=== PATIENT | female | born 1935 | race Caucasian/White ===

== ENCOUNTER 2019-01-03 14:38 | Observation (INO) | payer MEDICARE, OTHER ==
[2019-01-03] MEDS ORDERED: ASPIRIN 81 MG PO STA (14:47)
[2019-01-03 15:08] LABS: Basophils % (A) 0 %; Eosinophils # (A) 0.1 k/uL (0-0.7); Eosinophils % (A) 5 %; HCT 35.6 % (34.0-46.0); HGB 11.7 gm/dL (11.4-16.0); Lymphocytes # (A) 0.8 k/uL (1.0-4.8); Lymphocytes % (A) 25 %; MCH 29.8 pg (25.0-35.0); MCHC 32.9 g/dL (31.0-37.0); MCV 90.7 fL (80.0-100.0); Mean Platelet Volume 7.8; Monocytes # (A) 0.2 k/uL (0-1.0); Monocytes % (A) 8 %; Neutrophils # (A) 1.7 k/uL (1.3-7.7); Neutrophils % (A) 58 %; Platelet Count 178 k/uL (150-450); RBC 3.92 m/uL (3.80-5.40); RDW 14.8 % (11.5-15.5)
--- NOTE | 2019-01-03 15:19 | ED ---
General Adult HPI - General Chief complaint: Chest Pain Stated complaint: EKG changes Time Seen by Provider: 01/03/19 14:45 Source: patient, EMS, RN notes reviewed Mode of arrival: EMS Limitations: no limitations - History of Present Illness Initial comments: 83-year-old female with complicated past medical history presents to the emergency department for a chief complaint of EKG changes. Patient had a routine EKG done 2 days ago. Apparently it was transmitted to a food and beverage lead who stated that he could not rule out some anterior elevation. Apparently rhythm strip was sent instead of a twelve-lead EKG. She is denying any chest pain or shortness of breath. She is feeling absolutely her normal self. No abdominal pain. No back pain. No diaphoresis.Patient has no other complaints at this time including shortness of breath, chest pain, abdominal pain, nausea or vomiting, headache, or visual changes. - Related Data Home Medications Medication Instructions Recorded Confirmed Acetaminophen [Tylenol] 2 tab PO Q4H PRN 02/06/14 04/14/14 B Infantis/B Ani/B Pratik/B Bifid 1 each PO BID 02/06/14 04/15/14 [Probiotic 4X Caplet] FLUoxetine HCL 1 tab PO DAILY 02/06/14 04/15/14 Ferrous Sulfate [Feosol] 325 mg PO DAILY 02/06/14 04/15/14 Ipratropium/Albuterol Sulfate 3 ml INHALATION TID 02/06/14 04/14/14 [Duoneb 0.5 mg-3 mg/3 ml Soln] Multivitamins, Thera [Multivitamin 1 each PO DAILY 02/06/14 04/14/14 (formulary)] Propafenone HCl 150 mg PO TID 02/06/14 04/15/14 Gabapentin [Neurontin] 100 mg PO BID 02/12/14 04/15/14 Previous Rx's Medication Instructions Recorded ALPRAZolam [Xanax] 0.25 mg PO TID PRN #60 tablet 02/18/14 Bisacodyl [Dulcolax] 5 mg PO DAILY PRN #30 tablet. 02/18/14 Carbidopa-Levodopa 25-100 mg 1 each PO TID #90 tab 04/19/14 [Sinemet 25-100 mg] HYDROcodone/APAP 5-325MG [Richardson 1 each PO Q4HR PRN #60 tab 04/19/14 5-325] Pantoprazole Sodium [Protonix] 40 mg PO DAILY #30 tab 04/19/14 Allergies Allergy/AdvReac Type Severity Reaction Status Date / Time pneumococcal vaccine Allergy Rash/Hives Verified 01/03/19 14:46 Review of Systems ROS Statement: Those systems with pertinent positive or pertinent negative responses have been documented in the HPI. ROS Other: All systems not noted in ROS Statement are negative. Past Medical History Past Medical History: Atrial Fibrillation, Atrial Flutter, COPD, GERD/Reflux, GI Bleed, Hyperlipidemia, Memory Impairment, Osteoarthritis (OA), Rheumatoid Arthritis (RA), Thyroid Disorder Additional Past Medical History / Comment(s): A. fib/A flutter, COPD, hyperlipidemia, vascular dementia, osteoarthritis, RA, overactive bladder, Parkinson disease, depression, chronic kidney disease stage II, left thyroid nodule, meningioma,. chronic low back pain status post recent L5-S1 discectomy with removal of epidural mass. Last Myocardial Infarction Date:: I thyroid left nodule diagnosed October 2012 suspected goiter, meningioma History of Any Multi-Drug Resistant Organisms: MRSA Date of last positivie culture/infection: 2012 MDRO Source:: unknown Past Surgical History: Appendectomy, Back Surgery, Cholecystectomy, Hysterectomy, Orthopedic Surgery Additional Past Surgical History / Comment(s): multiple leg surgeries, bladder prolapse surgery, bilateral total knee arthroplasty, lumbar laminectomy L5-S1 discectomy with epidural mass resection 02/17/[address] Cosby, appendectomy,. cholecystectomy, hysterectomy orthopedic surgery. Past Anesthesia/Blood Transfusion Reactions: No Reported Reaction Past Psychological History: No Psychological Hx Reported, Anxiety, Depression Smoking Status: Never smoker Past Alcohol Use History: None Reported - Past Family History Father Family Medical History: Myocardial Infarction ([place]) (Father at the age of 74 from myocardial infarction.) Mother Family Medical History: Cancer (Mother from breast cancer) Sister(s) Family Medical History: Myocardial Infarction ([place]) (Patient had 2 sisters one of them from myocardial infarction the other one is living and well) Daughter(s) Family Medical History: No Reported History (Patient has 4 children no major medical problem.) General Exam Limitations: no limitations General appearance: alert, in no apparent distress Head exam: Present: atraumatic, normocephalic, normal inspection Eye exam: Present: normal appearance, PERRL, EOMI. Absent: scleral icterus, conjunctival injection, periorbital swelling ENT exam: Present: normal exam, mucous membranes moist Neck exam: Present: normal inspection, full ROM. Absent: tenderness, meningi smus, lymphadenopathy Respiratory exam: Present: normal lung sounds bilaterally. Absent: respiratory distress, wheezes, rales, rhonchi, stridor Cardiovascular Exam: Present: regular rate, normal rhythm, normal heart sounds. Absent: systolic murmur, diastolic murmur, rubs, gallop, clicks GI/Abdominal exam: Present: soft, normal bowel sounds. Absent: distended, tenderness, guarding, rebound, rigid Neurological exam: Present: alert, oriented X3, CN II-XII intact Psychiatric exam: Present: normal affect, normal mood Course Vital Signs 01/03/19 01/03/19 14:40 15:45 Temperature 98.5 F Pulse Rate 78 68 Respiratory 18 18 Rate Blood Pressure 162/108 143/68 O2 Sat by Pulse 94 L 94 L Oximetry EKG Findings - EKG Comments: EKG Findings:: Normal sinus rhythm, ventricular rate 71, NV interval 172, QTC 491 Medical Decision Making - Medical Decision Making 83-year-old female presents to the emergency department for a chief complaint of EKG changes. Apparently patient had an EKG obtained on Friday and was told today by a food and beverage lead in [place] that he could not rule out some anterior ST elevation. Therefore she was sent here from [facility]. Denying any chest pain or shortness of breath at this time. At this time no ST elevation on EKG. CBC CMP unremarkable. However there is a mild elevation of troponin at 0.032. She will be observed with cardiology consult. - Lab Data Result diagrams: 01/03/19 15:00 01/03/19 15:00 Lab Results 01/03/19 01/03/19 01/03/19 Range/Units 15:00 15:00 15:00 WBC 3.0 L (3.8-10.6) k/uL RBC 3.92 (3.80-5.40) m/uL Hgb 11.7 (11.4-16.0) gm/dL Hct 35.6 (34.0-46.0) % MCV 90.7 (80.0-100.0) fL MCH 29.8 (25.0-35.0) pg MCHC 32.9 (31.0-37.0) g/dL RDW 14.8 (11.5-15.5) % Plt Count 178 (150-450) k/uL Neutrophils % 58 % Lymphocytes % 25 % Monocytes % 8 % Eosinophils % 5 % Basophils % 0 % Neutrophils # 1.7 (1.3-7.7) k/uL Lymphocytes # 0.8 L (1.0-4.8) k/uL Monocytes # 0.2 (0-1.0) k/uL Eosinophils # 0.1 (0-0.7) k/uL Basophils # 0.0 (0-0.2) k/uL PT 10.6 (9.0-12.0) sec INR 1.0 (<1.2) APTT 24.1 (22.0-30.0) sec Sodium 140 (137-145) mmol/L Potassium 4.8 (3.5-5.1) mmol/L Chloride 103 (98-107) mmol/L Carbon Dioxide 31 H (22-30) mmol/L Anion Gap 6 mmol/L BUN 29 H (7-17) mg/dL Creatinine 1.00 (0.52-1.04) mg/dL Est GFR (CKD-EPI)AfAm 61 (>60 ml/min/1.73 sqM) Est GFR (CKD-EPI)NonAf 53 (>60 ml/min/1.73 sqM) Glucose 89 (74-99) mg/dL Calcium 9.5 (8.4-10.2) mg/dL Magnesium 1.8 (1.6-2.3) mg/dL Total Bilirubin 0.3 (0.2-1.3) mg/dL AST 19 (14-36) U/L ALT <6 L (9-52) U/L Alkaline Phosphatase 53 (38-126) U/L Troponin I (0.000-0.034) ng/mL Total Protein 6.4 (6.3-8.2) g/dL Albumin 4.0 (3.5-5.0) g/dL 01/03/19 Range/Units 15:00 WBC (3.8-10.6) k/uL RBC (3.80-5.40) m/uL Hgb (11.4-16.0) gm/dL Hct (34.0-46.0) % MCV (80.0-100.0) fL MCH (25.0-35.0) pg MCHC (31.0-37.0) g/dL RDW (11.5-15.5) % Plt Count (150-450) k/uL Neutrophils % % Lymphocytes % % Monocytes % % Eosinophils % % Basophils % % Neutrophils # (1.3-7.7) k/uL Lymphocytes # (1.0-4.8) k/uL Monocytes # (0-1.0) k/uL Eosinophils # (0-0.7) k/uL Basophils # (0-0.2) k/uL PT (9.0-12.0) sec INR (<1.2) APTT (22.0-30.0) sec Sodium (137-145) mmol/L Potassium (3.5-5.1) mmol/L Chloride (98-107) mmol/L Carbon Dioxide (22-30) mmol/L Anion Gap mmol/L BUN (7-17) mg/dL Creatinine (0.52-1.04) mg/dL Est GFR (CKD-EPI)AfAm (>60 ml/min/1.73 sqM) Est GFR (CKD-EPI)NonAf (>60 ml/min/1.73 sqM) Glucose (74-99) mg/dL Calcium (8.4-10.2) mg/dL Magnesium (1.6-2.3) mg/dL Total Bilirubin (0.2-1.3) mg/dL AST (14-36) U/L ALT (9-52) U/L Alkaline Phosphatase (38-126) U/L Troponin I 0.032 (0.000-0.034) ng/mL Total Protein (6.3-8.2) g/dL Albumin (3.5-5.0) g/dL Disposition Clinical Impression: Elevated troponin Disposition: ADMITTED IP TO THIS HOSP Condition: Fair Is patient prescribed a controlled substance at d/c from ED?: No Referrals: Maico Rolle MD [Primary Care Provider] - 1-2 days Time of Disposition: 16:28
[2019-01-03 15:20] LABS: ALT <6 U/L (9-52); AST 19 U/L (14-36); Alkaline Phosphatase 53 U/L (38-126); Anion Gap 6 mmol/L; Blood Urea Nitrogen 29 mg/dL (7-17); Calcium 9.5 mg/dL (8.4-10.2); Carbon Dioxide 31 mmol/L (22-30); Chloride 103 mmol/L (98-107); Glucose 89 mg/dL (74-99); Magnesium 1.8 mg/dL (1.6-2.3); Potassium 4.8 mmol/L (3.5-5.1); Sodium 140 mmol/L (137-145); Total Bilirubin 0.3 mg/dL (0.2-1.3); Total Protein 6.4 g/dL (6.3-8.2)
[2019-01-03] MEDS ORDERED: SODIUM CHLORIDE 0.9% 500 ML 500 ML IV STA (15:20)
--- NOTE | 2019-01-03 15:24 | XR ---
EXAMINATION TYPE: XR chest 2V DATE OF EXAM: 01/03/2019 COMPARISON: NONE HISTORY: Chest pain. History of COPD. TECHNIQUE: Frontal and lateral views of the chest are obtained. FINDINGS: There are low lung volumes creating new platelike bibasilar airspace disease and midlung a irspace disease, likely atelectasis. Calcified granulomas are again seen in the mediastinum. Enlargem ent of the mediastinal contour is likely relative based on hypoventilation. No acute osseous process is seen. No sizable pleural effusion or pneumothorax. Mild pulmonary vascular congestion, also likely exaggerated by low lung volumes. IMPRESSION: Multifocal linear airspace disease is likely atelectasis with hypoventilatory lungs. Mil d pulmonary vascular congestion is also likely exaggerated by lung volumes.
[2019-01-03 15:43] LABS: Partial Thromboplastin Time 24.1 sec (22.0-30.0); Prothrombin Time 10.6 sec (9.0-12.0)
[2019-01-03] MEDS ORDERED: NITROGLYCERIN SL TABS 0.4 MG TAB SUBLINGUAL PRN (16:22)
[2019-01-03] MEDS ORDERED: FLUTICASONE 50MCG/SPRAY NASAL 16GM EA NOSTRIL PRN (18:12)
[2019-01-03] MEDS ORDERED: IPRATROPIUM-ALBUTEROL 3 ML NEB INHALATION PRN (18:12)
[2019-01-03] MEDS ORDERED: MAGNESIUM HYDROXIDE 2,400 MG/10 ML CUP PO PRN (18:12)
[2019-01-03] MEDS ORDERED: NA PHOS,M-B/NA PHOS,DI-BA 133 ML ENEMA RECTAL PRN (18:12)
[2019-01-03] MEDS ORDERED: BISACODYL 10 MG SUPP RECTAL PRN (18:12)
[2019-01-03] MEDS ORDERED: MAG HYDROX/AL HYDROX/SIMETH 30 ML CUP PO PRN (18:12)
[2019-01-03] MEDS ORDERED: ACETAMINOPHEN TAB 325 MG TAB PO PRN (18:12)
[2019-01-03] MEDS ORDERED: HYDROcodone/APAP 5-325MG 1 EACH TAB PO PRN (18:12)
[2019-01-03] MEDS: FLUTICASONE 110 MCG INHALER INHALATION SCH (19:29)
[2019-01-03] MEDS: PROPAFENONE 150 MG TAB PO SCH (20:53)
[2019-01-03] MEDS: CARBIDOPA-LEVODOPA 25-100 MG 1 EACH TAB PO SCH (20:53)
[2019-01-03] MEDS ORDERED: HYDROcodone/APAP 5-325MG 1 EACH TAB PO SCH (21:00)
[2019-01-04 03:47] LABS: Cholesterol 139 mg/dL (<200); HDL Cholesterol 49 mg/dL (40-60); LDL Cholesterol,Calculated 71 mg/dL (0-99); Triglycerides 95 mg/dL (<150)
[2019-01-04 07:25] VITALS: BP 136/76; PULSE 75; RESP 17; TEMP 98.5
[2019-01-04] MEDS ORDERED: GABAPENTIN 100 MG CAP PO SCH (08:00)
--- NOTE | 2019-01-04 08:54 | P.CRDCN ---
History of Present Illness Consult date: 01/04/19 History of present illness: This is a pleasant 83-year-old female patient who is somewhat poor historian. The patient does have a past medical history significant for vascular dementia. Beside that she does have history of paroxysmal atrial fibrillation. The patient does not know exactly why she is here. According to the records as well as the nurse taking care of the patient, for some reason she ended having an EKG at the alf where she resides, and the EKG was submitted to a kettle cleaner who recommended the patient to be admitted to the hospital. I did review the EKG so far and that revealed sinus rhythm without any ischemic ST or T-wave abnormalities. The patient herself denies any symptoms of chest pain, shortness of breath, dizziness, heart racing, or syncope. The patient is overall poor historian. She does have history of chronic obstructive pulmonary disease and she does have chronic shortness of breath which does not seems to be worse. She does not have any active chest pain at this point. The cardiac enzymes were checked and came in to be unremarkable. The rest of the blood work came in to be unremarkable as well. The chest x-ray the show mild vascular congestions only. The patient doesn't seems to be in any overt congestive heart failure. The patient beside that denies any fever, chills, cough. She does have poor functional capacity overall and she cannot walk on her own. She is a permanent resident at one of the [facility]. Past Medical History Past Medical History: Atrial Fibrillation, Atrial Flutter, COPD, GERD/Reflux, GI Bleed, Hyperlipidemia, Memory Impairment, Osteoarthritis (OA), Rheumatoid Arthritis (RA), Thyroid Disorder Additional Past Medical History / Comment(s): A. fib/A flutter, COPD, hyperlipidemia, vascular dementia, osteoarthritis, RA, overactive bladder, Parkinson disease, depression, chronic kidney disease stage II, left thyroid nodule, meningioma,. chronic low back pain status post recent L5-S1 discectomy with removal of epidural mass. Last Myocardial Infarction Date:: I thyroid left nodule diagnosed October 2012 suspected goiter, meningioma History of Any Multi-Drug Resistant Organisms: MRSA Date of last positivie culture/infection: 2012 MDRO Source:: unknown Past Surgical History: Appendectomy, Back Surgery, Cholecystectomy, Hysterectomy, Orthopedic Surgery Additional Past Surgical History / Comment(s): multiple leg surgeries, bladder prolapse surgery, bilateral total knee arthroplasty, lumbar laminectomy L5-S1 discectomy with epidural mass resection 02/17/[address] Cosby, appendectomy,. cholecystectomy, hysterectomy orthopedic surgery. Past Anesthesia/Blood Transfusion Reactions: No Reported Reaction Past Psychological History: No Psychological Hx Reported, Anxiety, Depression Smoking Status: Never smoker Past Alcohol Use History: None Reported Past Drug Use History: None Reported - Past Family History Father Family Medical History: Myocardial Infarction ([place]) Mother Family Medical History: Cancer Sister(s) Family Medical History: Myocardial Infarction ([place]) Daughter(s) Family Medical History: No Reported History Medications and Allergies Home Medications Medication Instructions Recorded Confirmed Type Acetaminophen [Tylenol] 650 mg PO Q4H PRN 02/06/14 01/03/19 History FLUoxetine HCL 40 mg PO DAILY 02/06/14 01/03/19 History Ferrous Sulfate [Feosol] 325 mg PO DAILY@1700 02/06/14 01/03/19 History Ipratropium/Albuterol Sulfate 3 ml INHALATION RT-QID PRN 02/06/14 01/03/19 History [Duoneb 0.5 mg-3 mg/3 ml Soln] Multivitamins, Thera [Multivitamin 1 tab PO DAILY@1700 02/06/14 01/03/19 History (formulary)] Propafenone HCl 150 mg PO TID@0800,1400,2100 02/06/14 01/03/19 History Gabapentin [Neurontin] 100 mg PO BID@0800,1700 02/12/14 01/03/19 History Pantoprazole Sodium [Protonix] 40 mg PO DAILY #30 tab 04/19/14 01/03/19 Rx Bisacodyl [Dulcolax] 10 mg RECTAL DAILY PRN 01/03/19 01/03/19 History Carbidopa-Levodopa 25-100 mg 1 tab PO TID@0800,1400,209901/03/19 01/03/19 History [Sinemet 25-100 mg] Cholecalciferol [Vitamin D3 (25 1,000 unit PO DAILY@0 01/03/19 01/03/19 History Mcg = 1000 Iu)] Fluticasone Nasal [place] [Flonase 1 spray EA NOSTRIL DAILY PRN 01/03/19 01/03/19 History Nasal [place]] Fluticasone Propionate [Flovent 1 puff INHALATION RT-BID@0800,1700 01/03/19 01/03/19 History Hfa 110 mcg] Furosemide [Lasix] 40 mg PO DAILY 01/03/19 01/03/19 History HYDROcodone/APAP 5-325MG [Maidens 1 tab PO HS 01/03/19 01/03/19 History 5-325] HYDROcodone/APAP 5-325MG [[place] 1 tab PO Q4HR PRN 01/03/19 01/03/19 History 5-325] L.acidoph,Paracasei, B.lactis 1 cap PO DAILY@1700 01/03/19 01/03/19 History [Probiotic] Loratadine [Claritin] 10 mg PO DAILY 01/03/19 01/03/19 History Losartan [Cozaar] 25 mg PO DAILY 01/03/19 01/03/19 History Mag Hydrox/Al Hydrox/Simeth 15 ml PO QID PRN 01/03/19 01/03/19 History [Maalox] Magnesium Hydroxide [Milk of 7,200 mg PO DAILY PRN 01/03/19 01/03/19 History Magnesia Concentrate] Magnesium Oxide [Magox 400] 400 mg PO DAILY@1700 01/03/19 01/03/19 History Na Phos,M-B/Na Phos,Di-Ba [Fleet 133 ml RECTAL ONCE PRN 01/03/19 01/03/19 History Adult] Potassium Chloride ER [K-Dur 20] 20 meq PO DAILY 01/03/19 01/03/19 History Allergies Allergy/AdvReac Type Severity Reaction Status Date / Time pneumococcal vaccine Allergy Rash/Hives Verified 01/03/19 16:38 Physical Exam Vitals: Vital Signs Temp Pulse Pulse Resp BP BP Pulse Ox 01/04/19 07:25 98.5 F 75 17 136/76 91 L 01/04/19 04:10 74 16 01/04/19 04:00 98.0 F 67 16 138/76 97 01/03/19 23:28 98.4 F 87 14 117/57 97 01/03/19 18:08 97.9 F 67 18 138/65 93 L 01/03/19 17:57 99.1 F 69 18 156/99 94 L 01/03/19 17:39 67 18 152/75 94 L 01/03/19 15:45 68 18 143/68 94 L 01/03/19 14:40 98.5 F 78 18 162/108 94 L Intake and Output 01/03/19 01/04/19 01/04/19 22:59 06:59 14:59 Intake Total 0 Balance 0 Intake: Oral 0 Other: Voiding Method Diaper Diaper Incontinent Incontinent # Voids 1 - Constitutional General appearance: no acute distress - Respiratory Respiratory: bilateral: CTA - Cardiovascular Rhythm: regular Heart sounds: normal: S1, S2 Results 01/03/19 15:00 01/03/19 15:00 Cardiac Enzymes 01/03/19 01/03/19 01/03/19 Range/Units 15:00 15:00 21:12 AST 19 (14-36) U/L Troponin I 0.032 0.032 (0.000-0.034) ng/mL 01/04/19 Range/Units 02:48 AST (14-36) U/L Troponin I 0.033 (0.000-0.034) ng/mL Coagulation 01/03/19 Range/Units 15:00 PT 10.6 (9.0-12.0) sec APTT 24.1 (22.0-30.0) sec Lipids 01/04/19 Range/Units 02:48 Triglycerides 95 (<150) mg/dL Cholesterol 139 (<200) mg/dL HDL Cholesterol 49 (40-60) mg/dL CBC 01/03/19 Range/Units 15:00 WBC 3.0 L (3.8-10.6) k/uL RBC 3.92 (3.80-5.40) m/uL Hgb 11.7 (11.4-16.0) gm/dL Hct 35.6 (34.0-46.0) % Plt Count 178 (150-450) k/uL Comprehensive Metabolic Panel 01/03/19 Range/Units 15:00 Sodium 140 (137-145) mmol/L Potassium 4.8 (3.5-5.1) mmol/L Chloride 103 (98-107) mmol/L Carbon Dioxide 31 H (22-30) mmol/L BUN 29 H (7-17) mg/dL Creatinine 1.00 (0.52-1.04) mg/dL Glucose 89 (74-99) mg/dL Calcium 9.5 (8.4-10.2) mg/dL AST 19 (14-36) U/L ALT <6 L (9-52) U/L Alkaline Phosphatase 53 (38-126) U/L Total Protein 6.4 (6.3-8.2) g/dL Albumin 4.0 (3.5-5.0) g/dL Current Medications Generic Name Dose Route Start Last Admin Trade Name Freq PRN Reason Stop Dose Admin Acetaminophen 650 mg 01/03/19 18:12 Tylenol Tab PO Q4H PRN Fever and/ or Pain Hydrocodone Bitart/Acetaminophen 1 each 01/03/19 21:00 01/03/19 20:53 Maidens 5-325 PO 1 each HS STEPHON Administration Hydrocodone Bitart/Acetaminophen 1 each 01/03/19 18:12 [place]ens 5-325 PO Q4HR PRN Moderate Pain Al Hydroxide/Mg Hydroxide 15 ml 01/03/19 18:12 Maalox PO QID PRN GI Upset Albuterol/Ipratropium 3 ml 01/03/19 18:12 Duoneb 0.5 Mg-3 Mg/3 Ml Soln INHALATION RT-QID PRN Shortness Of Breath Aspirin 325 mg 01/04/19 09:[address] [facility] Bisacodyl 10 mg 01/03/19 18:12 Dulcolax RECTAL DAILY PRN Constipation Carbidopa/Levodopa 1 each 01/03/19 21:00 01/03/19 20:53 Sinemet 25-100 PO 1 each TID@0800,1400,2100 [facility] Administration Cholecalciferol 1,000 unit 01/04/19 17:00 Vitamin D3 (25 Mcg = 1000 Iu) PO DAILY@1700 [facility] Ferrous Sulfate 325 mg 01/04/19 17:00 Feosol PO DAILY@1700 [facility] Fluticasone Propionate 1 spray 01/03/19 18:12 Flonase Nasal [place] EA NOSTRIL DAILY PRN Allergy Symptoms Fluticasone Propionate 1 puff 01/03/19 19:00 01/03/19 19:29 Flovent 110 Mcg Inhaler INHALATION 1 puff RT-BID@0800,1700 [facility] Administration Furosemide 40 mg 01/04/19 09:[address] [facility] Gabapentin 100 mg 01/04/19 08:00 Neurontin PO BID@0800,1700 [facility] Loratadine 10 mg 01/04/19 09:00 Claritin PO DAILY [facility] Losartan Potassium 25 mg 01/04/19 09:00 Cozaar PO DAILY [facility] Magnesium Hydroxide 2,400 mg 01/03/19 18:12 Milk Of Magnesia PO DAILY PRN Constipation Magnesium Oxide 400 mg 01/04/19 17:00 Mag-Ox PO DAILY@1700 [facility] Multivitamins 1 each 01/04/19 17:00 Theragran PO DAILY@1700 [facility] Nitroglycerin 0.4 mg 01/03/19 16:22 Nitrostat SUBLINGUAL Q5M PRN Chest Pain Non-Formulary Medication 40 mg 01/04/19 09:00 Fluoxetine Hcl [Fluoxetine Hcl] PO DAILY [facility] Non-Formulary Medication 1 cap 01/04/19 17:00 L.Acidoph,Paracasei, B.Lactis [Probiotic] PO DAILY@1700 [facility] Pantoprazole Sodium 40 mg 01/04/19 09:[address] [facility] Potassium Chloride 20 meq 01/04/19 09:00 K-Dur [address] [facility] Propafenone HCl 150 mg 01/03/19 21:00 01/03/19 20:53 Rythmol PO 150 mg TID@0800,1400,2100 [facility] Administration Sodium Biphosphate/Sodium Phosphate 133 ml 01/03/19 18:12 Fleet Adult RECTAL ONCE PRN Constipation Intake and Output 01/03/19 01/04/19 01/04/19 22:59 06:59 14:59 Intake Total 0 Balance 0 Intake: Oral 0 Other: Voiding Method Diaper Diaper Incontinent Incontinent # Voids 1 01/03/19 15:00 01/03/19 15:00 Assessment and Plan Assessment: Assessment #1 underlying dementia #2 COPD #3 paroxysmal atrial fibrillation #4 multiple comorbid conditions Plan #1 the patient does not have any active chest pain at this point #2 she does not seems to be in any overt congestive heart failure #3 acute coronary event was ruled out #4 the patient can be discharged to extended care facility Thank you for allowing us participate in the care of the patient.
[2019-01-04] MEDS: FLUTICASONE 110 MCG INHALER INHALATION SCH (08:58)
[2019-01-04] MEDS ORDERED: ASPIRIN 325 MG TAB PO SCH (09:00)
[2019-01-04] MEDS ORDERED: LORATADINE 10 MG TAB PO SCH (09:00)
[2019-01-04] MEDS ORDERED: FUROSEMIDE 40 MG TAB PO SCH (09:00)
[2019-01-04] MEDS ORDERED: PANTOPRAZOLE 40 MG TABLET PO SCH (09:00)
[2019-01-04] MEDS ORDERED: POTASSIUM CHLORIDE ER 20 MEQ TAB.ER PO SCH (09:00)
[2019-01-04] MEDS ORDERED: LOSARTAN 25 MG TAB PO SCH (09:00)
[2019-01-04] MEDS ORDERED: FLUOXETINE HCL 40 MG PO SCH (09:00)
[2019-01-04] MEDS: CARBIDOPA-LEVODOPA 25-100 MG 1 EACH TAB PO SCH ×2 (09:35→13:43)
[2019-01-04] MEDS: PROPAFENONE 150 MG TAB PO SCH ×2 (09:35→13:43)
--- NOTE | 2019-01-04 10:26 | P.HPIM ---
History of Present Illness H&P Date: 01/04/19 Chief Complaint: Abnormal EKG HISTORY AND PHYSICAL AND DISCHARGE SUMMARY: This is an 83-year-old female patient of Dr. Rolle, long-term resident at [facility] with past medical history of vascular dementia, paroxysmal atrial fibrillation, hyperlipidemia, chronic obstructive pulmonary disease, osteoarthritis, rheumatoid arthritis, thyroid disorder, peptic ulcer disease, Parkinson disease, meningioma, DDD status post lumbar discectomy. Patient had EKG done at [facility] that revealed ST elevation and patient was sent to [facility] for evaluation. Repeat EKG was done that revealed sinus rhythm without any ischemic ST or T-wave abnormalities. The patient herself denies any symptoms of chest pain, shortness of breath, dizziness, heart racing, or syncope. The patient is overall poor historian and does not know why she is here. Patient was placed on the Observation Unit and has been seen in consultation by Dr. Butts and he has cleared the patient for discharge back to [facility]. Review of Systems All systems: negative Constitutional: Denies anorexia, Denies chills, Denies fatigue, Denies fever, Denies lethargy, Denies malaise, Denies poor appetite, Denies weakness, Denies weight loss Eyes: denies blurred vision, denies pain Ears, nose, mouth and throat: Denies dysphagia, Denies headache, Denies nasal congestion, Denies nasal discharge, Denies sore throat, Denies vertigo Cardiovascular: Denies chest pain, Denies leg edema, Denies palpitations, Denies shortness of breath, Denies syncope Respiratory: Denies as per HPI, Denies cough, Denies cough with sputum, Denies dyspnea, Denies excessive sputum, Denies hemoptysis, Denies home oxygen, Denies wheezing Gastrointestinal: Denies abdominal pain, Denies diarrhea, Denies loss of appetite, Denies melena, Denies nausea, Denies vomiting Genitourinary: Denies dysuria, Denies hematuria Musculoskeletal: Reports gait dysfunction, Denies myalgias Integumentary: Denies pruritus, Denies rash, Denies wounds Neurological: Denies change in mentation, Denies change in speech, Denies numbness, Denies weakness Psychiatric: Denies anxiety, Denies depression Endocrine: Denies fatigue, Denies weight change Past Medical History Past Medical History: Atrial Fibrillation, Atrial Flutter, COPD, GERD/Reflux, GI Bleed, Hyperlipidemia, Memory Impairment, Osteoarthritis (OA), Rheumatoid Ar thritis (RA), Thyroid Disorder Additional Past Medical History / Comment(s): A. fib/A flutter, COPD, hyperlipidemia, vascular dementia, osteoarthritis, RA, overactive bladder, Parkinson disease, depression, chronic kidney disease stage II, left thyroid nodule, meningioma,. chronic low back pain status post recent L5-S1 discectomy with removal of epidural mass. Last Myocardial Infarction Date:: I thyroid left nodule diagnosed October 2012 suspected goiter, meningioma History of Any Multi-Drug Resistant Organisms: MRSA Date of last positivie culture/infection: 2012 MDRO Source:: unknown Past Surgical History: Appendectomy, Back Surgery, Cholecystectomy, Hysterectomy, Orthopedic Surgery Additional Past Surgical History / Comment(s): multiple leg surgeries, bladder prolapse surgery, bilateral total knee arthroplasty, lumbar laminectomy L5-S1 discectomy with epidural mass resection 02/17/[address] Cosby, appendectomy,. cholecystectomy, hysterectomy orthopedic surgery. Past Anesthesia/Blood Transfusion Reactions: No Reported Reaction Past Psychological History: No Psychological Hx Reported, Anxiety, Depression Smoking Status: Never smoker Past Alcohol Use History: None Reported Additional Past Alcohol Use History / Comment(s): Patient currently resides at [facility]. She is wheelchair bound. Past Drug Use History: None Reported - Past Family History Father Family Medical History: Myocardial Infarction ([place]) Mother Family Medical History: Cancer Sister(s) Family Medical History: Myocardial Infarction ([place]) Daughter(s) Family Medical History: No Reported History Medications and Allergies Home Medications Medication Instructions Recorded Confirmed Type Acetaminophen [Tylenol] 650 mg PO Q4H PRN 02/06/14 01/03/19 History FLUoxetine HCL 40 mg PO DAILY 02/06/14 01/03/19 History Ferrous Sulfate [Feosol] 325 mg PO DAILY@169902/06/14 01/03/19 History Ipratropium/Albuterol Sulfate 3 ml INHALATION RT-QID PRN 02/06/14 01/03/19 History [Duoneb 0.5 mg-3 mg/3 ml Soln] Multivitamins, Thera [Multivitamin 1 tab PO DAILY@169902/06/14 01/03/19 History (formulary)] Propafenone HCl 150 mg PO TID@0800,1400,2100 02/06/14 01/03/19 History Gabapentin [Neurontin] 100 mg PO BID@0800,1700 02/12/14 01/03/19 History Pantoprazole Sodium [Protonix] 40 mg PO DAILY #30 tab 04/19/14 01/03/19 Rx Bisacodyl [Dulcolax] 10 mg RECTAL DAILY PRN 01/03/19 01/03/19 History Carbidopa-Levodopa 25-100 mg 1 tab PO TID@0800,1400,209901/03/19 01/03/19 History [Sinemet 25-100 mg] Cholecalciferol [Vitamin D3 (25 1,000 unit PO DAILY@169901/03/19 01/03/19 History Mcg = 1000 Iu)] Fluticasone Nasal [place] [Flonase 1 spray EA NOSTRIL DAILY PRN 01/03/19 01/03/19 History Nasal [place]] Fluticasone Propionate [Flovent 1 puff INHALATION RT-BID@0800,169901/03/19 01/03/19 History Hfa 110 mcg] Furosemide [Lasix] 40 mg PO DAILY 01/03/19 01/03/19 History HYDROcodone/APAP 5-325MG [[place] 1 tab PO HS 01/03/19 01/03/19 History 5-325] HYDROcodone/APAP 5-325MG [[place] 1 tab PO Q4HR PRN 01/03/19 01/03/19 History 5-325] L.acidoph,Paracasei, B.lactis 1 cap PO DAILY@169901/03/19 01/03/19 History [Probiotic] Loratadine [Claritin] 10 mg PO DAILY 01/03/19 01/03/19 History Losartan [Cozaar] 25 mg PO DAILY 01/03/19 01/03/19 History Mag Hydrox/Al Hydrox/Simeth 15 ml PO QID PRN 01/03/19 01/03/19 History [Maalox] Magnesium Hydroxide [Milk of 7,200 mg PO DAILY PRN 01/03/19 01/03/19 History Magnesia Concentrate] Magnesium Oxide [Magox 400] 400 mg PO DAILY@169901/03/19 01/03/19 History Na Phos,M-B/Na Phos,Di-Ba [Fleet 133 ml RECTAL ONCE PRN 01/03/19 01/03/19 History Adult] Potassium Chloride ER [K-Dur 20] 20 meq PO DAILY 01/03/19 01/03/19 History Allergies Allergy/AdvReac Type Severity Reaction Status Date / Time pneumococcal vaccine Allergy Rash/Hives Verified 01/03/19 16:38 Physical Exam Vitals: Vital Signs Temp Pulse Pulse Resp BP BP Pulse Ox 01/04/19 07:25 98.5 F 75 17 136/76 91 L 01/04/19 04:10 74 16 01/04/19 04:00 98.0 F 67 16 138/76 97 01/03/19 23:28 98.4 F 87 14 117/57 97 01/03/19 18:08 97.9 F 67 18 138/65 93 L 01/03/19 17:57 99.1 F 69 18 156/99 94 L 01/03/19 17:39 67 18 152/75 94 L 01/03/19 15:45 68 18 143/68 94 L 01/03/19 14:40 98.5 F 78 18 162/108 94 L Intake and Output 01/03/19 01/04/19 01/04/19 22:59 06:59 14:59 Intake Total 0 Balance 0 Intake: Oral 0 Other: Voiding Method Diaper Diaper Incontinent Incontinent # Voids 1 General appearance: Obese, no distress - EENT Eyes: Reports EOMI, Reports PERRLA, Denies photophobia ENT: Reports hard of hearing, Reports NA/AT, Reports normal oropharynx, Denies thrush Ears: bilateral: normal - Neck Neck: Reports normal ROM, Denies lymphadenopathy, Denies stridor, Denies thyromegaly Carotids: bilateral: upstroke delayed Thyroid: bilateral: enlarged - Respiratory Respiratory: bilateral: diminished, negative: dullness, rales, rhonchi, wheezing, prolonged expiration, prolonged inspiration - Cardiovascular Rhythm: regular Heart sounds: normal: S1, S2 Abnormal Heart Sounds: Reports systolic murmur (Systolic ejection murmur 2/6 located in the left sternal border), Reports S3 Gallop, Denies rub, Denies S4 Gallop, Denies click - Gastrointestinal General gastrointestinal: Reports normal bowel sounds, nondistended, Reports soft, no tenderness, Denies hepatomegaly, Denies organomegaly, Denies rigid, Denies scaphoid, Denies splenomegaly, Denies umbilical hernia, Denies ventral hernia - Integumentary Integumentary: Normal - Neurologic Neurologic: CNII-XII intact - Musculoskeletal Musculoskeletal: Reports generalized weakness, Reports left sided weakness, deformity of the left foot - Psychiatric Psychiatric: Reports A&O x's 3, noted short-term memory deficits, Reports appropriate affect, Reports intact judgment & insight Results CBC & Chem 7: 01/03/19 15:00 01/03/19 15:00 Labs: Abnormal Lab Results - Last 24 Hours (Table) 01/03/19 01/03/19 Range/Units 15:00 15:00 WBC 3.0 L (3.8-10.6) k/uL Lymphocytes # 0.8 L (1.0-4.8) k/uL Carbon Dioxide 31 H (22-30) mmol/L BUN 29 H (7-17) mg/dL ALT <6 L (9-52) U/L Thrombosis Risk Factor Assmnt - Choose All That Apply Any of the Below Risk Factors Present?: Yes Each Factor Represents 1 point: Abnormal pulmonary function (COPD) Each Risk Factor Represents 3 Points: Age 75 years or older Thrombosis Risk Factor Assessment Total Risk Factor Score: 4 Thrombosis Risk Factor Assessment Level: Moderate Risk Assessment and Plan Plan: 1. [facility] Repeat EKG is no acute ST changes. Patient has been cleared by Dr. Butts return to [facility]. Patient denies having any chest pain, shortness of breath, palpitations, lightheadedness. 2. Vascular dementia, stable. 3. Paroxysmal atrial fibrillation. 4. COPD without exacerbation. 5. Hyperlipidemia. 6. Generalized osteoarthritis. 7. History of rheumatoid arthritis. 8. Hypothyroidism. 9. Peptic ulcer disease. 10. Parkinson's disease. 11. Meningioma. No medication changes have been made. Patient placed on the observation unit. Discharge plan: Return to [facility] Discharge Medication List Acetaminophen [Tylenol] 650 mg PO Q4H PRN 02/06/14 [History] FLUoxetine HCL 40 mg PO DAILY 02/06/14 [History] Ferrous Sulfate [Feosol] 325 mg PO DAILY@1700 02/06/14 [History] Ipratropium/Albuterol Sulfate [Duoneb 0.5 mg-3 mg/3 ml Soln] 3 ml INHALATION RT- QID PRN 02/06/14 [History] Multivitamins, Thera [Multivitamin (formulary)] 1 tab PO DAILY@169902/06/14 [History] Propafenone HCl 150 mg PO TID@0800,1400,209902/06/14 [History] Gabapentin [Neurontin] 100 mg PO BID@0800,169902/12/14 [History] Pantoprazole Sodium [Protonix] 40 mg PO DAILY #30 tab 04/19/14 [Rx] Bisacodyl [Dulcolax] 10 mg RECTAL DAILY PRN 01/03/19 [History] Carbidopa-Levodopa 25-100 mg [Sinemet 25-100 mg] 1 tab PO TID@0800,1400,209901/03/19 [History] Cholecalciferol [Vitamin D3 (25 Mcg = 1000 Iu)] 1,000 unit PO DAILY@169901/03/19 [History] Fluticasone Nasal [place] [Flonase Nasal [place]] 1 spray EA NOSTRIL DAILY PRN 01/03/19 [History] Fluticasone Propionate [Flovent Hfa 110 mcg] 1 puff INHALATION RT-BID@0800,169901/03/19 [History] Furosemide [Lasix] 40 mg PO DAILY 01/03/19 [History] HYDROcodone/APAP 5-325MG [[place] 5-325] 1 tab PO HS 01/03/19 [History] HYDROcodone/APAP 5-325MG [[place] 5-325] 1 tab PO Q4HR PRN 01/03/19 [History] L.acidoph,Paracasei, B.lactis [Probiotic] 1 cap PO DAILY@169901/03/19 [History] Loratadine [Claritin] 10 mg PO DAILY 01/03/19 [History] Losartan [Cozaar] 25 mg PO DAILY 01/03/19 [History] Mag Hydrox/Al Hydrox/Simeth [Maalox] 15 ml PO QID PRN 01/03/19 [History] Magnesium Hydroxide [Milk of Magnesia Concentrate] 7,200 mg PO DAILY PRN 01/03/19 [History] Magnesium Oxide [Magox 400] 400 mg PO DAILY@169901/03/19 [History] Na Phos,M-B/Na Phos,Di-Ba [Fleet Adult] 133 ml RECTAL ONCE PRN 01/03/19 [History] Potassium Chloride ER [K-Dur 20] 20 meq PO DAILY 01/03/19 [History] Impression and plan of care have been directed as dictated by the signing physician. Brenda Lopez nurse practitioner acting as scribe for signing physician.
[2019-01-04] MEDS ORDERED: CHOLECALCIFEROL 1,000 UNIT TAB PO SCH (17:00)
[2019-01-04] MEDS ORDERED: NON-FORMULARY DRUG (L.Acidoph,Paracasei, B.Lactis [Probiotic] 1 CAP) PO SCH (17:00)
[2019-01-04] MEDS ORDERED: MULTIVITAMINS, THERA 1 EACH TAB PO SCH (17:00)
[2019-01-04] MEDS ORDERED: MAGNESIUM OXIDE 400 MG TAB PO SCH (17:00)
[2019-01-04] MEDS ORDERED: FERROUS SULFATE 325 MG TAB PO SCH (17:00)
== END 2019-01-04 14:17 ==
LOC: EC 14:38 → 1SOBS 16:06
PROVIDERS: ADMIT Internal Medicine; ATTEND Internal Medicine
DX: R94.31 Abnormal electrocardiogram [ECG] [EKG] (principal); R77.8 Other specified abnormalities of plasma proteins; F01.50 Vascular dementia, unspecified severity, without behavioral disturbance, psychotic disturbance, mood disturbance, and anxiety; I48.0 Paroxysmal atrial fibrillation; J44.9 Chronic obstructive pulmonary disease, unspecified; E78.5 Hyperlipidemia, unspecified; M06.9 Rheumatoid arthritis, unspecified; M15.9 Polyosteoarthritis, unspecified; E03.9 Hypothyroidism, unspecified; E04.1 Nontoxic single thyroid nodule; G20 Parkinson's disease; K27.9 Peptic ulcer, site unspecified, unspecified as acute or chronic, without hemorrhage or perforation; D32.9 Benign neoplasm of meninges, unspecified; I48.92 Unspecified atrial flutter; M51.36 Other intervertebral disc degeneration, lumbar region; N32.81 Overactive bladder; F32.9 Major depressive disorder, single episode, unspecified; G89.29 Other chronic pain; M54.5 Low back pain; N18.2 Chronic kidney disease, stage 2 (mild); K21.9 Gastro-esophageal reflux disease without esophagitis; R32 Unspecified urinary incontinence; Z87.19 Personal history of other diseases of the digestive system; Z86.14 Personal history of Methicillin resistant Staphylococcus aureus infection; Z90.49 Acquired absence of other specified parts of digestive tract; Z99.3 Dependence on wheelchair; Z79.899 Other long term (current) drug therapy; Z79.51 Long term (current) use of inhaled steroids; Z79.891 Long term (current) use of opiate analgesic; Z88.7 Allergy status to serum and vaccine; Z82.49 Family history of ischemic heart disease and other diseases of the circulatory system; Z80.9 Family history of malignant neoplasm, unspecified
CPT/HCPCS: 96360; 96361; 99285; 36415; 94640 ×2; 93005; 80061; 80053; 83735; 84484 ×2; 85025; 85610; 85730; 71046; G0378 ×2

== ENCOUNTER 2019-05-19 18:51 | Inpatient (IN) | payer MEDICARE, OTHER ==
[2019-05-19 19:56] LABS: Basophils # (A) 0.1 k/uL (0-0.2); Basophils % (A) 2 %; Eosinophils % (A) 1 %; HCT 34.3 % (34.0-46.0); Lymphocytes # (A) 0.3 k/uL (1.0-4.8); Lymphocytes % (A) 4 %; MCH 30.4 pg (25.0-35.0); MCV 94.7 fL (80.0-100.0); Monocytes # (A) 0.4 k/uL (0-1.0); Monocytes % (A) 5 %; Neutrophils # (A) 6.1 k/uL (1.3-7.7); Neutrophils % (A) 88 %; Platelet Count 193 k/uL (150-450); RBC 3.62 m/uL (3.80-5.40); RDW 14.4 % (11.5-15.5); WBC 6.9 k/uL (3.8-10.6)
[2019-05-19 19:57] LABS: Albumin 3.8 g/dL (3.5-5.0); Calcium 9.7 mg/dL (8.4-10.2); Total Bilirubin 0.7 mg/dL (0.2-1.3); Total Protein 6.7 g/dL (6.3-8.2)
[2019-05-19 20:00] LABS: Potassium 5.4 mmol/L (3.5-5.1)
[2019-05-19 20:07] LABS: INR 0.9 (<1.2); Prothrombin Time 9.8 sec (9.0-12.0)
[2019-05-19] MEDS ORDERED: SODIUM CHLORIDE 0.9% 1,000 ML IV STA (20:18)
--- NOTE | 2019-05-19 20:23 | XR ---
EXAMINATION TYPE: XR pelvis AP view DATE OF EXAM: 05/19/2019 COMPARISON: None HISTORY: Pain TECHNIQUE: AP pelvis FINDINGS: Femoral heads articulate with the acetabulum. No acute fractures are evident. Normal bowel gas is present. IMPRESSION: 1. Unremarkable AP pelvis
[2019-05-19 20:28] LABS: Partial Thromboplastin Time 19.3 sec (22.0-30.0)
--- NOTE | 2019-05-19 20:32 | ED ---
General Adult HPI - General Chief complaint: Recheck/Abnormal Lab/Rx Stated complaint: Chest Pain Time Seen by Provider: 05/19/19 19:00 Source: EMS, Caregiver Mode of arrival: EMS Limitations: no limitations - History of Present Illness Initial comments: Patient was sent to the [facility] department because she had an elevated troponin, and was hypoxic and tachycardic at her halfway. Patient doesn't answer questions appropriate. She provides no further information. According to EMS, there was a concern for pulmonary embolism. - Related Data Home Medications Medication Instructions Recorded Confirmed Acetaminophen [Tylenol] 650 mg PO Q4H PRN 02/06/14 05/19/19 FLUoxetine HCL 40 mg PO DAILY 02/06/14 05/19/19 Ferrous Sulfate [Feosol] 325 mg PO DAILY@169902/06/14 05/19/19 Ipratropium/Albuterol Sulfate 3 ml INHALATION RT-QID 02/06/14 05/19/19 [Duoneb 0.5 mg-3 mg/3 ml Soln] Multivitamins, Thera [Multivitamin 1 tab PO DAILY@169902/06/14 05/19/19 (formulary)] Propafenone HCl 150 mg PO TID@0800,1400,209902/06/14 05/19/19 Gabapentin [Neurontin] 100 mg PO BID@0800,169902/12/14 05/19/19 Bisacodyl [Dulcolax] 10 mg RECTAL DAILY PRN 01/03/19 05/19/19 Carbidopa-Levodopa 25-100 mg 1 tab PO TID@0800,1400,209901/03/19 05/19/19 [Sinemet 25-100 mg] Cholecalciferol [Vitamin D3 (25 1,000 unit PO DAILY@169901/03/19 05/19/19 Mcg = 1000 Iu)] Fluticasone Nasal [place] [Flonase 1 spray EA NOSTRIL DAILY PRN 01/03/19 05/19/19 Nasal [place]] Fluticasone Propionate [Flovent 1 puff INHALATION RT-BID@0800,1700 01/03/19 05/19/19 Hfa 110 mcg] Furosemide [Lasix] 40 mg PO DAILY 01/03/19 05/19/19 HYDROcodone/APAP 5-325MG [[place] 1 tab PO HS@2100 01/03/19 05/19/19 5-325] HYDROcodone/APAP 5-325MG [[place] 1 tab PO Q4HR PRN 01/03/19 05/19/19 5-325] L.acidoph,Paracasei, B.lactis 1 cap PO DAILY@1700 01/03/19 05/19/19 [Probiotic] Loratadine [Claritin] 10 mg PO DAILY 01/03/19 05/19/19 Losartan [Cozaar] 25 mg PO DAILY 01/03/19 05/19/19 Mag Hydrox/Al Hydrox/Simeth 15 ml PO QID PRN 01/03/19 05/19/19 [Maalox] Magnesium Hydroxide [Milk of 7,200 mg PO DAILY PRN 01/03/19 05/19/19 Magnesia Concentrate] Magnesium Oxide [Magox 400] 400 mg PO DAILY@1700 01/03/19 05/19/19 Na Phos,M-B/Na Phos,Di-Ba [Fleet 133 ml RECTAL DAILY PRN 01/03/19 05/19/19 Adult] Potassium Chloride ER [K-Dur 20] 20 meq PO DAILY 01/03/19 05/19/19 Albuterol Nebulized [Ventolin 2.5 mg INHALATION RT-Q4H PRN 05/19/19 05/19/19 Nebulized] Budesonide [Pulmicort] 0.5 mg INHALATION RT-BID 05/19/19 05/19/19 Ipratropium-Albuterol Nebulize 3 ml INHALATION RT-Q6H PRN 05/19/19 05/19/19 [Duoneb 0.5 mg-3 mg/3 ml Soln] Levofloxacin [Levaquin] 250 mg PO DAILY@1900 05/19/19 05/19/19 Olopatadine HCl [[place]] 1 drop BOTH EYES DAILY 05/19/19 05/19/19 guaiFENesin [Mucinex] 600 mg PO Q12H 05/19/19 05/19/19 Previous Rx's Medication Instructions Recorded Pantoprazole Sodium [Protonix] 40 mg PO DAILY #30 tab 04/19/14 Allergies Allergy/AdvReac Type Severity Reaction Status Date / Time pneumococcal vaccine Allergy Rash/Hives Verified 05/19/19 19:50 Review of Systems ROS Statement: Those systems with pertinent positive or pertinent negative responses have been documented in the HPI. ROS Other: All systems not noted in ROS Statement are negative. Past Medical History Past Medical History: Atrial Fibrillation, Atrial Flutter, COPD, Dementia, GERD/Reflux, GI Bleed, Hyperlipidemia, Memory Impairment, Osteoarthritis (OA), Rheumatoid Arthritis (RA), Thyroid Disorder Additional Past Medical History / Comment(s): A. fib/A flutter, COPD, hyperlipidemia, vascular dementia, osteoarthritis, RA, overactive bladder, Parkinson disease, depression, chronic kidney disease stage II, left thyroid nodule, meningioma,. chronic low back pain status post recent L5-S1 discectomy with removal of epidural mass. Last Myocardial Infarction Date:: I thyroid left nodule diagnosed October 2012 suspected goiter, meningioma History of Any Multi-Drug Resistant Organisms: MRSA Date of last positivie culture/infection: 2012 MDRO Source:: unknown Past Surgical History: Appendectomy, Back Surgery, Cholecystectomy, Hysterectomy, Orthopedic Surgery Additional Past Surgical History / Comment(s): multiple leg surgeries, bladder prolapse surgery, bilateral total knee arthroplasty, lumbar laminectomy L5-S1 discectomy with epidural mass resection 02/17/[address] Cosby, appendectomy,. cholecystectomy, hysterectomy orthopedic surgery. Past Anesthesia/Blood Transfusion Reactions: No Reported Reaction Past Psychological History: No Psychological Hx Reported, Anxiety, Depression Smoking Status: Never smoker Past Alcohol Use History: None Reported Past Drug Use History: None Reported - Past Family History Father Family Medical History: Myocardial Infarction ([place]) Mother Family Medical History: Cancer Sister(s) Family Medical History: Myocardial Infarction ([place]) Daughter(s) Family Medical History: No Reported History General Exam Limitations: altered mental status General appearance: obtunded Head exam: Present: atraumatic Eye exam: Present: normal appearance Pupils: Present: normal accommodation ENT exam: Present: normal exam Neck exam: Present: normal inspection Respiratory exam: Present: normal lung sounds bilaterally Cardiovascular Exam: Present: regular rate, tachycardia GI/Abdominal exam: Present: soft. Absent: tenderness Extremities exam: Present: normal inspection. Absent: tenderness Neurological exam: Present: altered Psychiatric exam: Present: normal affect Skin exam: Present: warm, dry Course Vital Signs 05/19/19 19:19 Pulse Rate 101 H Respiratory 20 Rate Blood Pressure 127/86 O2 Sat by Pulse 96 Oximetry EKG Findings - EKG Comments: EKG Findings:: Twelve-lead EKG shows ventricular 103 bpm, normal AR interval and QRS complex is, no ST elevation or depression, interpreted by me as sinus tachycardia. Medical Decision Making - Medical Decision Making Workup reveals a multifocal pneumonia. I ordered antibiotics for healthcare associated pneumonia. I ordered an echocardiogram. I will consult cardiology and pulmonology. Patient will be admitted to the hospital. - Lab Data Result diagrams: 05/19/19 19:25 05/19/19 19:25 Lab Results 05/19/19 05/19/19 05/19/19 Range/Units 19:25 19:25 19:25 WBC 6.9 (3.8-10.6) k/uL RBC 3.62 L (3.80-5.40) m/uL Hgb 11.0 L (11.4-16.0) gm/dL Hct 34.3 (34.0-46.0) % MCV 94.7 (80.0-100.0) fL MCH 30.4 (25.0-35.0) pg MCHC 32.0 (31.0-37.0) g/dL RDW 14.4 (11.5-15.5) % Plt Count 193 (150-450) k/uL Neutrophils % 88 % Lymphocytes % 4 % Monocytes % 5 % Eosinophils % 1 % Basophils % 2 % Neutrophils # 6.1 (1.3-7.7) k/uL Lymphocytes # 0.3 L (1.0-4.8) k/uL Monocytes # 0.4 (0-1.0) k/uL Eosinophils # 0.0 (0-0.7) k/uL Basophils # 0.1 (0-0.2) k/uL PT (9.0-12.0) sec INR (<1.2) APTT (22.0-30.0) sec Sodium 137 (137-145) mmol/L Potassium 5.4 H (3.5-5.1) mmol/L Chloride 100 (98-107) mmol/L Carbon Dioxide 29 (22-30) mmol/L Anion Gap 8 mmol/L BUN 48 H (7-17) mg/dL Creatinine 1.35 H (0.52-1.04) mg/dL Est GFR (CKD-EPI)AfAm 42 (>60 ml/min/1.73 sqM) Est GFR (CKD-EPI)NonAf 37 (>60 ml/min/1.73 sqM) Glucose 119 H (74-99) mg/dL Calcium 9.7 (8.4-10.2) mg/dL Magnesium 2.0 (1.6-2.3) mg/dL Total Bilirubin 0.7 (0.2-1.3) mg/dL AST 33 (14-36) U/L ALT 16 (9-52) U/L Alkaline Phosphatase 60 (38-126) U/L Troponin I (0.000-0.034) ng/mL NT-Pro-B Natriuret Pep 63050 pg/mL Total Protein 6.7 (6.3-8.2) g/dL Albumin 3.8 (3.5-5.0) g/dL 05/19/19 05/19/19 Range/Units 19:25 19:25 WBC (3.8-10.6) k/uL RBC (3.80-5.40) m/uL Hgb (11.4-16.0) gm/dL Hct (34.0-46.0) % MCV (80.0-100.0) fL MCH (25.0-35.0) pg MCHC (31.0-37.0) g/dL RDW (11.5-15.5) % Plt Count (150-450) k/uL Neutrophils % % Lymphocytes % % Monocytes % % Eosinophils % % Basophils % % Neutrophils # (1.3-7.7) k/uL Lymphocytes # (1.0-4.8) k/uL Monocytes # (0-1.0) k/uL Eosinophils # (0-0.7) k/uL Basophils # (0-0.2) k/uL PT 9.8 (9.0-12.0) sec INR 0.9 (<1.2) APTT 19.3 L (22.0-30.0) sec Sodium (137-145) mmol/L Potassium (3.5-5.1) mmol/L Chloride (98-107) mmol/L Carbon Dioxide (22-30) mmol/L Anion Gap mmol/L BUN (7-17) mg/dL Creatinine (0.52-1.04) mg/dL Est GFR (CKD-EPI)AfAm (>60 ml/min/1.73 sqM) Est GFR (CKD-EPI)NonAf (>60 ml/min/1.73 sqM) Glucose (74-99) mg/dL Calcium (8.4-10.2) mg/dL Magnesium (1.6-2.3) mg/dL Total Bilirubin (0.2-1.3) mg/dL AST (14-36) U/L ALT (9-52) U/L Alkaline Phosphatase (38-126) U/L Troponin I 0.091 H* (0.000-0.034) ng/mL NT-Pro-B Natriuret Pep pg/mL Total Protein (6.3-8.2) g/dL Albumin (3.5-5.0) g/dL Disposition Clinical Impression: Pneumonia Disposition: ADMITTED IP TO THIS [facility] Condition: Serious Referrals: Maico Rolle MD [Primary Care Provider] - 1-2 days
--- NOTE | 2019-05-19 21:08 | CT ---
EXAMINATION TYPE: CT angio chest DATE OF EXAM: 05/19/2019 8:53 PM COMPARISON: 10/29/2012 HISTORY: Dyspnea. CT DLP: 507.3 mGycm Automated exposure control for dose reduction was used. CONTRAST: CTA scan of the thorax is performed with IV Contrast, patient injected with 79ml mL of Isovue 370, pu lmonary embolism protocol. . There are 3-D post processed images. FINDINGS: There is some patchy infiltrate and atelectasis in the upper and lower lobes bilaterally. There is so me right lower lobe bronchiectasis. Heart is enlarged. There is no pericardial effusion. There are sm all bilateral pleural effusions. There are large pulmonary arteries consistent with pulmonary hypertension. I see no filling defects. Thoracic aorta is atheromatous. There is no evidence of aneurysm or dissection. Ascending aorta measu res 3.6 cm. There is hypertrophic spurring in the thoracic spine. I see no bony destructive process. There is significant asymmetric enlargement of the left thyroid lobe that measures 7 x 4.5 cm. IMPRESSION: THERE IS NO EVIDENCE OF PULMONARY EMBOLISM. PATCHY INFILTRATE AND ATELECTASIS IN THE UPPER AND LOWER LOBES BILATERALLY THAT IS INCREASED COMPARED TO OLD EXAM. THERE IS SOME DEGREE OF PULMONARY INTERSTITIAL FIBROSIS. SMALL PLEURAL EFFUSIONS UNCHAN GED. BRONCHIECTASIS RIGHT LOWER LOBE. 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 THIS APPEARS INCREASED ZARI RED TO OLD CT SCAN.
[2019-05-19] MEDS ORDERED: LEVOFLOXACIN 750MG-D5W PMX 750 MG in DEXTROSE/WATER 1 150ML.BAG IVPB STA (21:09)
[2019-05-19] MEDS ORDERED: TEMAZEPAM 15 MG CAP PO PRN (21:11)
[2019-05-19] MEDS ORDERED: ONDANSETRON 4 MG/2 ML VIAL IVP PRN (21:11)
[2019-05-19] MEDS ORDERED: NALOXONE 0.4 MG/ML 1 ML VIAL IV PRN (21:11)
[2019-05-19] MEDS ORDERED: IPRATROPIUM-ALBUTEROL 3 ML NEB INHALATION PRN (21:13)
[2019-05-19] MEDS ORDERED: BISACODYL 10 MG SUPP RECTAL PRN (21:13)
[2019-05-19] MEDS ORDERED: ALBUTEROL NEBULIZED 2.5 MG/3 ML INHALATION PRN (21:13)
[2019-05-20 00:03] VITALS: BMI 32.2
[2019-05-20] MEDS: PIPERACILLIN-TAZOBACTAM 3.375 GM in SODIUM CHLORIDE 0.9% 100 ML IVPB SCH ×4 (01:50→16:22)
[2019-05-20 04:54] LABS: Appearance,Urine Clear (Clear); Bilirubin,Urine Negative (Negative); Blood,Urine Negative (Negative); Color,Urine Yellow; Glucose,Urine (UA) Negative (Negative); Ketones,Urine Negative (Negative); Leukocyte Esterase,Urine Negative (Negative); Nitrite,Urine Negative (Negative); Protein,Urine Negative (Negative); Specific Gravity,Urine 1.038 (1.001-1.035); Urobilinogen,Urine <2.0 mg/dL (<2.0)
[2019-05-20] MEDS: PANTOPRAZOLE 40 MG TABLET PO SCH (07:03)
[2019-05-20] MEDS: MORPHINE SULFATE 4 MG/ML SYRINGE IV PRN (07:06)
[2019-05-20] MEDS: IPRATROPIUM-ALBUTEROL 3 ML NEB INHALATION SCH ×4 (07:53→19:54)
[2019-05-20] MEDS: BUDESONIDE 0.5 MG/2 ML NEBU INHALATION SCH ×2 (07:53→19:54)
[2019-05-20] MEDS ORDERED: FLUTICASONE 110 MCG INHALER INHALATION SCH (08:00)
[2019-05-20] MEDS ORDERED: PROPAFENONE 150 MG TAB PO SCH (08:00)
[2019-05-20] MEDS ORDERED: FUROSEMIDE 40 MG TAB PO SCH (09:00)
[2019-05-20] MEDS ORDERED: HEPARIN SODIUM,PORCINE 5,000 UNIT/ML 1 ML VIAL SQ SCH (09:00)
[2019-05-20] MEDS: FLUoxetine HCL 20 MG CAP PO SCH (10:03)
[2019-05-20] MEDS: POTASSIUM CHLORIDE ER 20 MEQ TAB.ER PO SCH (10:03)
[2019-05-20] MEDS: GABAPENTIN 100 MG CAP PO SCH ×2 (10:03→16:23)
[2019-05-20] MEDS: LOSARTAN 25 MG TAB PO SCH (10:03)
[2019-05-20] MEDS: KETOTIFEN 0.025% OPHTH DROPS 5 ML BTL BOTH EYES SCH ×2 (10:03→20:40)
[2019-05-20] MEDS: CARBIDOPA-LEVODOPA 25-100 MG 1 EACH TAB PO SCH ×3 (10:03→20:35)
--- NOTE | 2019-05-20 15:06 | P.HPIM ---
History of Present Illness H&P Date: 05/20/19 This is an 83-year-old female patient of Dr. Rolle, long-term resident at [facility] with past medical history of vascular dementia, paroxysmal atrial fibrillation, hyperlipidemia, chronic obstructive pulmonary disease, osteoarthritis, rheumatoid arthritis, thyroid disorder, peptic ulcer disease, Parkinson disease, meningioma, DDD status post lumbar discectomy. Patient had elevated troponin, hypoxic and tachycardia and concern for pulmonary embolism at [facility] and patient was sent to [facility] for evaluation. Heart rate was 101, pulse ox 96% on room air, WBC 6.9, hemoglobin 11, BUN 48 creatinine 1.35 potassium 5.4, blood sugar 119. ProBNP 19,000. Troponin 0.091. Pelvic x-ray showed no acute abdomen illness. CAT scan angiogram of the chest showed no evidence of pulmonary embolism. Patchy infiltrate and atelectasis in the upper and lower lobes bilaterally that are increased. Interstitial fibrosis. Small pleural effusions unchanged. Bronchiectasis right lower lobe. Markedly enlarged left thyroid lobe consistent with multinodular goiter appears increased CAT SCAN. Patient is denying any chest pain or abdominal pain. She is a poor historian. She is pleasantly confused. Consult with Dr. Lewis and also consult with cardiology regarding elevated troponins. Echocardiogram has been ordered and barium swallow. Patient has been residing at [facility] for the past 4 years. She is wheelchair bound. She has a chronic cough and history of frequent urinary tract infections. Review of Systems Constitutional: Denies chills, Denies fatigue, Denies fever, Denies poor appetite, Denies weight loss Eyes: denies blurred vision, denies pain Ears, nose, mouth and throat: Denies dental pain, Denies headache, Denies nasal congestion, Denies nasal discharge, Denies sore throat, Denies vertigo Cardiovascular: Denies chest pain, Denies dyspnea on exertion, Denies edema, Denies leg edema, Denies shortness of breath, Denies syncope Respiratory: Denies congestion, Denies cough, Denies cough with sputum, Denies dyspnea, Denies excessive sputum, Denies hemoptysis, Denies wheezing Gastrointestinal: Denies abdominal pain, Denies diarrhea, Denies loss of appetite, Denies nausea, Denies vomiting Genitourinary: Denies dysuria, Denies hematuria Musculoskeletal: Reports gait dysfunction, Reports muscle weakness, Denies myalgias Integumentary: Denies pruritus, Denies rash, Denies wounds Neurological: Denies change in mentation, Denies change in speech, Denies numbness, Denies seizures, Denies weakness Psychiatric: Denies anxiety, Denies depression Endocrine: Denies fatigue, Denies weight change Past Medical History Past Medical History: Atrial Fibrillation, Atrial Flutter, COPD, Dementia, GERD/ Reflux, GI Bleed, Hyperlipidemia, Memory Impairment, Osteoarthritis (OA), Rheumatoid Arthritis (RA), Thyroid Disorder Additional Past Medical History / Comment(s): A. fib/A flutter, COPD, hyperlipidemia, vascular dementia, osteoarthritis, RA, overactive bladder, Parkinson disease, depression, chronic kidney disease stage II, left thyroid nodule, meningioma,. chronic low back pain status post recent L5-S1 discectomy with removal of epidural mass. Last Myocardial Infarction Date:: I thyroid left nodule diagnosed October 2012 suspected goiter, meningioma History of Any Multi-Drug Resistant Organisms: MRSA Date of last positivie culture/infection: 2012 MDRO Source:: unknown Past Surgical History: Appendectomy, Back Surgery, Cholecystectomy, Hys terectomy, Orthopedic Surgery Additional Past Surgical History / Comment(s): multiple leg surgeries, bladder prolapse surgery, bilateral total knee arthroplasty, lumbar laminectomy L5-S1 discectomy with epidural mass resection 02/17/[address] Cosby, appendectomy,. cholecystectomy, hysterectomy orthopedic surgery. Past Anesthesia/Blood Transfusion Reactions: No Reported Reaction Past Psychological History: No Psychological Hx Reported, Anxiety, Depression Smoking Status: Never smoker Past Alcohol Use History: None Reported Additional Past Alcohol Use History / Comment(s): Patient currently resides at [facility] for 4 years. She is wheelchair bound. Past Drug Use History: None Reported - Past Family History Father Family Medical History: Myocardial Infarction (SD) Mother Family Medical History: Cancer Sister(s) Family Medical History: Myocardial Infarction (SD) Daughter(s) Family Medical History: No Reported History Medications and Allergies Home Medications Medication Instructions Recorded Confirmed Type Acetaminophen [Tylenol] 650 mg PO Q4H PRN 02/06/14 05/19/19 History FLUoxetine HCL 40 mg PO DAILY 02/06/14 05/19/19 History Ferrous Sulfate [Feosol] 325 mg PO DAILY@1700 02/06/14 05/19/19 History Ipratropium/Albuterol Sulfate 3 ml INHALATION RT-QID 02/06/14 05/19/19 History [Duoneb 0.5 mg-3 mg/3 ml Soln] Multivitamins, Thera [Multivitamin 1 tab PO DAILY@169902/06/14 05/19/19 History (formulary)] Propafenone HCl 150 mg PO TID@0800,1400,209902/06/14 05/19/19 History Gabapentin [Neurontin] 100 mg PO BID@0800,169902/12/14 05/19/19 History Pantoprazole Sodium [Protonix] 40 mg PO DAILY #30 tab 04/19/14 05/19/19 Rx Bisacodyl [Dulcolax] 10 mg RECTAL DAILY PRN 01/03/19 05/19/19 History Carbidopa-Levodopa 25-100 mg 1 tab PO TID@0800,1400,209901/03/19 05/19/19 History [Sinemet 25-100 mg] Cholecalciferol [Vitamin D3 (25 1,000 unit PO DAILY@169901/03/19 05/19/19 History Mcg = 1000 Iu)] Fluticasone Nasal [place] [Flonase 1 spray EA NOSTRIL DAILY PRN 01/03/19 05/19/19 History Nasal [place]] Fluticasone Propionate [Flovent 1 puff INHALATION RT-BID@0800,169901/03/19 05/19/19 History Hfa 110 mcg] Furosemide [Lasix] 40 mg PO DAILY 01/03/19 05/19/19 History HYDROcodone/APAP 5-325MG [[place] 1 tab PO HS@209901/03/19 05/19/19 History 5-325] HYDROcodone/APAP 5-325MG [[place] 1 tab PO Q4HR PRN 01/03/19 05/19/19 History 5-325] L.acidoph,Paracasei, B.lactis 1 cap PO DAILY@169901/03/19 05/19/19 History [Probiotic] Loratadine [Claritin] 10 mg PO DAILY 01/03/19 05/19/19 History Losartan [Cozaar] 25 mg PO DAILY 01/03/19 05/19/19 History Mag Hydrox/Al Hydrox/Simeth 15 ml PO QID PRN 01/03/19 05/19/19 History [Maalox] Magnesium Hydroxide [Milk of 7,200 mg PO DAILY PRN 01/03/19 05/19/19 History Magnesia Concentrate] Magnesium Oxide [Magox 400] 400 mg PO DAILY@1700 01/03/19 05/19/19 History Na Phos,M-B/Na Phos,Di-Ba [Fleet 133 ml RECTAL DAILY PRN 01/03/19 05/19/19 History Adult] Potassium Chloride ER [K-Dur 20] 20 meq PO DAILY 01/03/19 05/19/19 History Albuterol Nebulized [Ventolin 2.5 mg INHALATION RT-Q4H PRN 05/19/19 05/19/19 History Nebulized] Budesonide [Pulmicort] 0.5 mg INHALATION RT-BID 05/19/19 05/19/19 History Ipratropium-Albuterol Nebulize 3 ml INHALATION RT-Q6H PRN 05/19/19 05/19/19 History [Duoneb 0.5 mg-3 mg/3 ml Soln] Levofloxacin [Levaquin] 250 mg PO DAILY@1900 05/19/19 05/19/19 History Olopatadine HCl [Pataday] 1 drop BOTH EYES DAILY 05/19/19 05/19/19 History guaiFENesin [Mucinex] 600 mg PO Q12H 05/19/19 05/19/19 History Allergies Allergy/AdvReac Type Severity Reaction Status Date / Time pneumococcal vaccine Allergy Rash/Hives Verified 05/19/19 19:50 Physical Exam Vitals: Vital Signs Temp Pulse Pulse Resp BP BP Pulse Ox 05/20/19 12:02 86 05/20/19 11:55 84 05/20/19 10:49 97 05/20/19 09:17 80 05/20/19 08:50 97.4 F L 26 H 136/71 100 05/20/19 08:06 82 05/20/19 07:52 76 05/20/19 03:49 97.4 F L 80 18 142/67 98 05/20/19 01:30 97.8 F 96 17 144/74 99 05/19/19 23:54 98.1 F 78 18 163/97 93 L 05/19/19 21:12 98.1 F 105 H 18 133/89 99 05/19/19 19:19 101 H 20 127/86 96 Intake and Output 05/19/19 05/20/19 05/20/19 22:59 06:59 14:59 Intake Total 20 Output Total 500 Balance -500 20 Intake: Oral 20 Output: Urine 500 Straight 500 Other: Voiding Method Bedpan Bedpan Diaper Diaper Incontinent Weight 90.628 kg 88 kg General appearance: Obese, no distress - EENT Eyes: Reports EOMI, Reports PERRLA, Denies photophobia ENT: Reports hard of hearing, Reports NA/AT, Reports normal oropharynx, Denies thrush Ears: bilateral: normal - Neck Neck: Reports normal ROM, Denies lymphadenopathy, Denies stridor, Denies thyromegaly Carotids: bilateral: upstroke delayed Thyroid: bilateral: enlarged - Respiratory Respiratory: bilateral: diminished, negative: dullness, rales, rhonchi, wheezing, prolonged expiration, prolonged inspiration - Cardiovascular Rhythm: regular Heart sounds: normal: S1, S2 Abnormal Heart Sounds: Reports systolic murmur (Systolic ejection murmur 2/6 located in the left sternal border), Reports S3 Gallop, Denies rub, Denies S4 Gallop, 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 - Gastrointestinal General gastrointestinal: Reports normal bowel sounds, nondistended, Reports soft, no tenderness, Denies hepatomegaly, Denies organomegaly, Denies rigid, Denies scaphoid, Denies splenomegaly, Denies umbilical hernia, Denies ventral hernia - Integumentary Integumentary: Normal - Neurologic Neurologic: CNII-XII intact - Musculoskeletal Musculoskeletal: Reports generalized weakness, Reports left sided weakness, deformity of the left foot - Psychiatric Psychiatric: Reports A&O x's 2, noted short-term memory deficits, Reports appropriate affect, Reports intact judgment & insight Results CBC & Chem 7: 05/19/19 19:25 05/19/19 19:25 Labs: Abnormal Lab Results - Last 24 Hours (Table) 05/19/19 05/19/19 05/19/19 Range/Units 19:25 19:25 19:25 RBC 3.62 L (3.80-5.40) m/uL Hgb 11.0 L (11.4-16.0) gm/dL Lymphocytes # 0.3 L (1.0-4.8) k/uL APTT 19.3 L (22.0-30.0) sec Potassium 5.4 H (3.5-5.1) mmol/L BUN 48 H (7-17) mg/dL Creatinine 1.35 H (0.52-1.04) mg/dL Glucose 119 H (74-99) mg/dL Troponin I (0.000-0.034) ng/mL Ur Specific [place] (1.001-1.035) 05/19/19 05/20/19 05/20/19 Range/Units 19:25 01:56 04:30 RBC (3.80-5.40) m/uL Hgb (11.4-16.0) gm/dL Lymphocytes # (1.0-4.8) k/uL APTT (22.0-30.0) sec Potassium (3.5-5.1) mmol/L BUN (7-17) mg/dL Creatinine (0.52-1.04) mg/dL Glucose (74-99) mg/dL Troponin I 0.091 H* 0.077 H* (0.000-0.034) ng/mL Ur Specific [place] 1.038 H (1.001-1.035) 05/20/19 Range/Units 07:15 RBC (3.80-5.40) m/uL Hgb (11.4-16.0) gm/dL Lymphocytes # (1.0-4.8) k/uL APTT (22.0-30.0) sec Potassium (3.5-5.1) mmol/L BUN (7-17) mg/dL Creatinine (0.52-1.04) mg/dL Glucose (74-99) mg/dL Troponin I 0.071 H* (0.000-0.034) ng/mL Ur Specific [place] (1.001-1.035) Thrombosis Risk Factor Assmnt - DVT/VTE Prophylaxis DVT/VTE Prophylaxis: Pharmacologic Prophylaxis ordered - Choose All That Apply Any of the Below Risk Factors Present?: Yes Each Factor Represents 1 point: Medical pt on bed rest, Obesity (BMI >25) Other Risk Factors: Yes Each Risk Factor Represents 3 Points: Age 75 years or older Thrombosis Risk Factor Assessment Total Risk Factor Score: 5 Thrombosis Risk Factor Assessment Level: High Risk Assessment and Plan Plan: 1. Abnormal troponins, hypoxia and tachycardia at the care home. Patient denies having any chest pain. Cardiology consult appreciated. Troponins are elevated and appear to be flat. Echocardiogram has been ordered. TSH normal. No clear signs of infection. Pro-calcitonin has been added by Dr. Lewis. If this is negative, Zosyn will be discontinued. 2. Acute kidney injury with elevated creatinine. Avoid nephrotoxic agents. 3. Vascular dementia, stable. 4. Paroxysmal atrial fibrillation. Propafenone 150 mg 3 times daily. 5. COPD without exacerbation. Continue DuoNeb treatments, Pulmicort 0.5 mg twice daily. Pulmonary consult appreciated. 6. Hypertension. Continue losartan 25 mg daily, Lasix 40 mg daily. 7. Hyperlipidemia. 8. Generalized osteoarthritis. 9. History of rheumatoid arthritis. 10. Hypothyroidism with large goiter, stable. 11. Peptic ulcer disease. 12. Parkinson's disease. Continue Sinemet 3 times daily, gabapentin 100 mg twice daily. 13. Meningioma. Discharge plan: Return to [facility] Patient will be admitted to the hospital for a minimum of 2 nights day. Impression and plan of care have been directed as dictated by the signing physician. Brenda Lopez nurse practitioner acting as scribe for signing physician.
--- NOTE | 2019-05-20 15:13 | P.CRDCN ---
History of Present Illness Consult date: 05/20/19 Reason for Consult (text): abnormal troponin Chief complaint: productive cough History of present illness: this is an 83-year-old female who is a long-term resident at [facility], past medical history significant for vascular dementia, paroxysmal atrial fibrillation, hyperlipidemia, COPD, osteoarthritis, rheumatoid arthritis, thyroid disorder, peptic ulcer disease, Parkinson's, degenerative joint disease, was recently treated as an outpatient for pneumonia and presented to the hospital with symptoms of shortness of breath with associated fever and productive cough. She again demonstrates and pneumonia onthis admission. The CT of the chest did not reveal evidence for pulmonary embolism, it did show pat denny infiltrate and atelectasis in the upper and lower lobes bilaterally which has increased as compared with prior exam. Patient denies any point in time having any discomfort in her chest.blood pressure this morning 136/70 with a heart rate in the 80s.White blood cell count 6.9, hemoglobin 11, platelet count 193, sodium 137, potassium 5.4, BUN 48 and creatinine 1.3.troponins 0.09, 0.07, 0.07. TSH 2.4, BNP level 19,000. Cardiology consultation was requested because of abnormality in troponin.the patient's troponin does not demonstrate any significant rise or fall pattern to suggest acute coronary syndrome. Could be secondary to infection from pneumonia.We will request an echocardiogram with Doppler study be performed. We will also discontinue the by mouth Lasix and give the patient a dose of IV Lasix.on review of the rhythm strips, it appears that the patient does have an atrial tachycardia and possible intermittent atrial fibrillation. We will start the patient on a beta ayo at 25 mg one tablet by mouth twice a day, we also recommend anticoagulation and will initiate the patient on Eliquis 2-1/2 mg one tablet by mouth twice a day. Past Medical History Past Medical History: Atrial Fibrillation, Atrial Flutter, COPD, Dementia, GERD/Reflux, GI Bleed, Hyperlipidemia, Memory Impairment, Osteoarthritis (OA), Rheumatoid Arthritis (RA), Thyroid Disorder Additional Past Medical History / Comment(s): A. fib/A flutter, COPD, hyperlipidemia, vascular dementia, osteoarthritis, RA, overactive bladder, Parkinson disease, depression, chronic kidney disease stage II, left thyroid nodule, meningioma,. chronic low back pain status post recent L5-S1 discectomy with removal of epidural mass. Last Myocardial Infarction Date:: I thyroid left nodule diagnosed October 2012 suspected goiter, meningioma History of Any Multi-Drug Resistant Organisms: MRSA Date of last positivie culture/infection: 2012 MDRO Source:: unknown Past Surgical History: Appendectomy, Back Surgery, Cholecystectomy, Hyst erectomy, Orthopedic Surgery Additional Past Surgical History / Comment(s): multiple leg surgeries, bladder prolapse surgery, bilateral total knee arthroplasty, lumbar laminectomy L5-S1 discectomy with epidural mass resection 02/17/[address] Cosby, appendectomy,. cholecystectomy, hysterectomy orthopedic surgery. Past Anesthesia/Blood Transfusion Reactions: No Reported Reaction Past Psychological History: No Psychological Hx Reported, Anxiety, Depression Smoking Status: Never smoker Past Alcohol Use History: None Reported Additional Past Alcohol Use History / Comment(s): Patient currently resides at [facility] for 4 years. She is wheelchair bound. Past Drug Use History: None Reported - Past Family History Father Family Medical History: Myocardial Infarction ([place]) Mother Family Medical History: Cancer Sister(s) Family Medical History: Myocardial Infarction ([place]) Daughter(s) Family Medical History: No Reported History Medications and Allergies Home Medications Medication Instructions Recorded Confirmed Type Acetaminophen [Tylenol] 650 mg PO Q4H PRN 02/06/14 05/19/19 History FLUoxetine HCL 40 mg PO DAILY 02/06/14 05/19/19 History Ferrous Sulfate [Feosol] 325 mg PO DAILY@1700 02/06/14 05/19/19 History Ipratropium/Albuterol Sulfate 3 ml INHALATION RT-QID 02/06/14 05/19/19 History [Duoneb 0.5 mg-3 mg/3 ml Soln] Multivitamins, Thera [Multivitamin 1 tab PO DAILY@1700 02/06/14 05/19/19 History (formulary)] Propafenone HCl 150 mg PO TID@0800,1400,2100 02/06/14 05/19/19 History Gabapentin [Neurontin] 100 mg PO BID@0800,1700 02/12/14 05/19/19 History Pantoprazole Sodium [Protonix] 40 mg PO DAILY #30 tab 04/19/14 05/19/19 Rx Bisacodyl [Dulcolax] 10 mg RECTAL DAILY PRN 01/03/19 05/19/19 History Carbidopa-Levodopa 25-100 mg 1 tab PO TID@0800,1400,2100 01/03/19 05/19/19 History [Sinemet 25-100 mg] Cholecalciferol [Vitamin D3 (25 1,000 unit PO DAILY@169901/03/19 05/19/19 History Mcg = 1000 Iu)] Fluticasone Nasal [place] [Flonase 1 spray EA NOSTRIL DAILY PRN 01/03/19 05/19/19 History Nasal [place]] Fluticasone Propionate [Flovent 1 puff INHALATION RT-BID@0800,0 01/03/19 05/19/19 History Hfa 110 mcg] Furosemide [Lasix] 40 mg PO DAILY 01/03/19 05/19/19 History HYDROcodone/APAP 5-325MG [[place] 1 tab PO HS@209901/03/19 05/19/19 History 5-325] HYDROcodone/APAP 5-325MG [[place] 1 tab PO Q4HR PRN 01/03/19 05/19/19 History 5-325] L.acidoph,Paracasei, B.lactis 1 cap PO DAILY@169901/03/19 05/19/19 History [Probiotic] Loratadine [Claritin] 10 mg PO DAILY 01/03/19 05/19/19 History Losartan [Cozaar] 25 mg PO DAILY 01/03/19 05/19/19 History Mag Hydrox/Al Hydrox/Simeth 15 ml PO QID PRN 01/03/19 05/19/19 History [Maalox] Magnesium Hydroxide [Milk of 7,200 mg PO DAILY PRN 01/03/19 05/19/19 History Magnesia Concentrate] Magnesium Oxide [Magox 400] 400 mg PO DAILY@169901/03/19 05/19/19 History Na Phos,M-B/Na Phos,Di-Ba [Fleet 133 ml RECTAL DAILY PRN 01/03/19 05/19/19 History Adult] Potassium Chloride ER [K-Dur 20] 20 meq PO DAILY 01/03/19 05/19/19 History Albuterol Nebulized [Ventolin 2.5 mg INHALATION RT-Q4H PRN 05/19/19 05/19/19 History Nebulized] Budesonide [Pulmicort] 0.5 mg INHALATION RT-BID 05/19/19 05/19/19 History Ipratropium-Albuterol Nebulize 3 ml INHALATION RT-Q6H PRN 05/19/19 05/19/19 History [Duoneb 0.5 mg-3 mg/3 ml Soln] Levofloxacin [Levaquin] 250 mg PO DAILY@1900 05/19/19 05/19/19 History Olopatadine HCl [Pataday] 1 drop BOTH EYES DAILY 05/19/19 05/19/19 History guaiFENesin [Mucinex] 600 mg PO Q12H 05/19/19 05/19/19 History Allergies Allergy/AdvReac Type Severity Reaction Status Date / Time pneumococcal vaccine Allergy Rash/Hives Verified 05/19/19 19:50 Physical Exam Vitals: Vital Signs Temp Pulse Pulse Resp BP BP Pulse Ox 05/20/19 12:55 97 F L 96 24 209/99 95 05/20/19 12:40 97 05/20/19 12:02 86 05/20/19 11:55 84 05/20/19 10:49 97 05/20/19 09:17 80 05/20/19 08:50 97.4 F L 26 H 136/71 100 05/20/19 08:06 82 05/20/19 07:52 76 05/20/19 03:49 97.4 F L 80 18 142/67 98 05/20/19 01:30 97.8 F 96 17 144/74 99 05/19/19 23:54 98.1 F 78 18 163/97 93 L 05/19/19 21:12 98.1 F 105 H 18 133/89 99 05/19/19 19:19 101 H 20 127/86 96 Intake and Output 05/20/19 05/20/19 05/20/19 06:59 14:59 22:59 Intake Total 20 Output Total 500 Balance -500 20 Intake: Oral 20 Output: Urine 500 Straight 500 Other: Voiding Method Bedpan Bedpan Diaper Diaper Incontinent # Voids 0 Weight 88 kg PHYSICAL EXAMINATION: GENERAL:83-year-old female in no acute distress at the time of my examination HEENT: Head is atraumatic, normocephalic. Pupils equal, round. Sclera anicteric. Conjunctiva are clear. Mucous membranes of the mouth are moist. Neck is supple. There is no elevated jugular venous pressure. no carotid bruit is heard. HEART EXAMINATION: heart S1 S2 1 systolic ejection murmur is heard CHEST EXAMINATION:[ Lungs are clear With diminished air entry bilaterally to the bases, crackles heard bilaterally..] ABDOMEN: [ Soft, nontender. Bowel sounds are heard. No organomegaly noted]. EXTREMITIES:[ 2+ peripheral pulses with no evidence of peripheral edema and no calf tenderness noted]. NEUROLOGIC [patient is awake, alert and oriented X2.] . Results 05/19/19 19:25 05/19/19 19:25 Cardiac Enzymes 05/19/19 05/19/19 05/20/19 Range/Units 19:25 19:25 01:56 AST 33 (14-36) U/L Troponin I 0.091 H* 0.077 H* (0.000-0.034) ng/mL 05/20/19 Range/Units 07:15 AST (14-36) U/L Troponin I 0.071 H* (0.000-0.034) ng/mL Coagulation 05/19/19 Range/Units 19:25 PT 9.8 (9.0-12.0) sec APTT 19.3 L (22.0-30.0) sec CBC 05/19/19 Range/Units 19:25 WBC 6.9 (3.8-10.6) k/uL RBC 3.62 L (3.80-5.40) m/uL Hgb 11.0 L (11.4-16.0) gm/dL Hct 34.3 (34.0-46.0) % Plt Count 193 (150-450) k/uL Comprehensive Metabolic Panel 05/19/19 Range/Units 19:25 Sodium 137 (137-145) mmol/L Potassium 5.4 H (3.5-5.1) mmol/L Chloride 100 (98-107) mmol/L Carbon Dioxide 29 (22-30) mmol/L BUN 48 H (7-17) mg/dL Creatinine 1.35 H (0.52-1.04) mg/dL Glucose 119 H (74-99) mg/dL Calcium 9.7 (8.4-10.2) mg/dL AST 33 (14-36) U/L ALT 16 (9-52) U/L Alkaline Phosphatase 60 (38-126) U/L Total Protein 6.7 (6.3-8.2) g/dL Albumin 3.8 (3.5-5.0) g/dL Current Medications Generic Name Dose Route Start Last Admin Trade Name Freq PRN Reason Stop Dose Admin Albuterol Sulfate 2.5 mg 05/19/19 21:13 Ventolin Nebulized INHALATION RT-Q4H PRN Shortness Of Breath Albuterol/Ipratropium 3 ml 05/20/19 08:00 05/20/19 11:55 Duoneb 0.5 Mg-3 Mg/3 Ml Soln INHALATION 3 ml RT-QID STEPHON Administration Albuterol/Ipratropium 3 ml 05/19/19 21:13 Duoneb 0.5 Mg-3 Mg/3 Ml Soln INHALATION RT-Q6H PRN Shortness Of Breath Bisacodyl 10 mg 05/19/19 21:13 Dulcolax RECTAL DAILY PRN Constipation Budesonide 0.5 mg 05/20/19 08:00 05/20/19 07:53 Pulmicort INHALATION 0.5 mg RT-BID STEPHON Administration Carbidopa/Levodopa 1 each 05/20/19 08:00 05/20/19 10:03 Sinemet 25-100 PO 1 each TID@0800,1400,2100 [facility] Administration Ferrous Sulfate 325 mg 05/20/19 17:00 Feosol PO DAILY@1700 [facility] Fluoxetine HCl 40 mg 05/20/19 09:00 05/20/19 10:03 Prozac PO 40 mg DAILY [facility] Administration Furosemide 40 mg 05/20/19 09:00 05/20/19 10:03 Lasix PO 40 mg DAILY [facility] Administration Gabapentin 100 mg 05/20/19 08:00 05/20/19 10:03 Neurontin PO 100 mg BID@0800,1700 [facility] Administration Heparin Sodium (Porcine) 5,000 unit 05/20/19 09:00 05/20/19 10:03 Heparin SQ 5,000 unit Q12HR [facility] Administration Piperacillin Sod/Tazobactam 100 mls @ 25 mls/hr 05/20/19 00:00 05/20/19 10:03 Sod 3.375 gm/ Sodium Chloride IVPB 25 mls/hr Q8HR [facility] Administration Ketotifen Fumarate 1 drops 05/20/19 09:00 05/20/19 10:03 Zaditor BOTH EYES 1 drops BID [facility] Administration Losartan Potassium 25 mg 05/20/19 09:00 05/20/19 10:03 Cozaar PO 25 mg DAILY [facility] Administration Magnesium Oxide 400 mg 05/20/19 17:00 Mag-Ox PO DAILY@1700 [facility] Morphine Sulfate 4 mg 05/19/19 21:11 05/20/19 07:06 Morphine Sulfate (Inj) IV 4 mg Q4HR PRN Administration Severe Pain Naloxone HCl 0.2 mg 05/19/19 21:11 Narcan IV Q2M PRN Opioid Reversal Ondansetron HCl 4 mg 05/19/19 21:11 Zofran IVP Q8HR PRN Nausea And Vomiting Pantoprazole Sodium 40 mg 05/20/19 07:30 05/20/19 07:03 Protonix PO 40 mg [id number] STEPH[facility] Administration Potassium Chloride 20 meq 05/20/19 09:00 05/20/19 10:03 K-Dur 20 PO 20 meq DAILY [facility] Administration Propafenone HCl 150 mg 05/20/19 16:00 Rythmol PO TID [facility] Temazepam 15 mg 05/19/19 21:11 Restoril PO HS PRN Insomnia Intake and Output 05/20/19 05/20/19 05/20/19 06:59 14:59 22:59 Intake Total 20 Output Total 500 Balance -500 20 Intake: Oral 20 Output: Urine 500 Straight 500 Other: Voiding Method Bedpan Bedpan Diaper Diaper Incontinent # Voids 0 Weight 88 kg 05/19/19 19:25 05/19/19 19:25 EKG Interpretations (text) EKG shows atrial tachycardia Assessment and Plan Plan: assessment and plan 1. Abnormal troponins, likely secondary to hypoxia or pneumonia. No significant rise and fall pattern. 2. Acute kidney injury with elevated creatinine. 3. Vascular dementia, stable. 4. Paroxysmal atrial fibrillation. 5. COPD without exacerbation. 6. Hypertension. 7. Hyperlipidemia. 8. Generalized osteoarthritis. 9. History of rheumatoid arthritis. 10. Hypothyroidism with large goiter, stable. 11. Peptic ulcer disease. 12. Parkinson's disease. 13. Congestive heart failure, LV function unknown. Plan From cardiology's perspective, we'll discontinue the Rythmol, start the patient on 25 mg twice a day of beta ayo as well as anticoagulation in the form of Eliquis. Obtain an echocardiogram with Doppler study. We will also discontinue the by mouth Lasix and start IV diuretics. DNP note has been reviewed, I agree with a documented findings and plan of care. Patient was seen and examined.
--- NOTE | 2019-05-20 15:40 | FL ---
EXAMINATION TYPE: FL barium swallow w video DATE OF EXAM: 05/20/2019 MODIFIED SWALLOW / DEGLUTITION STUDY CLINICAL HISTORY: Dysphagia. TECHNIQUE: Deglutition study is performed utilizing thin liquid barium, honey and nectar thick liqui d barium, barium thick applesauce, and barium coated cracker. 2.05 minutes of fluoroscopy time was ut ilized with 0 images saved as the examination was video recorded. COMPARISON: None. FINDINGS: The oral and pharyngeal phases show satisfactory initiation and propagation with all modali ties tested. Normal mastication is seen with solid modalities tested. Repeated laryngeal penetratio n is seen with the thin barium consistency resolved with the chin tuck maneuver. Vallecular residual was noted with the pudding and barium coated cracker consistencies. There is no evidence of penetrati on with any modality tested. IMPRESSION: Laryngeal penetration with the thin barium consistency resolved with chin tuck maneuver. Vallecular residuals with thick consistencies. Please refer to speech therapist notes for further det ails if necessary.
--- NOTE | 2019-05-20 15:58 | P.CNPUL ---
History of Present Illness Consult date: 05/20/19 Requesting physician: Kimi Young Reason for consult: dyspnea Chief complaint: Hypoxemia, tachycardia, dyspnea History of present illness: This 83-year-old white female patient of Dr. Rolle, resident of [facility] rehab, has a past medical history of vascular dementia, paroxysmal atrial fibrillation, not on any chronic anticoagulation, hypothyroidism, hyperlipidemia, COPD, rheumatoid arthritis, peptic ulcer disease, Parkinson's disease, degenerative disc disease, who was brought in to the hospital from [facility] re[facility] per EMS for evaluation of hypoxemia, and tachycardia, and concern for pulmonary embolism. CT angios chest was completed showing no evidence of pulmonary embolism, it did show patchy infiltration and atelectatic changes in the upper and lower lobes bilaterally, pulmonary interstitial prominence, small pleural effusions, and markedly enlarged left thyroid lobe consistent with multinodular goiter. Lab work reviewed showing no leukocytosis, with a white blood cell count of 6.9, hemoglobin of 11.0, sodium of 137, potassium of 5.4, chloride is 100, CO2 is 29, BUN is 48, creatinine is 1.35 plasma lactic acid is 1.0, troponins were 0.091, 0.077, and 0.071, BNP was significantly elevated at 19,000, urinalysis was without any evidence of infection, TSH was within normal limits at 2.44. Doubt underlying pneumonia, nevertheless patient was started on empiric antibiotics, cardiology has also evaluated the patient, echocardiogram with Doppler study is pending, she has been started on IV diuretics, and oral anticoagulation in the form of Eliquis f or paroxysmal atrial fibrillation Review of Systems All systems: negative Constitutional: Denies chills, Denies fever Eyes: denies blurred vision, denies pain Ears, nose, mouth and throat: Denies headache, Denies sore throat Cardiovascular: Denies chest pain, Denies shortness of breath Respiratory: Reports dyspnea, Denies cough Gastrointestinal: Denies abdominal pain, Denies diarrhea, Denies nausea, Denies vomiting Genitourinary: Denies dysuria, Denies hematuria Musculoskeletal: Denies myalgias Integumentary: Denies pruritus, Denies rash Neurological: Denies numbness, Denies weakness Psychiatric: Denies anxiety, Denies depression Endocrine: Denies fatigue, Denies weight change Past Medical History Past Medical History: Atrial Fibrillation, Atrial Flutter, COPD, Dementia, GERD/Reflux, GI Bleed, Hyperlipidemia, Memory Impairment, Osteoarthritis (OA), Rheumatoid Arthritis (RA), Thyroid Disorder Additional Past Medical History / Comment(s): A. fib/A flutter, COPD, hyperlipidemia, vascular dementia, osteoarthritis, RA, overactive bladder, Parkinson disease, depression, chronic kidney disease stage II, left thyroid nodule, meningioma,. chronic low back pain status post recent L5-S1 discectomy with removal of epidural mass. Last Myocardial Infarction Date:: I thyroid left nodule diagnosed October 2012 suspected goiter, meningioma History of Any Multi-Drug Resistant Organisms: MRSA Date of last positivie culture/infection: 2012 MDRO Source:: unknown Past Surgical History: Appendectomy, Back Surgery, Cholecystectomy, Hysterectomy, Orthopedic Surgery Additional Past Surgical History / Comment(s): multiple leg surgeries, bladder prolapse surgery, bilateral total knee arthroplasty, lumbar laminectomy L5-S1 discectomy with epidural mass resection 02/17/[address] Cosby, appendectomy,. cholecystectomy, hysterectomy orthopedic surgery. Past Anesthesia/Blood Transfusion Reactions: No Reported Reaction Past Psychological History: No Psychological Hx Reported, Anxiety, Depression Smoking Status: Never smoker Past Alcohol Use History: None Reported Additional Past Alcohol Use History / Comment(s): Patient currently resides at [facility] for 4 years. She is wheelchair bound. Past Drug Use History: None Reported - Past Family History Father Family Medical History: Myocardial Infarction (ME) Mother Family Medical History: Cancer Sister(s) Family Medical History: Myocardial Infarction (ME) Daughter(s) Family Medical History: No Reported History Medications and Allergies Home Medications Medication Instructions Recorded Confirmed Type Acetaminophen [Tylenol] 650 mg PO Q4H PRN 02/06/14 05/19/19 History FLUoxetine HCL 40 mg PO DAILY 02/06/14 05/19/19 History Ferrous Sulfate [Feosol] 325 mg PO DAILY@1700 02/06/14 05/19/19 History Ipratropium/Albuterol Sulfate 3 ml INHALATION RT-QID 02/06/14 05/19/19 History [Duoneb 0.5 mg-3 mg/3 ml Soln] Multivitamins, Thera [Multivitamin 1 tab PO DAILY@1700 02/06/14 05/19/19 History (formulary)] Propafenone HCl 150 mg PO TID@0800,1400,209902/06/14 05/19/19 History Gabapentin [Neurontin] 100 mg PO BID@0800,17002/12/14 05/19/19 History Pantoprazole Sodium [Protonix] 40 mg PO DAILY #30 tab 04/19/14 05/19/19 Rx Bisacodyl [Dulcolax] 10 mg RECTAL DAILY PRN 01/03/19 05/19/19 History Carbidopa-Levodopa 25-100 mg 1 tab PO TID@0800,1400,209901/03/19 05/19/19 History [Sinemet 25-100 mg] Cholecalciferol [Vitamin D3 (25 1,000 unit PO DAILY@169901/03/19 05/19/19 History Mcg = 1000 Iu)] Fluticasone Nasal [place] [Flonase 1 spray EA NOSTRIL DAILY PRN 01/03/19 05/19/19 History Nasal [place]] Fluticasone Propionate [Flovent 1 puff INHALATION RT-BID@0800,169901/03/19 05/19/19 History Hfa 110 mcg] Furosemide [Lasix] 40 mg PO DAILY 01/03/19 05/19/19 History HYDROcodone/APAP 5-325MG [[place] 1 tab PO HS@209901/03/19 05/19/19 History 5-325] HYDROcodone/APAP 5-325MG [[place] 1 tab PO Q4HR PRN 01/03/19 05/19/19 History 5-325] L.acidoph,Paracasei, B.lactis 1 cap PO DAILY@169901/03/19 05/19/19 History [Probiotic] Loratadine [Claritin] 10 mg PO DAILY 01/03/19 05/19/19 History Losartan [Cozaar] 25 mg PO DAILY 01/03/19 05/19/19 History Mag Hydrox/Al Hydrox/Simeth 15 ml PO QID PRN 01/03/19 05/19/19 History [Maalox] Magnesium Hydroxide [Milk of 7,200 mg PO DAILY PRN 01/03/19 05/19/19 History Magnesia Concentrate] Magnesium Oxide [Magox 400] 400 mg PO DAILY@169901/03/19 05/19/19 History Na Phos,M-B/Na Phos,Di-Ba [Fleet 133 ml RECTAL DAILY PRN 01/03/19 05/19/19 History Adult] Potassium Chloride ER [K-Dur 20] 20 meq PO DAILY 01/03/19 05/19/19 History Albuterol Nebulized [Ventolin 2.5 mg INHALATION RT-Q4H PRN 05/19/19 05/19/19 His tory Nebulized] Budesonide [Pulmicort] 0.5 mg INHALATION RT-BID 05/19/19 05/19/19 History Ipratropium-Albuterol Nebulize 3 ml INHALATION RT-Q6H PRN 05/19/19 05/19/19 History [Duoneb 0.5 mg-3 mg/3 ml Soln] Levofloxacin [Levaquin] 250 mg PO DAILY@1900 05/19/19 05/19/19 History Olopatadine HCl [Pataday] 1 drop BOTH EYES DAILY 05/19/19 05/19/19 History guaiFENesin [Mucinex] 600 mg PO Q12H 05/19/19 05/19/19 History Allergies Allergy/AdvReac Type Severity Reaction Status Date / Time pneumococcal vaccine Allergy Rash/Hives Verified 05/19/19 19:50 Physical Exam Vitals: Vital Signs Temp Pulse Pulse Resp BP BP Pulse Ox 05/20/19 12:55 97 F L 96 24 209/99 95 05/20/19 12:40 97 05/20/19 12:02 86 05/20/19 11:55 84 05/20/19 10:49 97 05/20/19 09:17 80 05/20/19 08:50 97.4 F L 26 H 136/71 100 05/20/19 08:06 82 05/20/19 07:52 76 05/20/19 03:49 97.4 F L 80 18 142/67 98 05/20/19 01:30 97.8 F 96 17 144/74 99 05/19/19 23:54 98.1 F 78 18 163/97 93 L 05/19/19 21:12 98.1 F 105 H 18 133/89 99 05/19/19 19:19 101 H 20 127/86 96 Intake and Output 05/20/19 05/20/19 05/20/19 06:59 14:59 22:59 Intake Total 20 Output Total 500 700 Balance -500 20 -700 Intake: Oral 20 Output: Urine 500 700 Straight 500 350 Other: Voiding Method Bedpan Bedpan Bedpan Diaper Diaper Diaper Incontinent Incontinent # Voids 0 1 Weight 88 kg GENERAL EXAM: Alert, very pleasant, 83-year-old white female, on 4 L of oxygen with a pulse of 700% comfortable in no apparent distress. HEAD: Normocephalic/atraumatic. EYES: Normal reaction of pupils, equal size. Conjunctiva pink, sclera white. NOSE: Clear with pink turbinates. THROAT: No erythema or exudates. NECK: No masses, no JVD, no thyroid enlargement, no adenopathy. CHEST: No chest wall deformity. Symmetrical expansion. LUNGS: Equal air entry with minimal crackles at bilateral bases CVS: Regular rate and rhythm, normal S1 and S2, no gallops, no murmurs, no rubs ABDOMEN: Soft, nontender. No hepatosplenomegaly, normal bowel sounds, no guarding or rigidity. EXTREMITIES: No clubbing, no edema, no cyanosis, 2+ pulses and upper and lower extremities. MUSCULOSKELETAL: Muscle strength and tone normal. SPINE: No scoliosis or deformity SKIN: No rashes CENTRAL NERVOUS SYSTEM: Alert and oriented -3. No focal deficits, tone is normal in all 4 extremities. PSYCHIATRIC: Alert and oriented -3. Appropriate affect. Intact judgment and insight. Results - Laboratory Findings CBC and BMP: 05/19/19 19:25 05/19/19 19:25 PT/INR, D-dimer PT 9.8 sec (9.0-12.0) 05/19/19 19:25 INR 0.9 (<1.2) 05/19/19 19:25 Abnormal lab findings: Abnormal Labs 05/19/19 05/19/19 05/19/19 19:25 19:25 19:25 RBC 3.62 L Hgb 11.0 L Lymphocytes # 0.3 L APTT 19.3 L Potassium 5.4 H BUN 48 H Creatinine 1.35 H Glucose 119 H Troponin I Ur Specific [place] 05/19/19 05/20/19 05/20/19 19:25 01:56 04:30 RBC Hgb Lymphocytes # APTT Potassium BUN Creatinine Glucose Troponin I 0.091 H* 0.077 H* Ur Specific [place] 1.038 H 05/20/19 07:15 RBC Hgb Lymphocytes # APTT Potassium BUN Creatinine Glucose Troponin I 0.071 H* Ur Specific [place] - Diagnostic Findings Chest x-ray: report reviewed, image reviewed CT scan - chest: report reviewed, image reviewed Additional studies: EKG reviewed Assessment and Plan Plan: Assessment: #1. Acute hypoxemic respiratory failure related to acute exacerbation of congestive heart failure with an unknown EF #2. Elevated troponins, without significant rise and fall, and without acute ischemic changes on the EKG #3. Paroxysmal atrial fibrillation, currently in sinus rhythm #4. Hypertension #5. Hyperlipidemia #6. COPD, early stable #7. Vascular dementia #8. Osteoarthritis #9. Rheumatoid arthritis #10. Thyroid disorder, and CTA chest showed markedly enlarged left thyroid lobe consistent with multinodular goiter #11. DJD #12. Patient is a resident of long-term care facility #13. Chronic kidney disease stage II #14. Parkinson's disease Plan: Continue the diuretics, continue the Zosyn for now, we'll send a pro-calcitonin level, continue with nebulized bronchodilators, patient is afebrile, no fever or chills, no cough or congestion, continue monitoring daily labs, electrolytes and renal profile, echocardiogram is pending, swallow evaluation has been ordered. Doubt possibility of pneumonia, COPD is stable. We'll continue to follow I performed a history & physical examination of the patient and discussed their management with my nurse practitioner, Meli Washington. I reviewed the nurse practitioner's note and agree with the documented findings and plan of care. Lung sounds are positive for diminished breath sounds with basilar rales. The findings and the impression was discussed with the patient. I attest to the documentation by the nurse practitioner. Time with Patient: Greater than 30
[2019-05-20] MEDS: MAGNESIUM OXIDE 400 MG TAB PO SCH (16:23)
[2019-05-20] MEDS: FERROUS SULFATE 325 MG TAB PO SCH (16:23)
[2019-05-20] MEDS: PROPAFENONE 150 MG TAB PO SCH ×2 (16:23→20:40)
--- NOTE | 2019-05-20 18:39 | ECHOF ---
Referral Reason:chest pain MEASUREMENTS -------- HEIGHT: 167.6 cm WEIGHT: 88.0 kg BP: 142/67 IVSd: 1.1 cm (0.6 - 1.1) LVIDd: 3.8 cm (3.9 - 5.3) LVPWd: 1.2 cm (0.6 - 1.1) IVSs: 1.5 cm LVIDs: 2.1 cm LVPWs: 1.6 cm LAESV Index (A-L): 48.64 ml/m Ao Diam: 3.2 cm (2.0 - 3.7) AV Cusp: 1.0 cm (1.5 - 2.6) LA Diam: 4.5 cm (2.7 - 3.8) MV E Piero: 1.08 m/s MV DecT: 214 ms MV A Piero: 1.58 m/s MV E/A Ratio: 0.68 AV maxP.96 mmHg AV meanP.41 mmHg RAP: 5.00 mmHg RVSP: 58.60 mmHg TAPSE: 11.45 mm FINDINGS -------- Sinus rhythm. This was a technically adequate study. The left ventricular size is normal. There is mild concentric left ventricular hypertrophy. Overa ll left ventricular systolic function is normal with, an EF between 55 - 60 %. Increased LAP Grade 2 Diastolic Dysfunction. The right ventricle is normal in size. The right ventricular systolic function is severely impaired . LA is severely dilated >40 ml/m2 The right atrial size is normal. Aortic valve is trileaflet and is mildly thickened. There is mild aortic stenosis present. Peak/m mason gradient across the Aortic Valve is 17.96mmHg / 11.41mmHg. The mitral valve is normal. The mitral valve leaflets are moderately thickened. Moderate mitral a nnular calcification present. Shns-sz-[id number] mitral regurgitation is present. The peak and minnie n MV gradients are 12.97mmHg 4.78mmHg as measured by doppler. Mild mitral stenosis. Moderate tricuspid regurgitation present. There is severe pulmonary hypertension. The right ventr icular systolic pressure, as measured by Doppler, is 58.60mmHg. There is no pulmonic regurgitation present. The aortic root size is normal. IVC Not well visulized. There is no pericardial effusion. CONCLUSIONS -------- 1. Sinus rhythm. 2. This was a technically adequate study. 3. The left ventricular size is normal. 4. There is mild concentric left ventricular hypertrophy. 5. Overall left ventricular systolic function is normal with, an EF between 55 - 60 %. 6. Increased LAP Grade 2 Diastolic Dysfunction. 7. The right ventricle is normal in size. 8. The right ventricular systolic function is severely impaired. 9. LA is severely dilated >40 ml/m2 10. The right atrial size is normal. 11. Aortic valve is trileaflet and is mildly thickened. 12. There is mild aortic stenosis present. 13. Peak/mean gradient across the Aortic Valve is 17.96mmHg / 11.41mmHg. 14. The mitral valve is normal. 15. The mitral valve leaflets are moderately thickened. 16. Moderate mitral annular calcification present. 17. Eaip-zn-cvvupcxn mitral regurgitation is present. 18. The peak and mean MV gradients are 12.97mmHg 4.78mmHg as measured by doppler. 19. Mild mitral stenosis. 20. Moderate tricuspid regurgitation present. 21. There is severe pulmonary hypertension. 22. The right ventricular systolic pressure, as measured by Doppler, is 58.60mmHg. 23. There is no pulmonic regurgitation present. 24. The aortic root size is normal. 25. IVC Not well visulized. 26. There is no pericardial effusion. REGISTERED NURSE TEACHER: Miguelina Lee RDCS
[2019-05-20] MEDS: METOPROLOL TARTRATE 25 MG TAB PO SCH (20:35)
[2019-05-20] MEDS: FUROSEMIDE 10 MG/ML 4 ML VIAL IV SCH (20:35)
[2019-05-20] MEDS: APIXABAN 2.5 MG TABLET PO SCH (20:35)
[2019-05-21] MEDS: PIPERACILLIN-TAZOBACTAM 3.375 GM in SODIUM CHLORIDE 0.9% 100 ML IVPB SCH ×3 (01:27→15:31)
[2019-05-21] MEDS: PANTOPRAZOLE 40 MG TABLET PO SCH (06:33)
[2019-05-21 06:57] LABS: Basophils # (A) 0.1 k/uL (0-0.2); Basophils % (A) 2 %; Eosinophils # (A) 0.3 k/uL (0-0.7); Eosinophils % (A) 6 %; HCT 32.3 % (34.0-46.0); HGB 9.9 gm/dL (11.4-16.0); Hypochromasia Slight; Lymphocytes # (A) 0.6 k/uL (1.0-4.8); Lymphocytes % (A) 13 %; MCH 29.6 pg (25.0-35.0); MCHC 30.5 g/dL (31.0-37.0); MCV 96.9 fL (80.0-100.0); Mean Platelet Volume 7.4; Monocytes # (A) 0.5 k/uL (0-1.0); Monocytes % (A) 10 %; Neutrophils # (A) 3.1 k/uL (1.3-7.7); Neutrophils % (A) 66 %; Platelet Count 176 k/uL (150-450); RBC 3.33 m/uL (3.80-5.40); RDW 14.5 % (11.5-15.5); WBC 4.7 k/uL (3.8-10.6)
[2019-05-21 07:13] LABS: Albumin 3.4 g/dL (3.5-5.0); Calcium 9.5 mg/dL (8.4-10.2); Potassium 4.2 mmol/L (3.5-5.1); Total Bilirubin 0.6 mg/dL (0.2-1.3)
[2019-05-21] MEDS: GABAPENTIN 100 MG CAP PO SCH ×2 (08:15→15:31)
[2019-05-21] MEDS: FLUoxetine HCL 20 MG CAP PO SCH (08:16)
[2019-05-21] MEDS: APIXABAN 2.5 MG TABLET PO SCH ×2 (08:17→21:17)
[2019-05-21] MEDS: LOSARTAN 25 MG TAB PO SCH (08:18)
[2019-05-21] MEDS: CARBIDOPA-LEVODOPA 25-100 MG 1 EACH TAB PO SCH ×3 (08:19→21:17)
[2019-05-21] MEDS: KETOTIFEN 0.025% OPHTH DROPS 5 ML BTL BOTH EYES SCH ×2 (08:32→21:43)
[2019-05-21] MEDS: PROPAFENONE 150 MG TAB PO SCH ×3 (08:35→21:47)
[2019-05-21] MEDS: BUDESONIDE 0.5 MG/2 ML NEBU INHALATION SCH ×2 (08:39→19:17)
[2019-05-21] MEDS: IPRATROPIUM-ALBUTEROL 3 ML NEB INHALATION SCH ×4 (08:39→19:17)
[2019-05-21] MEDS: FUROSEMIDE 10 MG/ML 4 ML VIAL IV SCH (08:47)
[2019-05-21] MEDS: POTASSIUM CHLORIDE ER 20 MEQ TAB.ER PO SCH (10:19)
[2019-05-21] MEDS: METOPROLOL TARTRATE 25 MG TAB PO SCH ×2 (10:19→21:48)
[2019-05-21] MEDS: MORPHINE SULFATE 4 MG/ML SYRINGE IV PRN (12:17)
--- NOTE | 2019-05-21 13:55 | P.PN ---
Subjective Progress Note Date: 05/21/19 This is an 83-year-old female who is a long-term resident at [facility], past medical history significant for vascular dementia, paroxysmal atrial fibrillation, hyperlipidemia, COPD, osteoarthritis, rheumatoid arthritis, thyroid disorder, peptic ulcer disease, Parkinson's, degenerative joint disease, was recently treated as an outpatient for pneumonia and presented to the hospital with symptoms of shortness of breath with associated fever and productive cough. She again demonstrates and pneumonia onthis admission. The CT of the chest did not reveal evidence for pulmonary embolism, it did show patchy infiltrate and atelectasis in the upper and lower lobes bilaterally which has increased as compared with prior exam. Patient denies any point in time having any discomfort in her chest.blood pressure this morning 136/70 with a heart rate in the 80s.White blood cell count 6.9, hemoglobin 11, platelet count 193, sodium 137, potassium 5.4, BUN 48 and creatinine 1.3.troponins 0.09, 0.07, 0.07. TSH 2.4, BNP level 19,000. Cardiology consultation was requested because of abnormality in troponin.the patient's troponin does not demonstrate any significant rise or fall pattern to suggest acute coronary syndrome. Could be secondary to infection from pneumonia.We will request an echocardiogram with Doppler study be performed. We will also discontinue the by mouth Lasix and give the patient a dose of IV Lasix.on review of the rhythm strips, it appears that the patient does have an atrial tachycardia and possible intermittent atrial fibrillation. We will start the patient on a beta ayo at 25 mg one tablet by mouth twice a day, we also recommend anticoagulation and will initiate the patient on Eliquis 2-1/2 mg one tablet by mouth twice a day. 05/21/2019 Patient was seen and examined this morning, hemodynamically stable.blood pressure 104/60 with a heart rate in the 60s, 98% on 2 L of oxygen.echocardiogram with Doppler study revealed a normal left ventricular systolic function with moderate mitral regurgitation. Objective - Vital Signs Vital signs: Vital Signs Temp 98.1 F 05/21/19 10:35 Pulse 88 05/21/19 11:54 Resp 16 05/21/19 11:35 BP 104/67 05/21/19 11:35 Pulse Ox 98 05/21/19 11:35 Intake & Output 05/20/19 05/21/19 05/21/19 18:59 06:59 18:59 Intake Total 20 100 Output Total 700 3700 Balance -680 -3600 Weight 90 kg Intake: Intake, IV Titration 100 Amount Piperacillin-Tazobactam 3 100 .375 gm In Sodium Chloride 0.9% 100 ml @ 25 mls/hr IVPB Q8HR [facility] Rx# :[id number] Oral 20 Output: Urine 700 3700 Straight 350 900 Other: Voiding Method Bedpan Indwelling Catheter Indwelling Catheter Diaper Incontinent # Voids 1 - Exam PHYSICAL EXAMINATION: GENERAL:83-year-old female in no acute distress at the time of my examination HEENT: Head is atraumatic, normocephalic. Pupils equal, round. Sclera anicteric. Conjunctiva are clear. Mucous membranes of the mouth are moist. Neck is supple. There is no elevated jugular venous pressure. no carotid bruit is heard. HEART EXAMINATION: heart S1 S2 1 systolic ejection murmur is heard CHEST EXAMINATION:[ Lungs are clear With diminished air entry bilaterally to the bases, crackles heard bilaterally..] ABDOMEN: [ Soft, nontender. Bowel sounds are heard. No organomegaly noted]. EXTREMITIES:[ 2+ peripheral pulses with no evidence of peripheral edema and no calf tenderness noted]. NEUROLOGIC [patient is awake, alert and oriented X2.] - Labs CBC & Chem 7: 05/21/19 06:24 05/21/19 06:24 Labs: Abnormal Lab Results - Last 24 Hours (Table) 05/20/19 05/21/19 05/21/19 Range/Units 07:15 06:24 06:24 RBC 3.33 L (3.80-5.40) m/uL Hgb 9.9 L (11.4-16.0) gm/dL Hct 32.3 L (34.0-46.0) % MCHC 30.5 L (31.0-37.0) g/dL Lymphocytes # 0.6 L (1.0-4.8) k/uL BUN 37 H (7-17) mg/dL Creatinine 1.23 H (0.52-1.04) mg/dL Total Protein 6.0 L (6.3-8.2) g/dL Albumin 3.4 L (3.5-5.0) g/dL Procalcitonin 0.15 H (0.02-0.09) ng/mL Microbiology - Last 24 Hours (Table) 05/20/19 07:15 Blood Culture - Preliminary Blood No Growth after 24 hours Assessment and Plan Plan: assessment and plan 1. Abnormal troponins, likely secondary to hypoxia or pneumonia. No significant rise and fall pattern. 2. Acute kidney injury with elevated creatinine. 3. Vascular dementia, stable. 4. Paroxysmal atrial fibrillation. 5. COPD without exacerbation. 6. Hypertension. 7. Hyperlipidemia. 8. Generalized osteoarthritis. 9. History of rheumatoid arthritis. 10. Hypothyroidism with large goiter, stable. 11. Peptic ulcer disease. 12. Parkinson's disease. 13. Congestive heart failure, diastolic acute on chronic Plan cardiology's perspective, we'll recommend to continue this patient on her current medications. We will follow her along now on an as-needed basis only, please don't hesitate to call with any questions. DNP note has been reviewed, I agree with a documented findings and plan of care. Patient was seen and examined.
[2019-05-21] MEDS: FUROSEMIDE 40 MG TAB PO SCH (15:31)
[2019-05-21] MEDS: FERROUS SULFATE 325 MG TAB PO SCH (15:31)
[2019-05-21] MEDS: MAGNESIUM OXIDE 400 MG TAB PO SCH (15:31)
--- NOTE | 2019-05-21 15:35 | P.PN ---
Subjective Progress Note Date: 05/21/19 Principal diagnosis: Acute hypoxic respiratory failure secondary to an acute exacerbation of congestive heart failure. This 83-year-old white female patient of Dr. Rolle, resident of [facility] rehab, has a past medical history of vascular dementia, paroxysmal atrial fi brillation, not on any chronic anticoagulation, hypothyroidism, hyperlipidemia, COPD, rheumatoid arthritis, peptic ulcer disease, Parkinson's disease, degenerative disc disease, who was brought in to the hospital from [facility] per EMS for evaluation of hypoxemia, and tachycardia, and concern for pulmonary embolism. CT angios chest was completed showing no evidence of pulmonary embolism, it did show patchy infiltration and atelectatic changes in the upper and lower lobes bilaterally, pulmonary interstitial prominence, small pleural effusions, and markedly enlarged left thyroid lobe consistent with multinodular goiter. Lab work reviewed showing no leukocytosis, with a white blood cell count of 6.9, hemoglobin of 11.0, sodium of 137, potassium of 5.4, chloride is 100, CO2 is 29, BUN is 48, creatinine is 1.35 plasma lactic acid is 1.0, troponins were 0.091, 0.077, and 0.071, BNP was significantly elevated at 19,000, urinalysis was without any evidence of infection, TSH was within normal limits at 2.44. Doubt underlying pneumonia, nevertheless patient was started on empiric antibiotics, cardiology has also evaluated the patient, echocardiogram with Doppler study is pending, she has been started on IV diuretics, and oral anticoagulation in the form of Eliquis for paroxysmal atrial fibrillation. The patient was seen today 05/21/2019 in follow-up on the regular medical floor. She is awake and alert in no acute distress. She is maintaining good O2 saturations in the mid 90s on 2 L/m per nasal cannula. She's been afebrile. White count 4.7. Hemoglobin 9.9. Creatinine 1.23. She remains on DuoNeb inhalations, Pulmicort and Perforomist inhalations, Zosyn. Anticoagulated with Eliquis. Objective - Vital Signs Vital signs: Vital Signs Temp 98.1 F 05/21/19 10:35 Pulse 88 05/21/19 11:54 Resp 16 05/21/19 11:35 BP 104/67 05/21/19 11:35 Pulse Ox 98 05/21/19 11:35 Intake & Output 05/20/19 05/21/19 05/21/19 18:59 06:59 18:59 Intake Total 20 100 100 Output Total 700 3700 Balance -680 -3600 100 Weight 90 kg Intake: Intake, IV Titration 100 100 Amount Piperacillin-Tazobactam 3 100 100 .375 gm In Sodium Chloride 0.9% 100 ml @ 25 mls/hr IVPB Q8HR [facility] Rx# :[id number] Oral 20 Output: Urine 700 3700 Straight 350 900 Other: Voiding Method Bedpan Indwelling Catheter Indwelling Catheter Diaper Incontinent # Voids 1 - Constitutional Constitutional Comment(s): GENERAL EXAM: Alert, pleasant, 83-year-old female patient, on 2 L of oxygen with a pulse of 95% comfortable in no apparent distress. HEAD: Normocephalic/atraumatic. EYES: Normal reaction of pupils, equal size. Conjunctiva pink, sclera white. NOSE: Clear with pink turbinates. THROAT: No erythema or exudates. NECK: No masses, no JVD, no thyroid enlargement, no adenopathy. CHEST: No chest wall deformity. Symmetrical expansion. LUNGS: Equal air entry with minimal crackles at bilateral bases CVS: Regular rate and rhythm, normal S1 and S2, no gallops, no murmurs, no rubs ABDOMEN: Soft, nontender. No hepatosplenomegaly, normal bowel sounds, no guarding or rigidity. EXTREMITIES: No clubbing, no edema, no cyanosis, 2+ pulses and upper and lower extremities. MUSCULOSKELETAL: Muscle strength and tone normal. SPINE: No scoliosis or deformity SKIN: No rashes CENTRAL NERVOUS SYSTEM: No focal deficits, tone is normal in all 4 extremities. PSYCHIATRIC: Alert and oriented -3. Appropriate affect. Intact judgment and insight. - Labs CBC & Chem 7: 05/21/19 06:24 05/21/19 06:24 Labs: Abnormal Lab Results - Last 24 Hours (Table) 05/20/19 05/21/19 05/21/19 Range/Units 07:15 06:24 06:24 RBC 3.33 L (3.80-5.40) m/uL Hgb 9.9 L (11.4-16.0) gm/dL Hct 32.3 L (34.0-46.0) % MCHC 30.5 L (31.0-37.0) g/dL Lymphocytes # 0.6 L (1.0-4.8) k/uL BUN 37 H (7-17) mg/dL Creatinine 1.23 H (0.52-1.04) mg/dL Total Protein 6.0 L (6.3-8.2) g/dL Albumin 3.4 L (3.5-5.0) g/dL Procalcitonin 0.15 H (0.02-0.09) ng/mL Microbiology - Last 24 Hours (Table) 05/20/19 07:15 Blood Culture - Preliminary Blood No Growth after 24 hours Assessment and Plan Assessment: Assessment: #1. Acute hypoxemic respiratory failure related to acute exacerbation of congestive heart failure with an unknown EF #2. Elevated troponins, without significant rise and fall, and without acute ischemic changes on the EKG #3. Paroxysmal atrial fibrillation, currently in sinus rhythm #4. Hypertension #5. Hyperlipidemia #6. COPD, early stable #7. Vascular dementia #8. Osteoarthritis #9. Rheumatoid arthritis #10. Thyroid disorder, and CTA chest showed markedly enlarged left thyroid lobe consistent with multinodular goiter #11. DJD #12. Patient is a resident of long-term care facility #13. Chronic kidney disease stage II #14. Parkinson's disease Plan: The patient was seen and evaluated by Dr. Lewis. She is currently stable from the pulmonary standpoint. We'll continue with her current medications. Swallow evaluation pending. Increase her activity as tolerated. We'll continue to follow. I, the cosigning physician, performed a history & physical examination of the patient. Lungs sounds with crackles in the bilateral posterior bases Maintaining good O2 saturations in the 90s on 2 L/m per nasal. I discussed the assessment and plan of care with my nurse practitioner, Ada Kohli. I attest to the above note as dictated by her.
--- NOTE | 2019-05-21 16:17 | P.PN ---
Subjective Progress Note Date: 05/21/19 This is an 83-year-old female patient of Dr. Rolle, long-term resident at [facility] with past medical history of vascular dementia, paroxysmal atrial fibrillation, hyperlipidemia, chronic obstructive pulmonary disease, osteoarthritis, rheumatoid arthritis, thyroid disorder, peptic ulcer disease, P arkinson disease, meningioma, DDD status post lumbar discectomy. Patient had elevated troponin, hypoxic and tachycardia and concern for pulmonary embolism at [facility] and patient was sent to [facility] for evaluation. Heart rate was 101, pulse ox 96% on room air, WBC 6.9, hemoglobin 11, BUN 48 creatinine 1.35 potassium 5.4, blood sugar 119. ProBNP 19,000. Troponin 0.091. Pelvic x-ray showed no acute abdomen illness. CAT scan angiogram of the chest showed no evidence of pulmonary embolism. Patchy infiltrate and atelectasis in the upper and lower lobes bilaterally that are increased. Interstitial fibrosis. Small pleural effusions unchanged. Bronchiectasis right lower lobe. Markedly enlarged left thyroid lobe consistent with multinodular goiter appears increased CAT SCAN. Patient is denying any chest pain or abdominal pain. She is a poor historian. She is pleasantly confused. Consult with Dr. Lewis and also consult with cardiology regarding elevated troponins. Echocardiogram has been ordered and barium swallow. Patient has been residing at [facility] for the past 4 years. She is wheelchair bound. She has a chronic cough and history of frequent urinary tract infections. 05/21: Pro calcitonin 0.15, TSH 2.44. Repeat BUN 37 creatinine 1.23. WBC 4.7, hemoglobin 9.9, platelet count 176. Patient remains afebrile, blood pressure 124/86, heart rate 60, pulse ox 100% on 2 L nasal cannula. Echocardiogram reveals normal left ventricular systolic function and moderate mitral regurgitation. Cardiology has signed off her case. Pulmonary medicine is recommended continuing her same medications. Modified barium swallow was completed with recommendations for checkup diet and aspiration precautions, no straws. Patient will be transferred to [facility] floor today. Anticipate discharge back to [facility] on Friday. Objective - Vital Signs Vital signs: Vital Signs Temp 98.1 F 05/21/19 10:35 Pulse 88 05/21/19 11:54 Resp 16 05/21/19 11:35 BP 104/67 05/21/19 11:35 Pulse Ox 98 05/21/19 11:35 Intake & Output 05/20/19 05/21/19 05/21/19 18:59 06:59 18:59 Intake Total 20 100 Output Total 700 3700 Balance -680 -3600 Weight 90 kg Intake: Intake, IV Titration 100 Amount Piperacillin-Tazobactam 3 100 .375 gm In Sodium Chloride 0.9% 100 ml @ 25 mls/hr IVPB Q8HR [facility] Rx# :[id number] Oral 20 Output: Urine 700 3700 Straight 350 900 Other: Voiding Method Bedpan Indwelling Catheter Indwelling Catheter Diaper Incontinent # Voids 1 - Exam Review of Systems Constitutional: Denies chills, Denies fatigue, Denies fever, Denies poor appetite, Denies weight loss Eyes: denies blurred vision, denies pain Ears, nose, mouth and throat: Denies dental pain, Denies headache, Denies nasal congestion, denies difficulty swallowing, Denies sore throat, Denies vertigo Cardiovascular: Denies chest pain, Denies dyspnea on exertion, Denies edema, Denies leg edema, Denies shortness of breath, Denies syncope Respiratory: Denies congestion, Denies cough, Denies cough with sputum, Denies dyspnea, Denies excessive sputum, Denies hemoptysis, Denies wheezing Gastrointestinal: Denies abdominal pain, Denies diarrhea, Denies loss of appetite, Denies nausea, Denies vomiting Genitourinary: Denies dysuria, Denies hematuria Musculoskeletal: Reports gait dysfunction, Reports muscle weakness, Denies myalgias Integumentary: Denies pruritus, Denies rash, Denies wounds Neurological: Denies change in mentation, Denies change in speech, Denies numbness, Denies seizures, Denies weakness Psychiatric: Denies anxiety, Denies depression Endocrine: Denies fatigue, Denies weight change Physical exam: General appearance: Obese, no distress - EENT Eyes: Reports EOMI, Reports PERRLA, Denies photophobia ENT: Reports hard of hearing, Reports NA/AT, Reports normal oropharynx, Denies thrush Ears: bilateral: normal - Neck Neck: Reports normal ROM, Denies lymphadenopathy, Denies stridor, Denies thyromegaly Carotids: bilateral: upstroke delayed Thyroid: bilateral: enlarged - Respiratory Respiratory: bilateral: diminished, negative: dullness, rales, rhonchi, wheezing, prolonged expiration, prolonged inspiration - Cardiovascular Rhythm: regular Heart sounds: normal: S1, S2 Abnormal Heart Sounds: Reports systolic murmur (Systolic ejection murmur 2/6 located in the left sternal border), Reports S3 Gallop, Denies rub, Denies S4 Gallop, Denies click 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 rhythm - Gastrointestinal General gastrointestinal: Reports normal bowel sounds, nondistended, Reports soft, no tenderness, Denies hepatomegaly, Denies organomegaly, Denies rigid, Denies scaphoid, Denies splenomegaly, Denies umbilical hernia, - Integumentary Integumentary: Normal - Neurologic Neurologic: CNII-XII intact - Musculoskeletal Musculoskeletal: Reports generalized weakness, Reports left sided weakness, deformity of the left foot - Psychiatric Psychiatric: Reports A&O x's 2, noted short-term memory deficits, Reports appropriate affect, Reports intact judgment & insight - Labs CBC & Chem 7: 05/21/19 06:24 05/21/19 06:24 Labs: Abnormal Lab Results - Last 24 Hours (Table) 05/20/19 05/21/19 05/21/19 Range/Units 07:15 06:24 06:24 RBC 3.33 L (3.80-5.40) m/uL Hgb 9.9 L (11.4-16.0) gm/dL Hct 32.3 L (34.0-46.0) % MCHC 30.5 L (31.0-37.0) g/dL Lymphocytes # 0.6 L (1.0-4.8) k/uL BUN 37 H (7-17) mg/dL Creatinine 1.23 H (0.52-1.04) mg/dL Total Protein 6.0 L (6.3-8.2) g/dL Albumin 3.4 L (3.5-5.0) g/dL Procalcitonin 0.15 H (0.02-0.09) ng/mL Microbiology - Last 24 Hours (Table) 05/20/19 07:15 Blood Culture - Preliminary Blood No Growth after 24 hours Assessment and Plan Plan: 1. Abnormal troponins, hypoxia and tachycardia at the custodial. Patient denies having any chest pain. Cardiology consult appreciated. Cardiology has signed off her case. Transferred to [facility] floor. 2. Acute kidney injury with elevated creatinine. Avoid nephrotoxic agents. 3. Vascular dementia, stable. 4. Paroxysmal atrial fibrillation. Propafenone 150 mg 3 times daily. 5. COPD without exacerbation. Continue DuoNeb treatments, Pulmicort 0.5 mg twice daily, Zosyn. Pulmonary consult appreciated. 6. Hypertension. Continue losartan 25 mg daily, Lasix 40 mg daily. 7. Hyperlipidemia. 8. Generalized osteoarthritis. 9. History of rheumatoid arthritis. 10. Hypothyroidism with large goiter, stable. 11. Peptic ulcer disease. 12. Parkinson's disease. Continue Sinemet 3 times daily, gabapentin 100 mg twice daily. 13. Meningioma. Discharge plan: Return to [facility] on Friday Impression and plan of care have been directed as dictated by the signing physician. Brenda Lopez nurse practitioner acting as scribe for signing physician.
[2019-05-22] MEDS: PIPERACILLIN-TAZOBACTAM 3.375 GM in SODIUM CHLORIDE 0.9% 100 ML IVPB SCH ×3 (00:01→16:27)
[2019-05-22 08:29] LABS: Albumin 3.2 g/dL (3.5-5.0); Total Bilirubin 0.8 mg/dL (0.2-1.3); Total Protein 5.7 g/dL (6.3-8.2)
[2019-05-22] MEDS: IPRATROPIUM-ALBUTEROL 3 ML NEB INHALATION SCH ×4 (08:29→18:57)
[2019-05-22] MEDS: BUDESONIDE 0.5 MG/2 ML NEBU INHALATION SCH ×2 (08:29→18:57)
[2019-05-22 08:31] LABS: Potassium 5.1 mmol/L (3.5-5.1)
[2019-05-22] MEDS: POTASSIUM CHLORIDE ER 20 MEQ TAB.ER PO SCH (10:00)
[2019-05-22] MEDS: FUROSEMIDE 40 MG TAB PO SCH (10:01)
[2019-05-22] MEDS: FLUoxetine HCL 20 MG CAP PO SCH (10:13)
[2019-05-22] MEDS: METOPROLOL TARTRATE 25 MG TAB PO SCH ×2 (10:14→22:07)
[2019-05-22] MEDS: CARBIDOPA-LEVODOPA 25-100 MG 1 EACH TAB PO SCH ×3 (10:14→22:06)
[2019-05-22] MEDS: LOSARTAN 25 MG TAB PO SCH (10:14)
[2019-05-22] MEDS: APIXABAN 2.5 MG TABLET PO SCH ×2 (10:14→22:06)
[2019-05-22] MEDS: PANTOPRAZOLE 40 MG TABLET PO SCH (10:14)
[2019-05-22] MEDS: GABAPENTIN 100 MG CAP PO SCH ×2 (10:15→16:26)
[2019-05-22] MEDS: KETOTIFEN 0.025% OPHTH DROPS 5 ML BTL BOTH EYES SCH ×2 (10:16→22:07)
[2019-05-22] MEDS: PROPAFENONE 150 MG TAB PO SCH ×3 (10:17→22:07)
[2019-05-22 10:28] LABS: Basophils # (A) 0.2 k/uL (0-0.2); Basophils % (A) 3 %; Eosinophils # (A) 0.4 k/uL (0-0.7); Eosinophils % (A) 6 %; HCT 34.1 % (34.0-46.0); HGB 10.7 gm/dL (11.4-16.0); Hypochromasia Moderate; Lymphocytes # (A) 0.6 k/uL (1.0-4.8); Lymphocytes % (A) 10 %; MCH 30.4 pg (25.0-35.0); MCHC 31.4 g/dL (31.0-37.0); MCV 96.9 fL (80.0-100.0); Mean Platelet Volume 6.4; Monocytes # (A) 0.5 k/uL (0-1.0); Monocytes % (A) 8 %; Neutrophils # (A) 4.2 k/uL (1.3-7.7); Neutrophils % (A) 71 %; Platelet Count 206 k/uL (150-450); RBC 3.52 m/uL (3.80-5.40)
[2019-05-22] MEDS ORDERED: SODIUM CHLORIDE 0.9% 500 ML 500 ML IV ONE (10:46)
--- NOTE | 2019-05-22 10:48 | P.PN ---
Subjective Progress Note Date: 05/22/19 This 83-year-old white female patient of Dr. Rolle, resident of [facility] rehab, has a past medical history of vascular dementia, paroxysmal atrial fibrillation, not on any chronic anticoagulation, hypothyroidism, hyperlipidemia, COPD, rheumatoid arthritis, peptic ulcer disease, Parkinson's disease, degenerative disc disease, who was brought in to the hospital from [facility] per EMS for evaluation of hypoxemia, and tachycardia, and concern for pulmonary embolism. CT angios chest was completed showing no evidence of pulmonary embolism, it did show patchy infiltration and atelectatic changes in the upper and lower lobes bilaterally, pulmonary interstitial prominence, small pleural effusions, and markedly enlarged left thyroid lobe consistent with multinodular goiter. Lab work reviewed showing no leukocytosis, with a white blood cell count of 6.9, hemoglobin of 11.0, sodium of 137, potassium of 5.4, chloride is 100, CO2 is 29, BUN is 48, creatinine is 1.35 plasma lactic acid is 1.0, troponins were 0.091, 0.077, and 0.071, BNP was significantly elevated at 19,000, urinalysis was without any evidence of infection, TSH was within normal limits at 2.44. Doubt underlying pneumonia, nevertheless patient was started on empiric antibiotics, cardiology has also evaluated the patient, echocardiogram with Doppler study is pending, she has been started on IV diuretics, and oral anticoagulation in the form of Eliquis for paroxysmal atrial fibrillation. The patient was seen today 05/21/2019 in follow-up on the regular medical floor. She is awake and alert in no acute distress. She is maintaining good O2 saturations in the mid 90s on 2 L/m per nasal cannula. She's been afebrile. White count 4.7. Hemoglobin 9.9. Creatinine 1.23. She remains on DuoNeb inhalations, Pulmicort and Perforomist inhalations, Zosyn. Anticoagulated with Eliquis. On today's evaluation of 05/22/2019 the patient is on a medical floor. She is on oxygen at 2 L per minute. She did have some lower blood pressure earlier this morning and based on that the diuretics. And the patient is receiving a bolus of 500 mL of fluid. She is on IV Zosyn. She is aspiration precaution. Swallow evaluation was done. Echo showed a preserved LV function without any significant valvular heart disease or LV dysfunction. She remains on IV Zosyn. The white count is not elevated at 6.0. Creatinine stable at 1.3. The pro- calcitonin level was moderately elevated at 0.15. She did not having fever at time of admission. Objective - Vital Signs Vital signs: Vital Signs Temp 98.3 F 05/22/19 05:00 Pulse 80 05/22/19 08:46 Resp 20 05/22/19 05:00 BP 89/54 05/22/19 05:00 Pulse Ox 90 L 05/22/19 05:00 Intake & Output 05/21/19 05/22/19 05/22/19 18:59 06:59 18:59 Intake Total 320 100 300 Output Total 650 300 Balance -330 -200 300 Intake: Intake, IV Titration 100 Amount Piperacillin-Tazobactam 3 100 .375 gm In Sodium Chloride 0.9% 100 ml @ 25 mls/hr IVPB Q8HR [facility] Rx# :[id number] Oral 220 100 300 Output: Urine 650 300 Other: Voiding Method Indwelling Catheter Indwelling Catheter Indwelling Catheter - Exam GENERAL EXAM: Alert, pleasant, 83-year-old female patient, on 2 L of oxygen with a pulse of 95% comfortable in no apparent distress. HEAD: Normocephalic/atraumatic. EYES: Normal reaction of pupils, equal size. Conjunctiva pink, sclera white. NOSE: Clear with pink turbinates. THROAT: No erythema or exudates. NECK: No masses, no JVD, no thyroid enlargement, no adenopathy. CHEST: No chest wall deformity. Symmetrical expansion. LUNGS: Equal air entry with minimal crackles at bilateral bases CVS: Regular rate and rhythm, normal S1 and S2, no gallops, no murmurs, no rubs ABDOMEN: Soft, nontender. No hepatosplenomegaly, normal bowel sounds, no guarding or rigidity. EXTREMITIES: No clubbing, no edema, no cyanosis, 2+ pulses and upper and lower extremities. MUSCULOSKELETAL: Muscle strength and tone normal. SPINE: No scoliosis or deformity SKIN: No rashes CENTRAL NERVOUS SYSTEM: No focal deficits, tone is normal in all 4 extremities. PSYCHIATRIC: Alert and oriented -3. Appropriate affect. Intact judgment and insight. - Labs CBC & Chem 7: 05/22/19 10:12 05/22/19 07:39 Labs: Abnormal Lab Results - Last 24 Hours (Table) 05/22/19 05/22/19 Range/Units 07:39 10:12 RBC 3.52 L (3.80-5.40) m/uL Hgb 10.7 L (11.4-16.0) gm/dL Lymphocytes # 0.6 L (1.0-4.8) k/uL BUN 41 H (7-17) mg/dL Creatinine 1.32 H (0.52-1.04) mg/dL Alkaline Phosphatase 31 L (38-126) U/L Total Protein 5.7 L (6.3-8.2) g/dL Albumin 3.2 L (3.5-5.0) g/dL Microbiology - Last 24 Hours (Table) 05/20/19 07:15 Blood Culture - Preliminary Blood No Growth after 48 hours Assessment and Plan Plan: #1. Acute hypoxemic respiratory failure related to acute exacerbation of congestive heart failure him a probably a component of diastolic dysfunction. There is also a vague infiltration of the right lung along with some mild elevation of the pro-calcitonin and for that reason the patient is on IV Zosyn. She is also on aspiration precaution risks and swallow evaluation was noted. Echocardiogram was also noted. She does have some dysphagia. #2. Elevated troponins, without significant rise and fall, and without acute ischemic changes on the EKG #3. Paroxysmal atrial fibrillation, currently in sinus rhythm #4. Hypertension #5. Hyperlipidemia #6. COPD, early stable #7. Vascular dementia #8. Osteoarthritis #9. Rheumatoid arthritis #10. Thyroid disorder, and CTA chest showed markedly enlarged left thyroid lobe consistent with multinodular goiter #11. DJD #12. Patient is a resident of long-term care facility #13. Chronic kidney disease stage II #14. Parkinson's disease plan Hold Lasix. Give the bolus. Continue IV Zosyn. Aspiration precautions. She will be ultimately return tomorrow with once her condition is more stable.
--- NOTE | 2019-05-22 14:33 | P.PN ---
Subjective Progress Note Date: 05/22/19 This is an 83-year-old female patient of Dr. Rolle, long-term resident at [facility] with past medical history of vascular dementia, paroxysmal atrial fibrillation, hyperlipidemia, chronic obstructive pulmonary disease, osteoarthritis, rheumatoid arthritis, thyroid disorder, peptic ulcer disease, P arkinson disease, meningioma, DDD status post lumbar discectomy. Patient had elevated troponin, hypoxic and tachycardia and concern for pulmonary embolism at [facility] and patient was sent to [facility] for evaluation. Heart rate was 101, pulse ox 96% on room air, WBC 6.9, hemoglobin 11, BUN 48 creatinine 1.35 potassium 5.4, blood sugar 119. ProBNP 19,000. Troponin 0.091. Pelvic x-ray showed no acute abdomen illness. CAT scan angiogram of the chest showed no evidence of pulmonary embolism. Patchy infiltrate and atelectasis in the upper and lower lobes bilaterally that are increased. Interstitial fibrosis. Small pleural effusions unchanged. Bronchiectasis right lower lobe. Markedly enlarged left thyroid lobe consistent with multinodular goiter appears increased CAT SCAN. Patient is denying any chest pain or abdominal pain. She is a poor historian. She is pleasantly confused. Consult with Dr. Lewis and also consult with cardiology regarding elevated troponins. Echocardiogram has been ordered and barium swallow. Patient has been residing at [facility] for the past 4 years. She is wheelchair bound. She has a chronic cough and history of frequent urinary tract infections. 05/21: Pro calcitonin 0.15, TSH 2.44. Repeat BUN 37 creatinine 1.23. WBC 4.7, hemoglobin 9.9, platelet count 176. Patient remains afebrile, blood pressure 124/86, heart rate 60, pulse ox 100% on 2 L nasal cannula. Echocardiogram reveals normal left ventricular systolic function and moderate mitral regurgitation. Cardiology has signed off her case. Pulmonary medicine is recommended continuing her same medications. Modified barium swallow was completed with recommendations for checkup diet and aspiration precautions, no straws. Patient will be transferred to [facility] floor today. Anticipate discharge back to [facility] on Friday. 05/22: Patient is laying down in bed she appears to be weaker today with some hypotensive episodes over the last few hours, she was given wound bolus of normal saline 500 mL over 1 hour hold diuretics for today, hold antihypertensive medication for systolic blood pressure less than or equal to 110. Review of Systems Constitutional: Denies chills, Denies fatigue, Denies fever, Denies poor appetite, Denies weight loss Eyes: denies blurred vision, denies pain Ears, nose, mouth and throat: Denies dental pain, Denies headache, Denies nasal congestion, denies difficulty swallowing, Denies sore throat, Denies vertigo Cardiovascular: Denies chest pain, Denies dyspnea on exertion, Denies edema, Denies leg edema, Denies shortness of breath, Denies syncope Respiratory: Denies congestion, Denies cough, Denies cough with sputum, Denies dyspnea, Denies excessive sputum, Denies hemoptysis, Denies wheezing Gastrointestinal: Denies abdominal pain, Denies diarrhea, Denies loss of appetite, Denies nausea, Denies vomiting Genitourinary: Denies dysuria, Denies hematuria Musculoskeletal: Reports gait dysfunction, Reports muscle weakness, Denies myalgias Integumentary: Denies pruritus, Denies rash, Denies wounds Neurological: Denies change in mentation, Denies change in speech, Denies numbness, Denies seizures, Denies weakness Psychiatric: Denies anxiety, Denies depression Endocrine: Denies fatigue, Denies weight change Objective - Vital Signs Vital signs: Vital Signs Temp 98.3 F 05/22/19 05:00 Pulse 74 05/22/19 05:00 Resp 20 05/22/19 05:00 BP 89/54 05/22/19 05:00 Pulse Ox 90 L 05/22/19 05:00 Intake & Output 05/21/19 05/22/19 05/22/19 18:59 06:59 18:59 Intake Total 320 100 Output Total 650 300 Balance -330 -200 Intake: Intake, IV Titration 100 Amount Piperacillin-Tazobactam 3 100 .375 gm In Sodium Chloride 0.9% 100 ml @ 25 mls/hr IVPB Q8HR [facility] Rx# :[id number] Oral 220 100 Output: Urine 650 300 Other: Voiding Method Indwelling Catheter Indwelling Catheter - Exam Physical exam: General appearance: Obese, no distress - EENT Eyes: Reports EOMI, Reports PERRLA, Denies photophobia ENT: Reports hard of hearing, Reports NA/AT, Reports normal oropharynx, Denies thrush Ears: bilateral: normal - Neck Neck: Reports normal ROM, Denies lymphadenopathy, Denies stridor, Denies thyromegaly Carotids: bilateral: upstroke delayed Thyroid: bilateral: enlarged - Respiratory Respiratory: bilateral: diminished, negative: dullness, rales, rhonchi, wheezin g, prolonged expiration, prolonged inspiration - Cardiovascular Rhythm: regular Heart sounds: normal: S1, S2 Abnormal Heart Sounds: Reports systolic murmur (Systolic ejection murmur 2/6 located in the left sternal border), Reports S3 Gallop, Denies rub, Denies S4 Gallop, Denies click case monitor sinus rhythm - Gastrointestinal General gastrointestinal: Reports normal bowel sounds, nondistended, Reports soft, no tenderness, Denies hepatomegaly, Denies organomegaly, Denies rigid, Denies scaphoid, Denies splenomegaly, Denies umbilical hernia, - Integumentary Integumentary: Normal - Neurologic Neurologic: CNII-XII intact - Musculoskeletal Musculoskeletal: Reports generalized weakness, Reports left sided weakness, deformity of the left foot - Psychiatric Psychiatric: Reports A&O x's 2, noted short-term memory deficits, Reports appropriate affect, Reports intact judgment & insight - Labs CBC & Chem 7: 05/22/19 10:12 05/22/19 07:39 Labs: Microbiology - Last 24 Hours (Table) 05/20/19 07:15 Blood Culture - Preliminary Blood No Growth after 24 hours Assessment and Plan Assessment: Assessment and Plan Plan: 1. Atrial flutter with troponin leak without evidence of acute coronary syndrome. Continue patient on Lopressor 25 mg orally twice every day, propafenone 150 mg orally 2 times every day and Eliquis 2.5 mg orally twice every day. 2. Acute kidney injury with elevated creatinine. Avoid nephrotoxic agents. 3. Vascular dementia, stable. 4. Paroxysmal atrial fibrillation. Propafenone 150 mg 3 times daily and Eliquis 2.5 mg orally twice every day. 5. COPD without exacerbation. Continue DuoNeb treatments, Pulmicort 0.5 mg twice daily, Zosyn. Pulmonary consult appreciated. 6. Hypertension. Continue losartan 25 mg daily, Lasix 40 mg daily. 7. Hyperlipidemia. 8. Generalized osteoarthritis. 9. History of rheumatoid arthritis. 10. Hypothyroidism with large goiter, stable. 11. Peptic ulcer disease. 12. Parkinson's disease. Continue Sinemet 3 times daily, gabapentin 100 mg twice daily. 13. Meningioma. 14. Likely going back to on Friday
[2019-05-22] MEDS: FERROUS SULFATE 325 MG TAB PO SCH (16:26)
[2019-05-22] MEDS: MAGNESIUM OXIDE 400 MG TAB PO SCH (16:27)
[2019-05-23] MEDS: PIPERACILLIN-TAZOBACTAM 3.375 GM in SODIUM CHLORIDE 0.9% 100 ML IVPB SCH ×3 (00:11→15:58)
[2019-05-23] MEDS: BUDESONIDE 0.5 MG/2 ML NEBU INHALATION SCH ×2 (07:12→20:57)
[2019-05-23] MEDS: IPRATROPIUM-ALBUTEROL 3 ML NEB INHALATION SCH ×4 (07:12→20:57)
[2019-05-23] MEDS: HYDROcodone/APAP 5-325MG 1 EACH TAB PO PRN ×2 (09:15→14:15)
[2019-05-23] MEDS: GABAPENTIN 100 MG CAP PO SCH ×2 (09:16→15:59)
[2019-05-23] MEDS: PANTOPRAZOLE 40 MG TABLET PO SCH (09:17)
[2019-05-23] MEDS: APIXABAN 2.5 MG TABLET PO SCH ×2 (09:18→22:06)
[2019-05-23] MEDS: FUROSEMIDE 40 MG TAB PO SCH ×2 (09:18→15:55)
[2019-05-23] MEDS: KETOTIFEN 0.025% OPHTH DROPS 5 ML BTL BOTH EYES SCH ×2 (09:18→22:06)
[2019-05-23] MEDS: CARBIDOPA-LEVODOPA 25-100 MG 1 EACH TAB PO SCH ×3 (09:18→22:06)
[2019-05-23] MEDS: FLUoxetine HCL 20 MG CAP PO SCH (09:18)
[2019-05-23] MEDS: METOPROLOL TARTRATE 25 MG TAB PO SCH ×3 (09:19→22:10)
[2019-05-23] MEDS: POTASSIUM CHLORIDE ER 20 MEQ TAB.ER PO SCH (09:19)
[2019-05-23] MEDS: LOSARTAN 25 MG TAB PO SCH (09:19)
[2019-05-23] MEDS: PROPAFENONE 150 MG TAB PO SCH ×3 (09:20→22:06)
[2019-05-23 09:32] LABS: Basophils # (A) 0.1 k/uL (0-0.2); Basophils % (A) 2 %; Eosinophils # (A) 0.2 k/uL (0-0.7); Eosinophils % (A) 3 %; HCT 32.1 % (34.0-46.0); HGB 10.2 gm/dL (11.4-16.0); Hypochromasia Slight; Lymphocytes # (A) 0.5 k/uL (1.0-4.8); Lymphocytes % (A) 9 %; MCH 30.3 pg (25.0-35.0); MCHC 31.7 g/dL (31.0-37.0); MCV 95.7 fL (80.0-100.0); Mean Platelet Volume 6.8; Monocytes # (A) 0.5 k/uL (0-1.0); Monocytes % (A) 9 %; Neutrophils # (A) 4.6 k/uL (1.3-7.7); Neutrophils % (A) 76 %; Platelet Count 207 k/uL (150-450); RBC 3.35 m/uL (3.80-5.40); WBC 6.1 k/uL (3.8-10.6)
[2019-05-23 09:43] LABS: Albumin 3.3 g/dL (3.5-5.0); Total Bilirubin 0.7 mg/dL (0.2-1.3); Total Protein 5.9 g/dL (6.3-8.2)
--- NOTE | 2019-05-23 10:51 | P.PN ---
Subjective Progress Note Date: 05/23/19 This is an 83-year-old female patient of Dr. Rolle, long-term resident at [facility] with past medical history of vascular dementia, paroxysmal atrial fibrillation, hyperlipidemia, chronic obstructive pulmonary disease, osteoarthritis, rheumatoid arthritis, thyroid disorder, peptic ulcer disease, P arkinson disease, meningioma, DDD status post lumbar discectomy. Patient had elevated troponin, hypoxic and tachycardia and concern for pulmonary embolism at [facility] and patient was sent to [facility] for evaluation. Heart rate was 101, pulse ox 96% on room air, WBC 6.9, hemoglobin 11, BUN 48 creatinine 1.35 potassium 5.4, blood sugar 119. ProBNP 19,000. Troponin 0.091. Pelvic x-ray showed no acute abdomen illness. CAT scan angiogram of the chest showed no evidence of pulmonary embolism. Patchy infiltrate and atelectasis in the upper and lower lobes bilaterally that are increased. Interstitial fibrosis. Small pleural effusions unchanged. Bronchiectasis right lower lobe. Markedly enlarged left thyroid lobe consistent with multinodular goiter appears increased CAT SCAN. Patient is denying any chest pain or abdominal pain. She is a poor historian. She is pleasantly confused. Consult with Dr. Lewis and also consult with cardiology regarding elevated troponins. Echocardiogram has been ordered and barium swallow. Patient has been residing at [facility] for the past 4 years. She is wheelchair bound. She has a chronic cough and history of frequent urinary tract infections. 05/21: Pro calcitonin 0.15, TSH 2.44. Repeat BUN 37 creatinine 1.23. WBC 4.7, hemoglobin 9.9, platelet count 176. Patient remains afebrile, blood pressure 124/86, heart rate 60, pulse ox 100% on 2 L nasal cannula. Echocardiogram reveals normal left ventricular systolic function and moderate mitral regurgitation. Cardiology has signed off her case. Pulmonary medicine is recommended continuing her same medications. Modified barium swallow was completed with recommendations for checkup diet and aspiration precautions, no straws. Patient will be transferred to [facility] floor today. Anticipate discharge back to [facility] on Friday. 05/22: Patient is laying down in bed she appears to be weaker today with some hypotensive episodes over the last few hours, she was given wound bolus of normal saline 500 mL over 1 hour hold diuretics for today, hold antihypertensive medication for systolic blood pressure less than or equal to 110. 05/23: Patient is feeling better today she denies any chest pain less short of breath, continues to have minimal cough minimal from production, she will be likely discharged back to [facility] tomorrow morning. Review of Systems Constitutional: Denies chills, Denies fatigue, Denies fever, Denies poor appetite, Denies weight loss Eyes: denies blurred vision, denies pain Ears, nose, mouth and throat: Denies dental pain, Denies headache, Denies nasal congestion, denies difficulty swallowing, Denies sore throat, Denies vertigo Cardiovascular: Denies chest pain, Denies dyspnea on exertion, Denies edema, Denies leg edema, Denies shortness of breath, Denies syncope Respiratory: Denies congestion, Denies cough, Denies cough with sputum, Denies dyspnea, Denies excessive sputum, Denies hemoptysis, Denies wheezing Gastrointestinal: Denies abdominal pain, Denies diarrhea, Denies loss of appetite, Denies nausea, Denies vomiting Genitourinary: Denies dysuria, Denies hematuria Musculoskeletal: Reports gait dysfunction, Reports muscle weakness, Denies myalgias Integumentary: Denies pruritus, Denies rash, Denies wounds Neurological: Denies change in mentation, Denies change in speech, Denies numbness, Denies seizures, Denies weakness Psychiatric: Denies anxiety, Denies depression Endocrine: Denies fatigue, Denies weight change Objective - Vital Signs Vital signs: Vital Signs Temp 97.8 F 05/23/19 05:00 Pulse 88 05/23/19 07:12 Resp 18 05/23/19 05:00 BP 117/66 05/23/19 05:00 Pulse Ox 93 L 05/23/19 05:00 Intake & Output 05/22/19 05/23/19 05/23/19 18:59 06:59 18:59 Intake Total 900 350 Output Total 400 400 Balance 500 -50 Intake: Oral 900 350 Output: Urine 400 400 Other: Voiding Method Indwelling Catheter Indwelling Catheter - Exam Physical exam: General appearance: Obese, no distress - EENT Eyes: Reports EOMI, Reports PERRLA, Denies photophobia ENT: Reports hard of hearing, Reports NA/AT, Reports normal oropharynx, Denies thrush Ears: bilateral: normal - Neck Neck: Reports normal ROM, Denies lymphadenopathy, Denies stridor, Denies thyromegaly Carotids: bilateral: upstroke delayed Thyroid: bilateral: enlarged - Respiratory Respiratory: bilateral: diminished, negative: dullness, rales, rhonchi, wheezing, prolonged expiration, prolonged inspiration - Cardiovascular Rhythm: regular Heart sounds: normal: S1, S2 Abnormal Heart Sounds: Reports systolic murmur (Systolic ejection murmur 2/6 located in the left sternal border), Reports S3 Gallop, Denies rub, Denies S4 Gallop, Denies click monitoring tech sinus rhythm - Gastrointestinal General gastrointestinal: Reports normal bowel sounds, nondistended, Reports soft, no tenderness, Denies hepatomegaly, Denies organomegaly, Denies rigid, Denies scaphoid, Denies splenomegaly, Denies umbilical hernia, - Integumentary Integumentary: Normal - Neurologic Neurologic: CNII-XII intact - Musculoskeletal Musculoskeletal: Reports generalized weakness, Reports left sided weakness, deformity of the left foot - Psychiatric Psychiatric: Reports A&O x's 2, noted short-term memory deficits, Reports appropriate affect, Reports intact judgment & insight - Labs CBC & Chem 7: 05/23/19 08:32 05/23/19 08:32 Labs: Abnormal Lab Results - Last 24 Hours (Table) 05/22/19 05/22/19 Range/Units 07:39 10:12 RBC 3.52 L (3.80-5.40) m/uL Hgb 10.7 L (11.4-16.0) gm/dL Lymphocytes # 0.6 L (1.0-4.8) k/uL BUN 41 H (7-17) mg/dL Creatinine 1.32 H (0.52-1.04) mg/dL Alkaline Phosphatase 31 L (38-126) U/L Total Protein 5.7 L (6.3-8.2) g/dL Albumin 3.2 L (3.5-5.0) g/dL Microbiology - Last 24 Hours (Table) 05/20/19 07:15 Blood Culture - Preliminary Blood No Growth after 48 hours Assessment and Plan Assessment: Assessment and Plan Plan: 1. Atrial flutter with troponin leak without evidence of acute coronary syndrome. Continue patient on Lopressor 25 mg orally twice every day, propafenone 150 mg orally 2 times every day and Eliquis 2.5 mg orally twice every day. 2. Acute kidney injury with elevated creatinine. Avoid nephrotoxic agents. 3. Vascular dementia, stable. 4. Paroxysmal atrial fibrillation. Propafenone 150 mg 3 times daily and Eliquis 2.5 mg orally twice every day. 5. COPD without exacerbation. Continue DuoNeb treatments, Pulmicort 0.5 mg twice daily, Zosyn. Pulmonary consult appreciated. 6. Hypertension. Continue losartan 25 mg daily, Lasix 40 mg daily. 7. Hyperlipidemia. 8. Generalized osteoarthritis. 9. History of rheumatoid arthritis. 10. Hypothyroidism with large goiter, stable. 11. Peptic ulcer disease. 12. Parkinson's disease. Continue Sinemet 3 times daily, gabapentin 100 mg twice daily. 13. Meningioma. 14. Likely going back to [facility] on Friday
--- NOTE | 2019-05-23 13:52 | P.PN ---
Subjective Progress Note Date: 05/23/19 This 83-year-old white female patient of Dr. Rolle, resident of [facility], has a past medical history of vascular dementia, paroxysmal atrial fibrillation, not on any chronic anticoagulation, hypothyroidism, hyperlipidemia, COPD, rheumatoid arthritis, peptic ulcer disease, Parkinson's disease, degenerative disc disease, who was brought in to the hospital from [facility] per EMS for evaluation of hypoxemia, and tachycardia, and concern for pulmonary embolism. CT angios chest was completed showing no evidence of pulmonary embolism, it did show patchy infiltration and atelectatic changes in the upper and lower lobes bilaterally, pulmonary interstitial prominence, small pleural effusions, and markedly enlarged left thyroid lobe consistent with multinodular goiter. Lab work reviewed showing no leukocytosis, with a white blood cell count of 6.9, hemoglobin of 11.0, sodium of 137, potassium of 5.4, chloride is 100, CO2 is 29, BUN is 48, creatinine is 1.35 plasma lactic acid is 1.0, troponins were 0.091, 0.077, and 0.071, BNP was significantly elevated at 19,000, urinalysis was without any evidence of infection, TSH was within normal limits at 2.44. Doubt underlying pneumonia, nevertheless patient was started on empiric antibiotics, cardiology has also evaluated the patient, echocardiogram with Doppler study is pending, she has been started on IV diuretics, and oral anticoagulation in the form of Eliquis for paroxysmal atrial fibrillation. The patient was seen today 05/21/2019 in follow-up on the regular medical floor. She is awake and alert in no acute distress. She is maintaining good O2 saturations in the mid 90s on 2 L/m per nasal cannula. She's been afebrile. White count 4.7. Hemoglobin 9.9. Creatinine 1.23. She remains on DuoNeb inhalations, Pulmicort and Perforomist inhalations, Zosyn. Anticoagulated with Eliquis. On today's evaluation of 05/22/2019 the patient is on a medical floor. She is on oxygen at 2 L per minute. She did have some lower blood pressure earlier this morning and based on that the diuretics. And the patient is receiving a bolus of 500 mL of fluid. She is on IV Zosyn. She is aspiration precaution. Swallow evaluation was done. Echo showed a preserved LV function without any significant valvular heart disease or LV dysfunction. She remains on IV Zosyn. The white count is not elevated at 6.0. Creatinine stable at 1.3. The pro- calcitonin level was moderately elevated at 0.15. She did not having fever at time of admission. Today's evaluation of 05/23/2019 the patient is looking well. No specific complaints. Insulin dosing CVP is under good control. Swallowing food okay. Renal function is normalized. No other complaints otherwise for now. Oxygenation is also improved. Other significant events overnight. Objective - Vital Signs Vital signs: Vital Signs Temp 97.8 F 05/23/19 05:00 Pulse 76 05/23/19 11:31 Resp 18 05/23/19 05:00 BP 117/66 05/23/19 05:00 Pulse Ox 93 L 05/23/19 05:00 Intake & Output 05/22/19 05/23/19 05/23/19 18:59 06:59 18:59 Intake Total 900 350 120 Output Total 400 400 Balance 500 -50 120 Intake: Oral 900 350 120 Output: Urine 400 400 Other: Voiding Method Indwelling Catheter Indwelling Catheter - Exam GENERAL EXAM: Alert, pleasant, 83-year-old female patient, on 2 L of oxygen with a pulse of 95% comfortable in no apparent distress. HEAD: Normocephalic/atraumatic. EYES: Normal reaction of pupils, equal size. Conjunctiva pink, sclera white. NOSE: Clear with pink turbinates. THROAT: No erythema or exudates. NECK: No masses, no JVD, no thyroid enlargement, no adenopathy. CHEST: No chest wall deformity. Symmetrical expansion. LUNGS: Equal air entry with minimal crackles at bilateral bases CVS: Regular rate and rhythm, normal S1 and S2, no gallops, no murmurs, no rubs ABDOMEN: Soft, nontender. No hepatosplenomegaly, normal bowel sounds, no guarding or rigidity. EXTREMITIES: No clubbing, no edema, no cyanosis, 2+ pulses and upper and lower extremities. MUSCULOSKELETAL: Muscle strength and tone normal. SPINE: No scoliosis or deformity SKIN: No rashes CENTRAL NERVOUS SYSTEM: No focal deficits, tone is normal in all 4 extremities. PSYCHIATRIC: Alert and oriented -3. Appropriate affect. Intact judgment and insight. - Labs CBC & Chem 7: 05/23/19 08:32 05/23/19 08:32 Labs: Abnormal Lab Results - Last 24 Hours (Table) 05/23/19 05/23/19 Range/Units 08:32 08:32 RBC 3.35 L (3.80-5.40) m/uL Hgb 10.2 L (11.4-16.0) gm/dL Hct 32.1 L (34.0-46.0) % Lymphocytes # 0.5 L (1.0-4.8) k/uL BUN 36 H (7-17) mg/dL Creatinine 1.24 H (0.52-1.04) mg/dL Glucose 110 H (74-99) mg/dL Total Protein 5.9 L (6.3-8.2) g/dL Albumin 3.3 L (3.5-5.0) g/dL Microbiology - Last 24 Hours (Table) 05/20/19 07:15 Blood Culture - Preliminary Blood No Growth after 72 hours Assessment and Plan Plan: #1. Acute hypoxemic respiratory failure related to acute exacerbation of congestive heart failure him a probably a component of diastolic dysfunction. There is also a vague infiltration of the right lung along with some mild elevation of the pro-calcitonin and for that reason the patient is on IV Zosyn. She is also on aspiration precaution risks and swallow evaluation was noted. Echocardiogram was also noted. She does have some dysphagia. #2. Elevated troponins, without significant rise and fall, and without acute ischemic changes on the EKG #3. Paroxysmal atrial fibrillation, currently in sinus rhythm #4. Hypertension #5. Hyperlipidemia #6. COPD, early stable #7. Vascular dementia #8. Osteoarthritis #9. Rheumatoid arthritis #10. Thyroid disorder, and CTA chest showed markedly enlarged left thyroid lobe consistent with multinodular goiter #11. DJD #12. Patient is a resident of long-term care facility #13. Chronic kidney disease stage II #14. Parkinson's disease plan Patient is improved considerably. No major respiratory distress. Swallowing well. Her blood pressures under good control. Adjustments made by Dr. Rolle was noted. The patient is likely going back tomorrow with on Friday. She is on aspiration precautions at this point in time. She is continuing to be on IV Zosyn.
[2019-05-23] MEDS: FERROUS SULFATE 325 MG TAB PO SCH (15:55)
[2019-05-23] MEDS: MAGNESIUM OXIDE 400 MG TAB PO SCH (15:55)
[2019-05-24] MEDS: PIPERACILLIN-TAZOBACTAM 3.375 GM in SODIUM CHLORIDE 0.9% 100 ML IVPB SCH ×2 (00:09→09:06)
[2019-05-24 05:00] VITALS: RESP 22; TEMP 96.8
[2019-05-24] MEDS: IPRATROPIUM-ALBUTEROL 3 ML NEB INHALATION SCH ×2 (07:59→12:09)
[2019-05-24] MEDS: BUDESONIDE 0.5 MG/2 ML NEBU INHALATION SCH (07:59)
[2019-05-24] MEDS: GABAPENTIN 100 MG CAP PO SCH (09:08)
[2019-05-24] MEDS: APIXABAN 2.5 MG TABLET PO SCH (09:08)
[2019-05-24] MEDS: POTASSIUM CHLORIDE ER 20 MEQ TAB.ER PO SCH (09:09)
[2019-05-24] MEDS: FUROSEMIDE 40 MG TAB PO SCH (09:09)
[2019-05-24] MEDS: PANTOPRAZOLE 40 MG TABLET PO SCH (09:09)
[2019-05-24] MEDS: CARBIDOPA-LEVODOPA 25-100 MG 1 EACH TAB PO SCH (09:09)
[2019-05-24] MEDS: FLUoxetine HCL 20 MG CAP PO SCH (09:09)
[2019-05-24] MEDS: PROPAFENONE 150 MG TAB PO SCH (09:11)
[2019-05-24] MEDS: KETOTIFEN 0.025% OPHTH DROPS 5 ML BTL BOTH EYES SCH (09:11)
[2019-05-24 09:15] VITALS: BP 116/67
[2019-05-24] MEDS: METOPROLOL TARTRATE 25 MG TAB PO SCH (09:15)
[2019-05-24] MEDS: LOSARTAN 25 MG TAB PO SCH (09:15)
--- NOTE | 2019-05-24 09:32 | P.DS ---
Providers Date of admission: 05/19/19 21:13 Expected date of discharge: 05/24/19 Attending physician: Kimi Young Consults: 05/19/19 21:12 Consult Physician Routine Consulting Provider: Mario Ag Consult Reason/Comments: elevated troponin Do you want consulting provider notified?: Yes Consult Physician Routine Consulting Provider: Sandro Lewis Consult Reason/Comments: pneumonia Do you want consulting provider notified?: Yes Primary care physician: Maico Rolle [place] [facility] Course: This is an 83-year-old female patient of Dr. Rolle, long-term resident at [facility] with past medical history of vascular dementia, paroxysmal atrial fibrillation, hyperlipidemia, chronic obstructive pulmonary disease, osteoarthritis, rheumatoid arthritis, thyroid disorder, peptic ulcer disease, Parkinson disease, meningioma, DDD status post lumbar discectomy. Patient had elevated troponin, hypoxic and tachycardia and concern for pulmonary embolism at [facility] and patient was sent to [facility] for evaluation. Heart rate was 101, pulse ox 96% on room air, WBC 6.9, hemoglobin 11, BUN 48 creatinine 1.35 potassium 5.4, blood sugar 119. ProBNP 19,000. Troponin 0.091. Pelvic x-ray showed no acute abdomen illness. CAT scan angiogram of the chest showed no evidence of pulmonary embolism. Patchy infiltrate and atelectasis in the upper and lower lobes bilaterally that are increased. Interstitial fibrosis. Small pleural effusions unchanged. Bronchiectasis right lower lobe. Markedly enlarged left thyroid lobe consistent with multinodular goiter appears increased CAT SCAN. Patient is denying any chest pain or abdominal pain. She is a poor historian. She is pleasantly confused. Consult with Dr. Lewis and also consult with cardiology regarding elevated troponins. Echocardiogram has been ordered and barium swallow. Patient has been residing at [facility] for the past 4 years. She is wheelchair bound. She has a chronic cough and history of frequent urinary tract infections. 05/21: Pro calcitonin 0.15, TSH 2.44. Repeat BUN 37 creatinine 1.23. WBC 4.7, hemoglobin 9.9, platelet count 176. Patient remains afebrile, blood pressure 124/86, heart rate 60, pulse ox 100% on 2 L nasal cannula. Echocardiogram reveals normal left ventricular systolic function and moderate mitral regurgitation. Cardiology has signed off her case. Pulmonary medicine is recommended continuing her same medications. Modified barium swallow was completed with recommendations for checkup diet and aspiration precautions, no straws. [facility]. Anticipate discharge back to [facility] on Friday. 05/22: Patient is laying down in bed she appears to be weaker today with some hypotensive episodes over the last few hours, she was given wound bolus of normal saline 500 mL over 1 hour hold diuretics for today, hold antihypertensive medication for systolic blood pressure less than or equal to 110. 05/23: Patient is feeling better today she denies any chest pain less short of breath, continues to have minimal cough minimal from production, she will be likely discharged back to [facility] tomorrow morning. 05/24: Patient has been afebrile, heart rate 78, blood pressure 99/68, pulse ox 97% on 3 L nasal cannula. Blood culture no growth at 72 hours. The patient has had no difficulties overnight. She still has Baker catheter in for retention which will be maintained and [facility] will remove this at a later time. Patient will be discharged back to [facility] today in stable condition. Discharge diagnoses: 1. Atrial flutter with troponin leak without evidence of acute coronary syndrome. 2. Acute kidney injury with elevated creatinine. 3. Vascular dementia, stable. 4. Paroxysmal atrial fibrillation. 5. COPD without exacerbation. 6. Hypertension. 7. Hyperlipidemia. 8. Generalized osteoarthritis. 9. History of rheumatoid arthritis. 10. Hypothyroidism with large goiter, stable. 11. Peptic ulcer disease. 12. Parkinson's disease. 13. Meningioma. 14. Urinary retention requiring Discharge plan: Return to [facility] under the care of Dr. Rolle. Impression and plan of care have been directed as dictated by the signing physician. Brenda Lopez nurse practitioner acting as scribe for signing physician. Patient Condition at Discharge: Serious Plan - Discharge Summary New Discharge Prescriptions: New Amoxicillin/Potassium Clav [Augmentin 500-125 Tablet] 1 tab PO Q12HR #6 tab Apixaban [Eliquis] 2.5 mg PO BID tablet Metoprolol Tartrate [Lopressor] 25 mg PO BID tab Continue Propafenone HCl 150 mg PO TID@0800,1400,2100 Ipratropium/Albuterol Sulfate [Duoneb 0.5 mg-3 mg/3 ml Soln] 3 ml INHALATION RT-QID Multivitamins, Thera [Multivitamin (formulary)] 1 tab PO DAILY@1700 Ferrous Sulfate [Feosol] 325 mg PO DAILY@1700 FLUoxetine HCL 40 mg PO DAILY Acetaminophen [Tylenol] 650 mg PO Q4H PRN PRN Reason: Fever And/ Or Pain Pantoprazole Sodium [Protonix] 40 mg PO DAILY #30 tab Cholecalciferol [Vitamin D3 (25 Mcg = 1000 Iu)] 1,000 unit PO DAILY@1700 Carbidopa-Levodopa 25-100 mg [Sinemet 25-100 mg] 1 tab PO TID@0800,1400,2100 Potassium Chloride ER [K-Dur 20] 20 meq PO DAILY L.acidoph,Paracasei, B.lactis [Probiotic] 1 cap PO DAILY@1700 Magnesium Oxide [Magox 400] 400 mg PO DAILY@1700 Magnesium Hydroxide [Milk of Magnesia Concentrate] 7,200 mg PO DAILY PRN PRN Reason: Constipation Mag Hydrox/Al Hydrox/Simeth [Maalox] 15 ml PO QID PRN PRN Reason: Gi Upset Losartan [Cozaar] 25 mg PO DAILY Na Phos,M-B/Na Phos,Di-Ba [Fleet Adult] 133 ml RECTAL DAILY PRN PRN Reason: Constipation Fluticasone Propionate [Flovent Hfa 110 mcg] 1 puff INHALATION RT- BID@0800,1700 Fluticasone Nasal [place] [Flonase Nasal [place]] 1 spray EA NOSTRIL DAILY PRN PRN Reason: Allergy Symptoms Loratadine [Claritin] 10 mg PO DAILY Bisacodyl [Dulcolax] 10 mg RECTAL DAILY PRN PRN Reason: Constipation Albuterol Nebulized [Ventolin Nebulized] 2.5 mg INHALATION RT-Q4H PRN PRN Reason: Shortness Of Breath Budesonide [Pulmicort] 0.5 mg INHALATION RT-BID guaiFENesin [Mucinex] 600 mg PO Q12H Olopatadine HCl [Pataday] 1 drop BOTH EYES DAILY Ipratropium-Albuterol Nebulize [Duoneb 0.5 mg-3 mg/3 ml Soln] 3 ml INHALATION RT-Q6H PRN PRN Reason: Shortness Of Breath Gabapentin [Neurontin] 100 mg PO BID@0800,1700 #6 cap HYDROcodone/APAP 5-325MG [Gary 5-325] 1 tab PO Q4HR PRN #18 tab PRN Reason: Moderate Pain HYDROcodone/APAP 5-325MG [[place] 5-325] 1 tab PO HS@2100 #3 tab Changed Furosemide [Lasix] 40 mg PO BID@0900,1600 #0 Discontinued Levofloxacin [Levaquin] 250 mg PO DAILY@1900 Discharge Medication List Acetaminophen [Tylenol] 650 mg PO Q4H PRN 02/06/14 [History] FLUoxetine HCL 40 mg PO DAILY 02/06/14 [History] Ferrous Sulfate [Feosol] 325 mg PO DAILY@169902/06/14 [History] Ipratropium/Albuterol Sulfate [Duoneb 0.5 mg-3 mg/3 ml Soln] 3 ml INHALATION RT- QID 02/06/14 [History] Multivitamins, Thera [Multivitamin (formulary)] 1 tab PO DAILY@169902/06/14 [History] Propafenone HCl 150 mg PO TID@0800,1400,209902/06/14 [History] Pantoprazole Sodium [Protonix] 40 mg PO DAILY #30 tab 04/19/14 [Rx] Bisacodyl [Dulcolax] 10 mg RECTAL DAILY PRN 01/03/19 [History] Carbidopa-Levodopa 25-100 mg [Sinemet 25-100 mg] 1 tab PO TID@0800,1400,209901/03/19 [History] Cholecalciferol [Vitamin D3 (25 Mcg = 1000 Iu)] 1,000 unit PO DAILY@169901/03/19 [History] Fluticasone Nasal [place] [Flonase Nasal [place]] 1 spray EA NOSTRIL DAILY PRN 01/03/19 [History] Fluticasone Propionate [Flovent Hfa 110 mcg] 1 puff INHALATION RT-BID@0800,169901/03/19 [History] L.acidoph,Paracasei, B.lactis [Probiotic] 1 cap PO DAILY@169901/03/19 [History] Loratadine [Claritin] 10 mg PO DAILY 01/03/19 [History] Losartan [Cozaar] 25 mg PO DAILY 01/03/19 [History] Mag Hydrox/Al Hydrox/Simeth [Maalox] 15 ml PO QID PRN 01/03/19 [History] Magnesium Hydroxide [Milk of Magnesia Concentrate] 7,200 mg PO DAILY PRN 01/03/19 [History] Magnesium Oxide [Magox 400] 400 mg PO DAILY@1700 01/03/19 [History] Na Phos,M-B/Na Phos,Di-Ba [Fleet Adult] 133 ml RECTAL DAILY PRN 01/03/19 [History] Potassium Chloride ER [K-Dur 20] 20 meq PO DAILY 01/03/19 [History] Albuterol Nebulized [Ventolin Nebulized] 2.5 mg INHALATION RT-Q4H PRN 05/19/19 [History] Budesonide [Pulmicort] 0.5 mg INHALATION RT-BID 05/19/19 [History] Ipratropium-Albuterol Nebulize [Duoneb 0.5 mg-3 mg/3 ml Soln] 3 ml INHALATION RT-Q6H PRN 05/19/19 [History] Olopatadine HCl [Pataday] 1 drop BOTH EYES DAILY 05/19/19 [History] guaiFENesin [Mucinex] 600 mg PO Q12H 05/19/19 [History] Amoxicillin/Potassium Clav [Augmentin 500-125 Tablet] 1 tab PO Q12HR #6 tab 05/24/19 [Rx] Apixaban [Eliquis] 2.5 mg PO BID tablet 05/24/19 [Rx] Furosemide [Lasix] 40 mg PO BID@0900,1600 #0 05/24/19 [Rx] Gabapentin [Neurontin] 100 mg PO BID@0800,1700 #6 cap 05/24/19 [Rx] HYDROcodone/APAP 5-325MG [Gary 5-325] 1 tab PO HS@2100 #3 tab 05/24/19 [Rx] HYDROcodone/APAP 5-325MG [Gary 5-325] 1 tab PO Q4HR PRN #18 tab 05/24/19 [Rx] Metoprolol Tartrate [Lopressor] 25 mg PO BID tab 05/24/19 [Rx] Follow up Appointment(s)/Referral(s): Maico Rolle MD [Primary Care Provider] - 1 Week (At [facility]) Activity/Diet/Wound Care/Special Instructions: Maintain Baker and this may be removed at [facility]. Discharge Disposition: TRANSFER TO SNF/ECF
[2019-05-24 12:18] VITALS: PULSE 74
--- NOTE | 2019-05-28 13:37 | CDI ---
Documentation Clarification Form Date: 05/28/19 From: Latricia Thorne Phone: If you have a question about this query, please contact Karen Valdes, Workforce Management Coordinator at [phone] between 8am and 5pm. Admit Date: 05/19/19 Discharge Date: 05/24/19 Patient Name: Yolie Woodall Visit Number: [id number] ATTENTION: The Clinical Documentation Specialists (CDI) and [facility] Coding Staff appreciate your assistance in clarifying documentation. Please respond to the clarification below the line at the bottom and electronically sign. The CDI & [facility] Coding staff will review the response and follow-up if needed. Please note: Queries are made part of the Legal Health Record. If you have any questions, please contact the author of this message via ITS. Dear Dr Rolle Atrial Flutter with troponin leak is documented in the discharge summary, your 05/22 and 05/23 progress notes and in the past medical history.. History/Risk factors: Hypertension, CHF, Hypothyroidism, COPD Clinical Indicators: Shortness of breath EKG/telemetry: Sinus tachycardia, left axis deviation, LV hypertrophy with QRS widening and repolarization abnormality. Treatment: PO Rythmol Consults: Abnormal troponins, likely secondary to hypoxia or pneumonia, CHF. Also documented atrial flutter in their past medical history. In your professional opinion, in order to capture the severity of condition; can you please clarify the type of Atrial Flutter if known? Typical/Type I Atypical/Type II Other, please specify Unable to determine Atypical type II MTDD
== END 2019-05-24 13:23 | DRG 308 ==
LOC: EC 18:51 → 3SCARD 21:13 → 4MS4W 05-21 14:55
PROVIDERS: ADMIT Family Medicine; ATTEND Family Medicine
DX: I48.4 Atypical atrial flutter (principal); I50.33 Acute on chronic diastolic (congestive) heart failure; J96.01 Acute respiratory failure with hypoxia; I13.0 Hypertensive heart and chronic kidney disease with heart failure and stage 1 through stage 4 chronic kidney disease, or unspecified chronic kidney disease; J98.11 Atelectasis; N17.9 Acute kidney failure, unspecified; I95.9 Hypotension, unspecified; J44.9 Chronic obstructive pulmonary disease, unspecified; G20 Parkinson's disease; I34.0 Nonrheumatic mitral (valve) insufficiency; I48.0 Paroxysmal atrial fibrillation; M06.9 Rheumatoid arthritis, unspecified; F01.50 Vascular dementia, unspecified severity, without behavioral disturbance, psychotic disturbance, mood disturbance, and anxiety; D32.9 Benign neoplasm of meninges, unspecified; E03.9 Hypothyroidism, unspecified; E04.2 Nontoxic multinodular goiter; E78.5 Hyperlipidemia, unspecified; K21.9 Gastro-esophageal reflux disease without esophagitis; M15.9 Polyosteoarthritis, unspecified; N18.2 Chronic kidney disease, stage 2 (mild); N32.81 Overactive bladder; F32.9 Major depressive disorder, single episode, unspecified; G89.29 Other chronic pain; R33.9 Retention of urine, unspecified; R32 Unspecified urinary incontinence; F41.9 Anxiety disorder, unspecified; R79.89 Other specified abnormal findings of blood chemistry; E66.9 Obesity, unspecified; Z68.32 Body mass index [BMI] 32.0-32.9, adult; Z79.51 Long term (current) use of inhaled steroids; Z79.899 Other long term (current) drug therapy; Z79.891 Long term (current) use of opiate analgesic; Z88.7 Allergy status to serum and vaccine; Z90.49 Acquired absence of other specified parts of digestive tract; Z87.11 Personal history of peptic ulcer disease; Z87.440 Personal history of urinary (tract) infections; Z90.710 Acquired absence of both cervix and uterus; Z96.653 Presence of artificial knee joint, bilateral; Z99.3 Dependence on wheelchair; Z86.14 Personal history of Methicillin resistant Staphylococcus aureus infection; Z82.49 Family history of ischemic heart disease and other diseases of the circulatory system
CPT/HCPCS: 36415; 71275; 72170; 74230; 80053; 81003; 83605; 83735; 83880; 84145; 84443; 84484; 85025; 85610; 85730; 87040; 93005; 93306; 94640; 94760; 96365; 99285

== ENCOUNTER 2019-06-03 11:00 | Inpatient (IN) | payer MEDICARE, OTHER ==
--- NOTE | 2019-06-03 11:41 | ED ---
General Adult HPI - General Source: patient Mode of arrival: EMS Limitations: no limitations <Tacos Shane - Last Filed: 06/03/19 16:51> <Wally Mckenna - Last Filed: 06/03/19 18:03> - General Chief complaint: Extremity Injury, Lower Stated complaint: Femur fracture Time Seen by Provider: 06/03/19 11:12 - History of Present Illness Initial comments: Dictation was produced using [employer] dictation software. please excuse any grammatical, word or spelling errors. Chief Complaint: 83-year-old female brought in for left knee fracture. History of Present Illness: 83 old female presents today with abnormal x-ray of the left knee. Radiology read shows fractures that are periprosthetic to the left for more condyle. Patient had x-rays performed of the left knee yesterday showing fractures. She was sent in from [facility]. More history was obtained from [facility] and [facility] states that there is no history of her falling however she denied left knee ongoing for several days now. She is a history of dementia. They're not concerned about her mental status. Patient is a poor historian at this time. Chart review does not show were patient had knee replacements performed. The ROS documented in this emergency department record has been reviewed and confirmed by me. Those systems with pertinent positive or negative responses have been documented in the HPI. All other systems are other negative and/or noncontributory. PHYSICAL EXAM: General Impression: Alert and oriented x3, not in acute distress, debilitated, poor muscle bulk HEENT: Normocephalic atraumatic, extra-ocular movements intact, pupils equal and reactive to light bilaterally, mucous membranes moist. Cardiovascular: Heart regular rate and rhythm, S1&S2 audible, no murmurs, rubs or gallops Chest: Lungs clear to auscultation bilaterally, no rhonchi, no wheeze, no rales Abdomen: Bowel sounds present, abdomen soft, non-tender, non-distended, no organomegaly Musculoskeletal: Pulses present and equal in all extremities, no peripheral edema, tenderness to manipulation of the left knee Motor: no focal deficits noted Neurological: CN II-XII grossly intact, no focal motor or sensory deficits noted Skin: Intact with no visualized rashes Psych: Normal affect and mood ED course: 83-year-old female presents with abnormal x-ray of the left knee. Vital signs upon arrival are within acceptable limits. Laboratory evaluation obtained. Hemoccult was stable. Labs are grossly unremarkable. Computed tomography scan of the head and C-spine shows no acute processes. Chest x-ray is unremarkable. X-ray shows tomorrow condyle fractures periprosthetic Shekhar to the left knee area. Hip x-ray shows subcapital fracture of the rectum or neck. Pelvis x-ray shows no fractures. Daughter at bedside. More history was obtained. She allegedly had total knee replacement bilaterally performed several years ago by a orthopedic surgeon that no longer works. Discussed patient case with kathy Ma who was on-call for orthopedic surgery who will speak with her attending.Discussed patient case with kathy Ma who requested CT of the knee be performed. CT of the knee was performed. Discussed patient case again with orthopedic surgery. Francesca reports that Dr. Woodall will come down and personally evaluated the patient and determine final disposition further plans of care. Patient care is signed out to Dr. Mckenna for follow-up of or though recommendations. Please refer to Dr. Mckenna's documentation for follow-up of further care and final disposition. EKG interpretation: Ventricular rate 74, normal sinus rhythm,. Interval and 60, Q's 1:30, QTC 477. No LA prolongation, no QTC prolongation, no ST or T-wave changes noted. EKG compared to 05/19/2019 showing no changes. Overall, this EKG is unremarkable (Tacos Shane) - Related Data Home Medications Medication Instructions Recorded Confirmed Acetaminophen [Tylenol] 650 mg PO Q4H PRN 02/06/14 06/03/19 FLUoxetine HCL 40 mg PO DAILY@0800 02/06/14 06/03/19 Ferrous Sulfate [Feosol] 325 mg PO DAILY@1700 02/06/14 06/03/19 Multivitamins, Thera [Multivitamin 1 tab PO DAILY@169902/06/14 06/03/19 (formulary)] Propafenone HCl 150 mg PO TID@0800,1200,1700 02/06/14 06/03/19 Bisacodyl [Dulcolax] 10 mg RECTAL DAILY PRN 01/03/19 06/03/19 Carbidopa-Levodopa 25-100 mg 1 tab PO TID@0800,1400,2100 06/02/19 10/31/19 [Sinemet 25-100 mg] Cholecalciferol [Vitamin D3 (25 1,000 unit PO DAILY@1700 01/03/19 06/03/19 Mcg = 1000 Iu)] Fluticasone Nasal [place] [Flonase 1 spray EA NOSTRIL DAILY PRN 01/03/19 06/03/19 Nasal [place]] Fluticasone Propionate [Flovent 1 puff INHALATION RT-BID@0800,1700 01/03/19 06/03/19 Hfa 110 mcg] L.acidoph,Paracasei, B.lactis 1 cap PO DAILY@0800 01/03/19 06/03/19 [Probiotic] Loratadine [Claritin] 10 mg PO DAILY@0800 01/03/19 06/03/19 Losartan [Cozaar] 25 mg PO DAILY@0800 01/03/19 06/03/19 Mag Hydrox/Al Hydrox/Simeth 15 ml PO QID PRN 01/03/19 06/03/19 [Maalox] Magnesium Hydroxide [Milk of 7,200 mg PO DAILY PRN 01/03/19 06/03/19 Magnesia Concentrate] Magnesium Oxide [Magox 400] 400 mg PO DAILY@169901/03/19 06/03/19 Na Phos,M-B/Na Phos,Di-Ba [Fleet 133 ml RECTAL DAILY PRN 01/03/19 06/03/19 Adult] Potassium Chloride ER [K-Dur 20] 20 meq PO DAILY@0800 01/03/19 06/03/19 Albuterol Nebulized [Ventolin 2.5 mg INHALATION RT-Q4H PRN 05/19/19 06/03/19 Nebulized] Budesonide [Pulmicort] 0.5 mg INHALATION RT-BID@0800,1700 05/19/19 06/03/19 Ipratropium-Albuterol Nebulize 3 ml INHALATION RT-Q6H PRN 05/19/19 06/03/19 [Duoneb 0.5 mg-3 mg/3 ml Soln] Olopatadine HCl [Pataday] 1 drop BOTH EYES DAILY@0800 05/19/19 06/03/19 Apixaban [Eliquis] 2.5 mg PO DAILY@1700 06/03/19 06/03/19 Furosemide [Lasix] 40 mg PO BID@0900,1700 06/03/19 06/03/19 Metoprolol Tartrate [Lopressor] 25 mg PO BID@0800,1700 06/03/19 06/03/19 Pantoprazole Sodium [Protonix] 40 mg PO DAILY@0600 06/03/19 06/03/19 Previous Rx's Medication Instructions Recorded Gabapentin [Neurontin] 100 mg PO BID@0800,1700 #6 cap 05/24/19 HYDROcodone/APAP 5-325MG [[place] 1 tab PO HS@2100 #3 tab 05/24/19 5-325] HYDROcodone/APAP 5-325MG [[place] 1 tab PO Q4HR PRN #18 tab 05/24/19 5-325] Allergies Allergy/AdvReac Type Severity Reaction Status Date / Time pneumococcal vaccine Allergy Rash/Hives Verified 06/03/19 11:29 Review of Systems ROS Other: All systems not noted in ROS Statement are negative. <Tacos Shane - Last Filed: 06/03/19 16:51> ROS Other: All systems not noted in ROS Statement are negative. <Wally Mckenna - Last Filed: 06/03/19 18:03> ROS Statement: Those systems with pertinent positive or pertinent negative responses have been documented in the HPI. Past Medical History Past Medical History: Atrial Fibrillation, Atrial Flutter, COPD, Dementia, GERD/Reflux, GI Bleed, Hyperlipidemia, Memory Impairment, Osteoarthritis (OA), Rheumatoid Arthritis (RA), Thyroid Disorder Additional Past Medical History / Comment(s): A. fib/A flutter, COPD, hyperlipidemia, vascular dementia, osteoarthritis, RA, overactive bladder, Parkinson disease, depression, chronic kidney disease stage II, left thyroid nodule, meningioma,. chronic low back pain status post recent L5-S1 discectomy with removal of epidural mass. Last Myocardial Infarction Date:: I thyroid left nodule diagnosed October 2012 suspected goiter, meningioma History of Any Multi-Drug Resistant Organisms: MRSA Date of last positivie culture/infection: 2012 MDRO Source:: unknown Past Surgical History: Appendectomy, Back Surgery, Cholecystectomy, Hysterectomy, Orthopedic Surgery Additional Past Surgical History / Comment(s): multiple leg surgeries, bladder prolapse surgery, bilateral total knee arthroplasty, lumbar laminectomy L5-S1 discectomy with epidural mass resection 02/17/[address] Cosby, appendectomy,. cholecystectomy, hysterectomy orthopedic surgery. Past Anesthesia/Blood Transfusion Reactions: No Reported Reaction Past Psychological History: No Psychological Hx Reported, Anxiety, Depression Smoking Status: Never smoker Past Alcohol Use History: None Reported Past Drug Use History: None Reported - Past Family History Father Family Medical History: Myocardial Infarction ([place]) Mother Family Medical History: Cancer Sister(s) Family Medical History: Myocardial Infarction ([place]) Daughter(s) Family Medical History: No Reported History <Tacos Shane - Last Filed: 06/03/19 16:51> General Exam Limitations: no limitations <Tacos Shane - Last Filed: 06/03/19 16:51> Course Vital Signs 06/03/19 06/03/19 11:05 14:32 Temperature 98.3 F Pulse Rate 70 75 Respiratory 16 18 Rate Blood Pressure 138/79 143/71 O2 Sat by Pulse 96 96 Oximetry Medical Decision Making - Lab Data Result diagrams: 06/03/19 13:20 06/03/19 13:20 <Tacos Shane - Last Filed: 06/03/19 16:51> - Lab Data Result diagrams: 06/03/19 13:20 06/03/19 13:20 - Radiology Data Radiology results: report reviewed (I did review the imaging and report evidence of a left periprosthetic fracture the medial and lateral condyle of the left knee additionally a subcapital fracture of the right hip), image reviewed <Wally Mckenna - Last Filed: 06/03/19 18:03> - Medical Decision Making Patient was endorsed me by Dr. Berrios pending evaluation the patient by Dr. Woodall the patient will be admitted for inpatient evaluation and treatment. Patient was seen by Dr. Woodall in the emergency department. (Wally Mckenna) - Lab Data Lab Results 06/03/19 06/03/19 06/03/19 Range/Units 13:20 13:20 13:20 WBC 6.1 (3.8-10.6) k/uL RBC 3.46 L (3.80-5.40) m/uL Hgb 10.3 L (11.4-16.0) gm/dL Hct 32.3 L (34.0-46.0) % MCV 93.3 (80.0-100.0) fL MCH 29.8 (25.0-35.0) pg MCHC 31.9 (31.0-37.0) g/dL RDW 13.9 (11.5-15.5) % Plt Count 255 (150-450) k/uL Neutrophils % 77 % Lymphocytes % 9 % Monocytes % 7 % Eosinophils % 2 % Basophils % 1 % Neutrophils # 4.7 (1.3-7.7) k/uL Lymphocytes # 0.6 L (1.0-4.8) k/uL Monocytes # 0.4 (0-1.0) k/uL Eosinophils # 0.2 (0-0.7) k/uL Basophils # 0.1 (0-0.2) k/uL Hypochromasia Slight PT 10.0 (9.0-12.0) sec INR 0.9 (<1.2) APTT 19.4 L (22.0-30.0) sec Sodium 140 (137-145) mmol/L Potassium 4.4 (3.5-5.1) mmol/L Chloride 101 (98-107) mmol/L Carbon Dioxide 29 (22-30) mmol/L Anion Gap 10 mmol/L BUN 47 H (7-17) mg/dL Creatinine 1.32 H (0.52-1.04) mg/dL Est GFR (CKD-EPI)AfAm 43 (>60 ml/min/1.73 sqM) Est GFR (CKD-EPI)NonAf 37 (>60 ml/min/1.73 sqM) Glucose 104 H (74-99) mg/dL Calcium 9.4 (8.4-10.2) mg/dL Magnesium 2.1 (1.6-2.3) mg/dL Disposition <Tacos Shane - Last Filed: 06/03/19 16:51> <Wally Mckenna - Last Filed: 06/03/19 18:03> Clinical Impression: Subcapital fracture of right hip, Periprosthetic fracture around internal prosthetic left knee joint Disposition: ADMITTED IP TO THIS [facility] Condition: Fair Referrals: Maico Rolle MD [Primary Care Provider] - 1-2 days
--- NOTE | 2019-06-03 13:00 | XR ---
EXAMINATION TYPE: XR chest 2V DATE OF EXAM: 06/03/2019 COMPARISON: January 03, 2019 HISTORY: Shortness of breath TECHNIQUE: Frontal and lateral views of the chest are obtained. FINDINGS: Scattered senescent parenchymal changes noted. Hyperinflation compatible with COPD. Areas of linear parenchymal scarring noted. Continued elevation right hemidiaphragm. Chronic pulmonar y venous engorgement. Heart size is stable. Mediastinal structures are stable and grossly unremarkable. No evidence for hilar prominence. Degenerative changes dorsal spine. IMPRESSION: 1. Areas of linear parenchymal scarring noted. Continued elevation right hemidiaphragm. Chronic pulmo nary venous engorgement.
--- NOTE | 2019-06-03 13:01 | XR ---
EXAMINATION TYPE: XR pelvis AP view DATE OF EXAM: 06/03/2019 CLINICAL HISTORY: pain TECHNIQUE: Single view the pelvis is submitted. FINDINGS: No evidence for fracture, dislocation or bony lesion. Joint spaces are well-preserved. S I joints appear symmetric. IMPRESSION: 1. No acute fracture or dislocation seen. ICD 10 NO FRACTURE, INITIAL EVALUATION
--- NOTE | 2019-06-03 13:08 | XR ---
EXAMINATION TYPE: XR Hip Bilateral Complete DATE OF EXAM: 06/03/2019 COMPARISON: NONE HISTORY: Pain TECHNIQUE: 2 views submitted of each hip FINDINGS: There is deformity of the right femur femoral neck Diffuse osteopenia noted. There is moderate to severe arthropathy of the hip joint bilaterally. Hyper trophic change of the acetabulum. Correlate for femoral acetabular impingement. IMPRESSION: 1. Findings suggestive of subcapital fracture of the right femoral neck
--- NOTE | 2019-06-03 13:11 | XR ---
EXAMINATION TYPE: XR knee complete bilateral DATE OF EXAM: 06/03/2019 COMPARISON: NONE HISTORY: Pain TECHNIQUE: Three views are submitted. FINDINGS: There is diffuse osteopenia and soft tissue edema with soft tissue vascular calcification. Right knee: There is displacement of the medial femoral condyle suspicious for an acute fracture invo lving the distal femur extending to the femoral component of the prostheses. Diffuse osteopenia noted . Left knee: Postsurgical changes and diffuse osteopenia. Findings are suspicious for a labral hemarthr osis on the lateral view. IMPRESSION: 1. There are displaced fractures involving the medial and lateral femoral condyle extending to the fe moral prostheses component. 2. On the lateral view of the left knee there is suggestion of a lipohemarthrosis. Occult fracture smith spected
[2019-06-03 13:32] LABS: Basophils # (A) 0.1 k/uL (0-0.2); Basophils % (A) 1 %; Eosinophils # (A) 0.2 k/uL (0-0.7); Eosinophils % (A) 2 %; HCT 32.3 % (34.0-46.0); HGB 10.3 gm/dL (11.4-16.0); Hypochromasia Slight; Lymphocytes # (A) 0.6 k/uL (1.0-4.8); Lymphocytes % (A) 9 %; MCH 29.8 pg (25.0-35.0); MCHC 31.9 g/dL (31.0-37.0); MCV 93.3 fL (80.0-100.0); Mean Platelet Volume 6.5; Monocytes # (A) 0.4 k/uL (0-1.0); Monocytes % (A) 7 %; Neutrophils # (A) 4.7 k/uL (1.3-7.7); Neutrophils % (A) 77 %; Platelet Count 255 k/uL (150-450); RBC 3.46 m/uL (3.80-5.40); RDW 13.9 % (11.5-15.5); WBC 6.1 k/uL (3.8-10.6)
[2019-06-03 13:42] LABS: Calcium 9.4 mg/dL (8.4-10.2); Magnesium 2.1 mg/dL (1.6-2.3); Potassium 4.4 mmol/L (3.5-5.1)
[2019-06-03 14:00] LABS: INR 0.9 (<1.2)
[2019-06-03 14:05] LABS: Partial Thromboplastin Time 19.4 sec (22.0-30.0)
--- NOTE | 2019-06-03 14:36 | CT ---
EXAMINATION TYPE: CT brain june martínez con DATE OF EXAM: 06/03/2019 COMPARISON: 10/26/2012 HISTORY: Fall CT DLP: 1371.[address] of the brain was performed. The ventricles, basal cisterns and sulci overlying the cerebral convexities demonstrate mild enlargem ent. There is no evidence for intracranial hemorrhage or sulcal effacement. There is decreased attenuatio n about the periventricular white matter and deep white matter of both cerebral hemispheres, compatib le with chronic small vessel ischemia. No mass effects are seen. If symptoms persist consider MRI. Osseous calvarium is intact. IMPRESSION: 1. Age related atrophic and chronic small vessel ischemic change without acute intracranial process seen at this time. CT Cervical Spine: Unenhanced CT of the cervical spine was performed with bone and soft tissue window settings submitted . Coronal and sagittal reconstruction is obtained. There is normal alignment and prevertebral soft tissues. No evidence for acute cervical fracture . Scattered degenerative disc disease and spondylosis. Biapical scarring. IMPRESSION: 1. No evidence for acute fracture or subluxation of the cervical spine.
--- NOTE | 2019-06-03 16:23 | CT ---
EXAMINATION TYPE: CT knee LT wo con DATE OF EXAM: 06/03/2019 COMPARISON: Knee x-ray 06/03/2019 HISTORY: Pain rule out fracture Automated exposure control for dose reduction was used. FINDINGS: There is total knee arthroplasty noted to be in place. There is extensive streak artifact identified. This does limit the examination. I cannot exclude fracture involving the medial femoral condylar reg ion. Suprapatellar joint effusion noted. Tibia is grossly intact. IMPRESSION: MARKEDLY LIMITED STUDY GIVEN EXTENSIVE STREAK ARTIFACT FROM THE PATIENT'S TOTAL KNEE ARTHROPLASTY. FR ACTURE INVOLVING THE MEDIAL FEMORAL CONDYLE IS DIFFICULT TO EXCLUDE.
[2019-06-03] MEDS ORDERED: HYDROmorphone 0.5 MG/0.5 ML SYRINGE IVP PRN (18:06)
[2019-06-03] MEDS ORDERED: NALOXONE 0.4 MG/ML 1 ML VIAL IV PRN (18:06)
[2019-06-03] MEDS ORDERED: ONDANSETRON 4 MG/2 ML VIAL IVP PRN (18:06)
[2019-06-03] MEDS ORDERED: FLUTICASONE 50MCG/SPRAY NASAL 16GM EA NOSTRIL PRN (18:12)
[2019-06-03] MEDS ORDERED: IPRATROPIUM-ALBUTEROL 3 ML NEB INHALATION PRN (18:12)
[2019-06-04] MEDS: CARBIDOPA-LEVODOPA 25-100 MG 1 EACH TAB PO SCH ×2 (00:56→08:01)
[2019-06-04] MEDS: HEPARIN SODIUM,PORCINE 5,000 UNIT/ML 1 ML VIAL SQ SCH ×2 (00:56→08:01)
[2019-06-04] MEDS: SODIUM CHLORIDE 0.9% 1,000 ML IV SCH ×2 (00:57→08:00)
[2019-06-04] MEDS ORDERED: PANTOPRAZOLE 40 MG TABLET PO SCH (06:00)
[2019-06-04 07:19] VITALS: BP 101/61; RESP 14; TEMP 98.2
[2019-06-04 07:28] VITALS: PULSE 84
[2019-06-04] MEDS ORDERED: GABAPENTIN 100 MG CAP PO SCH (08:00)
[2019-06-04] MEDS ORDERED: FLUTICASONE 110 MCG INHALER INHALATION SCH (08:00)
[2019-06-04] MEDS ORDERED: FLUoxetine HCL 20 MG CAP PO SCH (08:00)
[2019-06-04] MEDS ORDERED: KETOTIFEN 0.025% OPHTH DROPS 5 ML BTL BOTH EYES SCH (08:00)
[2019-06-04] MEDS ORDERED: BUDESONIDE 0.5 MG/2 ML NEBU INHALATION SCH (08:00)
[2019-06-04] MEDS ORDERED: METOPROLOL TARTRATE 25 MG TAB PO SCH (08:00)
[2019-06-04] MEDS ORDERED: LOSARTAN 25 MG TAB PO SCH (08:00)
[2019-06-04] MEDS ORDERED: FUROSEMIDE 40 MG TAB PO SCH (09:00)
--- NOTE | 2019-06-04 12:03 | P.PN ---
Progress Note - Text Progress Note Date: 06/04/19 The patient has been evaluated for medical management. Patient has been evaluated by orthopedics and plan is for weightbearing as tolerated. No surgical intervention is needed. PT and OT have been ordered. We have reviewed patient's vital signs which are stable and laboratory studies are also stable. Medication reconciliation has been reviewed and no medication changes have been made. Appropriate prescriptions have been provided for return. Patient is cleared for discharge back to [facility] under the care of Dr. Rolle. Formal consult note will follow.
--- NOTE | 2019-06-04 12:17 | P.HPOR ---
<Francesca Davis J - Last Filed: 06/04/19 12:40> History of Present Illness H&P Date: 06/04/19 Chief Complaint: Right hip and left knee pain The patient is an 83-year-old female who has an extensive medical history including A. fib, dementia, COPD, rheumatoid arthritis, Parkinson's disease, and chronic kidney disease. She presented to the emergency department yesterday for evaluation of her right hip and left knee. The patient is a resident at [facility] and x-rays were taken of the right hip and left knee and revealed fractures. She was sent to the hospital for further evaluation by orthopedic surgery. A CT of the left knee was obtained in the emergency department yesterday and revealed a periprosthetic fracture and x-rays of the right hip reveal a probable old subcapital fracture. The family states that there is no specific injury that preceded these fractures. The patient is a max assist at the [employer] and either uses a sit to stand or a Hima lift to get her in the wheelchair. She was admitted for further evaluation and care by orthopedics and physical therapy. Review of Systems Constitutional: Denies chills, Denies fever Cardiovascular: Denies chest pain, Denies shortness of breath Respiratory: Denies cough Gastrointestinal: Denies abdominal pain, Denies diarrhea, Denies nausea, Denies vomiting Musculoskeletal: right: hip pain, left: knee pain, knee stiffness, knee swelling Past Medical History Past Medical History: Atrial Fibrillation, Atrial Flutter, COPD, Dementia, GERD/Reflux, GI Bleed, Hearing Disorder / Deafness, Hyperlipidemia, Memory Impairment, Osteoarthritis (OA), Pneumonia, Rheumatoid Arthritis (RA), Thyroid Disorder Additional Past Medical History / Comment(s): A. fib/A flutter, COPD, hyperlipidemia, vascular dementia, osteoarthritis, RA, overactive bladder, Parkinson disease, depression, chronic kidney disease stage II, left thyroid n odule, meningioma,. chronic low back pain status post recent L5-S1 discectomy with removal of epidural mass. Last Myocardial Infarction Date:: I thyroid left nodule diagnosed October 2012 suspected goiter, meningioma History of Any Multi-Drug Resistant Organisms: MRSA Date of last positivie culture/infection: 2012 MDRO Source:: unknown Past Surgical History: Appendectomy, Back Surgery, Cholecystectomy, Hysterectomy, Orthopedic Surgery Additional Past Surgical History / Comment(s): multiple leg surgeries, bladder prolapse surgery, bilateral total knee arthroplasty, lumbar laminectomy L5-S1 discectomy with epidural mass resection 02/17/[address] Cosby, appendectomy,. cholecystectomy, hysterectomy orthopedic surgery. Past Anesthesia/Blood Transfusion Reactions: No Reported Reaction Past Psychological History: Anxiety, Depression Smoking Status: Never smoker Past Alcohol Use History: None Reported Additional Past Alcohol Use History / Comment(s): Patient currently resides at [facility] for 4 years. She is wheelchair bound. Past Drug Use History: None Reported - Past Family History Father Family Medical History: Myocardial Infarction ([place]) Mother Family Medical History: Cancer Sister(s) Family Medical History: Myocardial Infarction ([place]) Daughter(s) Family Medical History: No Reported History Medications and Allergies Home Medications Medication Instructions Recorded Confirmed Type Acetaminophen [Tylenol] 650 mg PO Q4H PRN 02/06/14 06/03/19 History FLUoxetine HCL 40 mg PO DAILY@0800 02/06/14 06/03/19 History Ferrous Sulfate [Feosol] 325 mg PO DAILY@1700 02/06/14 06/03/19 History Multivitamins, Thera [Multivitamin 1 tab PO DAILY@1700 02/06/14 06/03/19 History (formulary)] Propafenone HCl 150 mg PO TID@0800,1200,1700 02/06/14 06/03/19 History Bisacodyl [Dulcolax] 10 mg RECTAL DAILY PRN 01/03/19 06/03/19 History Carbidopa-Levodopa 25-100 mg 1 tab PO TID@0800,1400,2100 01/03/19 06/03/19 History [Sinemet 25-100 mg] Cholecalciferol [Vitamin D3 (25 1,000 unit PO DAILY@1700 01/03/19 06/03/19 History Mcg = 1000 Iu)] Fluticasone Nasal [place] [Flonase 1 spray EA NOSTRIL DAILY PRN 01/03/19 06/03/19 History Nasal [place]] Fluticasone Propionate [Flovent 1 puff INHALATION RT-BID@0800,1700 01/03/19 06/03/19 History Hfa 110 mcg] L.acidoph,Paracasei, B.lactis 1 cap PO DAILY@0800 01/03/19 06/03/19 History [Probiotic] Loratadine [Claritin] 10 mg PO DAILY@0800 01/03/19 06/03/19 History Losartan [Cozaar] 25 mg PO DAILY@0800 01/03/19 06/03/19 History Mag Hydrox/Al Hydrox/Simeth 15 ml PO QID PRN 01/03/19 06/03/19 History [Maalox] Magnesium Hydroxide [Milk of 7,200 mg PO DAILY PRN 01/03/19 06/03/19 History Magnesia Concentrate] Magnesium Oxide [Magox 400] 400 mg PO DAILY@1700 01/03/19 06/03/19 History Na Phos,M-B/Na Phos,Di-Ba [Fleet 133 ml RECTAL DAILY PRN 01/03/19 06/03/19 History Adult] Potassium Chloride ER [K-Dur 20] 20 meq PO DAILY@0800 01/03/19 06/03/19 History Albuterol Nebulized [Ventolin 2.5 mg INHALATION RT-Q4H PRN 05/19/19 06/03/19 History Nebulized] Budesonide [Pulmicort] 0.5 mg INHALATION RT-BID@0800,1700 05/19/19 06/03/19 History Ipratropium-Albuterol Nebulize 3 ml INHALATION RT-Q6H PRN 05/19/19 06/03/19 History [Duoneb 0.5 mg-3 mg/3 ml Soln] Olopatadine HCl [Pataday] 1 drop BOTH EYES DAILY@0800 05/19/19 06/03/19 History Apixaban [Eliquis] 2.5 mg PO DAILY@1700 06/03/19 06/03/19 History Furosemide [Lasix] 40 mg PO BID@0900,1700 06/03/19 06/03/19 History Metoprolol Tartrate [Lopressor] 25 mg PO BID@0800,1700 06/03/19 06/03/19 History Pantoprazole Sodium [Protonix] 40 mg PO DAILY@0600 06/03/19 06/03/19 History Gabapentin [Neurontin] 100 mg PO BID@0800,1700 #6 cap 06/04/19 Rx HYDROcodone/APAP 5-325MG [[place] 1 tab PO HS@2100 #3 tab 06/04/19 Rx 5-325] HYDROcodone/APAP 5-325MG [[place] 1 tab PO Q4HR PRN #18 tab 06/04/19 Rx 5-325] Allergies Allergy/AdvReac Type Severity Reaction Status Date / Time pneumococcal vaccine Allergy Rash/Hives Verified 06/03/19 11:29 Physical Examination The patient is an 83 year old female that is no acute distress. She is alert and oriented x1. The patient's head is normocephalic and atraumatic. Exam of the cervical spine reveals no pain upon palpation or range of motion. Exam of the bilateral upper extremities reveal no obvious deformities or pain upon range of motion. Exam of the left lower extremity reveals mild to moderate swelling to the left knee. There is mild pain to palpation to the anterior knee and distal femur. Exam of the right lower extremity reveals no obvious deformity or open wounds. No pain upon palpation to the lateral hips. There is mild pain to range of motion of the left knee and no pain to logrolling or gentle flexion of the right hip. Bilateral calves are soft and nontender. Patient has weak foot and ankle motion bilaterally. Neurological and circulatory status is intact. Results - Labs Labs: Abnormal Lab Results - Last 24 Hours (Table) 06/03/19 06/03/19 06/03/19 Range/Units 13:20 13:20 13:20 RBC 3.46 L (3.80-5.40) m/uL Hgb 10.3 L (11.4-16.0) gm/dL Hct 32.3 L (34.0-46.0) % Lymphocytes # 0.6 L (1.0-4.8) k/uL APTT 19.4 L (22.0-30.0) sec BUN 47 H (7-17) mg/dL Creatinine 1.32 H (0.52-1.04) mg/dL Glucose 104 H (74-99) mg/dL H & H 06/03/19 Range/Units 13:20 Hgb 10.3 L (11.4-16.0) gm/dL Hct 32.3 L (34.0-46.0) % Coagulation 06/03/19 Range/Units 13:20 INR 0.9 (<1.2) Result Diagrams: 06/03/19 13:20 06/03/19 13:20 - Diagnostic results Hip x-ray: image reviewed (X-rays of the right hip reveal a probable old subcapital fracture. No acute fracture seen.) Knee CT: image reviewed (CT of the left knee reveals a periprosthetic distal femur fracture. Fracture alignment is satisfactory for patient's physical condition.) Assessment and Plan (1) Periprosthetic fracture around internal prosthetic left knee joint Status: Acute Code(s): M97.12XA - PERIPROSTH FRACTURE AROUND INTERNAL PROSTH L KNEE JT, INIT SNOMED Code(s): 187908490 (2) Subcapital fracture of right hip Status: Acute Code(s): S72.011A - UNSP INTRACAPSULAR FRACTURE OF RIGHT FEMUR, INIT FOR CLOS FX SNOMED Code(s): 583228239 (3) Atrial fib/flutter, transient Status: Acute Code(s): BOI8983 - SNOMED Code(s): 08244146 (4) GERD (gastroesophageal reflux disease) Status: Acute Code(s): K21.9 - GASTRO-ESOPHAGEAL REFLUX DISEASE WITHOUT ESO PHAGITIS SNOMED Code(s): 937746099 (5) Hyperlipidemia Status: Acute Code(s): E78.5 - HYPERLIPIDEMIA, UNSPECIFIED SNOMED Code(s): 08715143 (6) Hypertension Status: Acute Code(s): I10 - ESSENTIAL (PRIMARY) HYPERTENSION SNOMED Code(s): 09863753 (7) Osteoarthritis Status: Acute Code(s): M19.90 - UNSPECIFIED OSTEOARTHRITIS, UNSPECIFIED SITE SNOMED Code(s): 338911211 (8) Parkinson disease Status: Acute Code(s): G20 - PARKINSON'S DISEASE SNOMED Code(s): 07606834 (9) Rheumatoid arthritis Status: Acute Code(s): M06.9 - RHEUMATOID ARTHRITIS, UNSPECIFIED SNOMED Code(s): 55759163 (10) Vascular dementia Status: Acute Code(s): F01.50 - VASCULAR DEMENTIA WITHOUT BEHAVIORAL DISTURBANCE SNOMED Code(s): 276185560 Plan: The clinical and x-ray findings were discussed with the patient and the patient's family by Dr. Woodall last night. The case was discussed at length with Dr. Woodall. Physical and occupational therapy has been ordered for evaluation. If the patient tolerates therapy and her pain is controlled, the patient may be discharged back to [facility] today. Continue pain control and activities as tolerated. <Roberto Woodall - Last Filed: 06/06/19 11:53> Results - Labs Labs: H & H 06/03/19 Range/Units 13:20 Hgb 10.3 L (11.4-16.0) gm/dL Hct 32.3 L (34.0-46.0) % Coagulation 06/03/19 Range/Units 13:20 INR 0.9 (<1.2) Result Diagrams: 06/03/19 13:20 06/03/19 13:20 Assessment and Plan Plan: Discussed with DENTON Davis and agree with above. Patient was seen and examined by me as well. S: Patient was evaluated in the emergency department with daughters at bedside and provides additional history. They report that she is been complaining of lower extremity pain for the past s everal days but the location of the complaint changes. Initially it was on the right, but occasionally it is on left. They deny any recalled or reported falls or trauma. They state that she is minimally mobile, requiring a H[employer] lift and stand assist for transfers. She puts very little weight on the left leg due to chronic deformity at the ankle. She was just recently [facility] the hosp [facility] for treatment of pneumonia. O: No tenderness to palpation over the greater trochanters bilaterally. No pain with logroll or limited passive circumduction of the right hip. Mild diffuse tenderness around the left knee, more prominent medially. No significant edema or ecchymosis. She does demonstrate pain with attempted passive motion of the knee. Imaging: X-rays of the pelvis and hips and CT scan of the left knee were reviewed and interpreted from an orthopedic standpoint. These demonstrate a subcapital imp action deformity of the right femoral neck, consistent with a fracture of indeterminate age. This appears similar to imaging performed on 05/19/2019. There is no cortical step-off at the medial neck. Excellent alignment on the lateral view. No fractures identified in the pelvis or left hip. Mildly displaced periprosthetic fracture of the left medial femoral condyle. An effusion is noted. The prosthesis appears well-fixed. No other fractures are identified. No dislocation or subluxation. A: 1. Impacted right subcapital femoral neck fracture - likely subacute 2. Minimally displaced periprosthetic fracture of the left medial femoral condyle with previous total knee arthroplasty 3. Obesity 4. Dementia 5. Multiple medical comorbidities P: I discussed the clinical and radiographic findings in detail with the patient and her family. They sent her exam, my impression is that the right hip fracture is not acute and it appears minimally symptomatic. I recommended nonsurgical treatment and continued observation. The left knee periprosthetic fracture does appear to be acute. Treatment options were discussed, including nonoperative treatment with protected weightbearing versus ORIF versus revision total knee arthroplasty. They are not interested in pursuing any surgical options at this time. The fracture is minimally displaced and the implant appears stable. Recommended admitting the patient for observation. We will have her work with physical therapy in the morning to determine if she can safely transfer with minimal pain. If so, we will likely discharge her back to rehab. Questions were invited and answered. They expressed understanding and agreement with this plan. Roberto Woodall D.O. [facility]
--- NOTE | 2019-06-04 12:19 | P.DS ---
Providers Date of admission: 06/03/19 18:06 Expected date of discharge: 06/04/19 Attending physician: Roberto Woodall DO Consults: 06/03/19 16:27 Consult Physician Stat Consulting Provider: Roberto Woodall Consult Reason/Comments: knee and hip fracture Do you want consulting provider notified?: Already Contacted Primary care physician: Maico Floresher - Discharge Diagnosis(es) (1) Periprosthetic fracture around internal prosthetic left knee joint Current Visit: Yes Status: Acute (2) Subcapital fracture of right hip Current Visit: Yes Status: Acute (3) Atrial fib/flutter, transient Current Visit: No Status: Acute (4) Hyperlipidemia Current Visit: No Status: Acute (5) Hypertension Current Visit: No Status: Acute (6) Parkinson disease Current Visit: No Status: Acute (7) Rheumatoid arthritis Current Visit: No Status: Acute (8) Vascular dementia Current Visit: No Status: Acute Hospital Course: The patient is an 83-year-old female who was admitted from the emergency department yesterday for evaluation of a periprosthetic left distal femur fracture and a probable old subcapital fracture on the right. The patient has been seen and evaluated by physical and occupational therapy and was considered at her baseline function. She was placed in a chair with a Hima lift with max assist today. Her pain is well-controlled at this time. On exam the patient's left knee is swollen and mildly tender upon palpation. No tenderness to the right leg. Calves are soft and nontender. She has weak foot and ankle motion. Neurological and circulatory status is intact. The patient has also been evaluated by internal medicine and is stable to return back to [facility]. She is also orthopedically stable for discharge back to [facility] today. Pertinent Studies: Laboratory Tests 06/03/19 06/03/19 06/03/19 13:20 13:20 13:20 WBC 6.1 RBC 3.46 L Hgb 10.3 L MCV 93.3 PT 10.0 INR 0.9 APTT 19.4 L BUN 47 H Creatinine 1.32 H Glucose 104 H Patient Condition at Discharge: Fair Plan - Discharge Summary Discharge Rx Participant: No New Discharge Prescriptions: Continue Propafenone HCl 150 mg PO TID@0800,1200,1700 Multivitamins, Thera [Multivitamin (formulary)] 1 tab PO DAILY@1700 Ferrous Sulfate [Feosol] 325 mg PO DAILY@1700 FLUoxetine HCL 40 mg PO DAILY@0800 Acetaminophen [Tylenol] 650 mg PO Q4H PRN PRN Reason: Fever And/ Or Pain Cholecalciferol [Vitamin D3 (25 Mcg = 1000 Iu)] 1,000 unit PO DAILY@1700 Carbidopa-Levodopa 25-100 mg [Sinemet 25-100 mg] 1 tab PO TID@0800,1400,2100 Potassium Chloride ER [K-Dur 20] 20 meq PO DAILY@0800 L.acidoph,Paracasei, B.lactis [Probiotic] 1 cap PO DAILY@0800 Magnesium Oxide [Magox 400] 400 mg PO DAILY@1700 Magnesium Hydroxide [Milk of Magnesia Concentrate] 7,200 mg PO DAILY PRN PRN Reason: Constipation Mag Hydrox/Al Hydrox/Simeth [Maalox] 15 ml PO QID PRN PRN Reason: Gi Upset Losartan [Cozaar] 25 mg PO DAILY@0800 Na Phos,M-B/Na Phos,Di-Ba [Fleet Adult] 133 ml RECTAL DAILY PRN PRN Reason: Constipation Fluticasone Propionate [Flovent Hfa 110 mcg] 1 puff INHALATION RT- BID@0800,1700 Fluticasone Nasal [place] [Flonase Nasal [place]] 1 spray EA NOSTRIL DAILY PRN PRN Reason: Allergy Symptoms Loratadine [Claritin] 10 mg PO DAILY@0800 Bisacodyl [Dulcolax] 10 mg RECTAL DAILY PRN PRN Reason: Constipation Albuterol Nebulized [Ventolin Nebulized] 2.5 mg INHALATION RT-Q4H PRN PRN Reason: Shortness Of Breath Budesonide [Pulmicort] 0.5 mg INHALATION RT-BID@0800,1700 Olopatadine HCl [Pataday] 1 drop BOTH EYES DAILY@0800 Ipratropium-Albuterol Nebulize [Duoneb 0.5 mg-3 mg/3 ml Soln] 3 ml INHALATION RT-Q6H PRN PRN Reason: Shortness Of Breath Apixaban [Eliquis] 2.5 mg PO DAILY@1700 Pantoprazole Sodium [Protonix] 40 mg PO DAILY@0600 Furosemide [Lasix] 40 mg PO BID@0900,1700 Metoprolol Tartrate [Lopressor] 25 mg PO BID@0800,1700 Gabapentin [Neurontin] 100 mg PO BID@0800,1700 #6 cap HYDROcodone/APAP 5-325MG [[place] 5-325] 1 tab PO HS@2100 #3 tab HYDROcodone/APAP 5-325MG [[place] 5-325] 1 tab PO Q4HR PRN #18 tab PRN Reason: Moderate Pain Discharge Medication List Acetaminophen [Tylenol] 650 mg PO Q4H PRN 02/06/14 [History] FLUoxetine HCL 40 mg PO DAILY@0802/06/14 [History] Ferrous Sulfate [Feosol] 325 mg PO DAILY@169902/06/14 [History] Multivitamins, Thera [Multivitamin (formulary)] 1 tab PO DAILY@169902/06/14 [History] Propafenone HCl 150 mg PO TID@0800,1200,169902/06/14 [History] Bisacodyl [Dulcolax] 10 mg RECTAL DAILY PRN 01/03/19 [History] Carbidopa-Levodopa 25-100 mg [Sinemet 25-100 mg] 1 tab PO TID@0800,1400,2100 01/03/19 [History] Cholecalciferol [Vitamin D3 (25 Mcg = 1000 Iu)] 1,000 unit PO DAILY@169901/03/19 [History] Fluticasone Nasal [place] [Flonase Nasal [place]] 1 spray EA NOSTRIL DAILY PRN 01/03/19 [History] Fluticasone Propionate [Flovent Hfa 110 mcg] 1 puff INHALATION RT-BID@0800,17001/03/19 [History] L.acidoph,Paracasei, B.lactis [Probiotic] 1 cap PO DAILY@0801/03/19 [History] Loratadine [Claritin] 10 mg PO DAILY@0801/03/19 [History] Losartan [Cozaar] 25 mg PO DAILY@79901/03/19 [History] Mag Hydrox/Al Hydrox/Simeth [Maalox] 15 ml PO QID PRN 01/03/19 [History] Magnesium Hydroxide [Milk of Magnesia Concentrate] 7,200 mg PO DAILY PRN 01/03/19 [History] Magnesium Oxide [Magox 400] 400 mg PO DAILY@1700 01/03/19 [History] Na Phos,M-B/Na Phos,Di-Ba [Fleet Adult] 133 ml RECTAL DAILY PRN 01/03/19 [History] Potassium Chloride ER [K-Dur 20] 20 meq PO DAILY@0800 01/03/19 [History] Albuterol Nebulized [Ventolin Nebulized] 2.5 mg INHALATION RT-Q4H PRN 05/19/19 [History] Budesonide [Pulmicort] 0.5 mg INHALATION RT-BID@0800,1700 05/19/19 [History] Ipratropium-Albuterol Nebulize [Duoneb 0.5 mg-3 mg/3 ml Soln] 3 ml INHALATION RT-Q6H PRN 05/19/19 [History] Olopatadine HCl [Pataday] 1 drop BOTH EYES DAILY@0800 05/19/19 [History] Apixaban [Eliquis] 2.5 mg PO DAILY@1700 06/03/19 [History] Furosemide [Lasix] 40 mg PO BID@0900,1700 06/03/19 [History] Metoprolol Tartrate [Lopressor] 25 mg PO BID@0800,1700 06/03/19 [History] Pantoprazole Sodium [Protonix] 40 mg PO DAILY@0600 06/03/19 [History] Gabapentin [Neurontin] 100 mg PO BID@0800,1700 #6 cap 06/04/19 [Rx] HYDROcodone/APAP 5-325MG [[place] 5-325] 1 tab PO HS@2100 #3 tab 06/04/19 [Rx] HYDROcodone/APAP 5-325MG [[place] 5-325] 1 tab PO Q4HR PRN #18 tab 06/04/19 [Rx] Follow up Appointment(s)/Referral(s): Maico Rolle MD [Primary Care Provider] - 1 Week (at [facility]) Roberto Woodall DO [Medical Doctor] - 4 Weeks Activity/Diet/Wound Care/Special Instructions: Weightbearing as tolerated to the bilateral lower extremities with max assist Activities as tolerated. Discharge Disposition: TRANSFER TO SNF/ECF
--- NOTE | 2019-06-04 13:55 | P.CONS ---
History of Present Illness - Reason for Consult Consult date: 06/04/19 - History of Present Illness This is an 83-year-old female patient of Dr. Rolle, long-term resident at [facility] with past medical history of vascular dementia, paroxysmal atrial fibrillation, hyperlipidemia, chronic obstructive pulmonary disease, osteoarthritis, rheumatoid arthritis, thyroid disorder, peptic ulcer disease, Parkinson disease, meningioma, DDD status post lumbar discectomy. Patient had elevated troponin, hypoxic and tachycardia and concern for pulmonary embolism at [facility] and patient was sent to [facility] for evaluation on May 19. Pulmonary embolism was ruled out and patient was treated for atrial flutter, troponin leak and acute kidney injury. CAT scan angiogram of the chest showed no evidence of pulmonary embolism. Patchy infiltrate and atelectasis in the upper and lower lobes bilaterally that are increased. Interstitial fibrosis. Small pleural effusions unchanged. Bronchiectasis right lower lobe. Markedly enlarged left thyroid lobe consistent with multinodular goiter appears increased CAT SCAN. She discharged back to [facility] on May 24. The patient was sent from [facility] to [facility] due to abnormal x-ray of the left knee. There was concern of fractures in the periprosthetic area. CAT scan of the brain and cervical spine showed no acute process. Chest x-ray unremarkable. Left knee x-ray periprosthetic fracture. X-rays of the right hip revealed probable old subcapital fracture. Knee CAT scan reveals a periprosthetic distal femur fracture. Fracture alignment is satisfactory. Patient was admitted under the care of orthopedics and it was determined that the patient did not require any surgical intervention. PT and OT were ordered and patient was cleared for discharge back to [facility]. Review of Systems Constitutional: Denies chills, Denies fatigue, Denies fever, Denies poor appetite, Denies weight loss Eyes: denies blurred vision, denies pain Ears, nose, mouth and throat: Denies dental pain, Denies headache, Denies nasal congestion, Denies nasal discharge, Denies sore throat, Denies vertigo Cardiovascular: Denies chest pain, Denies dyspnea on exertion, Denies edema, Denies leg edema, Denies shortness of breath, Denies syncope Respiratory: Denies congestion, Denies cough, Denies cough with sputum, Denies dyspnea, Denies excessive sputum, Denies hemoptysis, Denies wheezing Gastrointestinal: Denies abdominal pain, Denies diarrhea, Denies loss of appetite, Denies nausea, Denies vomiting Genitourinary: Denies dysuria, Denies hematuria Musculoskeletal: Reports gait dysfunction, Reports muscle weakness, Denies myalgias Integumentary: Denies pruritus, Denies rash, Denies wounds Neurological: Denies change in mentation, Denies change in speech, Denies numbness, Denies seizures, Denies weakness Psychiatric: Denies anxiety, Denies depression Endocrine: Denies fatigue, Denies weight change Past Medical History Past Medical History: Atrial Fibrillation, Atrial Flutter, COPD, Dementia, GERD/Reflux, GI Bleed, Hearing Disorder / Deafness, Hyperlipidemia, Memory Impairment, Osteoarthritis (OA), Pneumonia, Rheumatoid Arthritis (RA), Thyroid D isorder Additional Past Medical History / Comment(s): A. fib/A flutter, COPD, hyperlipidemia, vascular dementia, osteoarthritis, RA, overactive bladder, Parkinson disease, depression, chronic kidney disease stage II, left thyroid nodule, meningioma,. chronic low back pain status post recent L5-S1 discectomy with removal of epidural mass. Last Myocardial Infarction Date:: I thyroid left nodule diagnosed October 2012 suspected goiter, meningioma History of Any Multi-Drug Resistant Organisms: MRSA Year Discovered:: 2012 MDRO Source:: unknown Past Surgical History: Appendectomy, Back Surgery, Cholecystectomy, Hysterectomy, Orthopedic Surgery Additional Past Surgical History / Comment(s): multiple leg surgeries, bladder prolapse surgery, bilateral total knee arthroplasty, lumbar laminectomy L5-S1 discectomy with epidural mass resection 02/17/[address] Cosby, appendectomy,. cholecystectomy, hysterectomy orthopedic surgery. Past Anesthesia/Blood Transfusion Reactions: No Reported Reaction Past Psychological History: Anxiety, Depression Smoking Status: Never smoker Past Alcohol Use History: None Reported Additional Past Alcohol Use History / Comment(s): Patient currently resides at [facility] for 4 years. She is wheelchair bound. Past Drug Use History: None Reported - Past Family History Father Family Medical History: Myocardial Infarction ([place]) Mother Family Medical History: Cancer Sister(s) Family Medical History: Myocardial Infarction ([place]) Daughter(s) Family Medical History: No Reported History Medications and Allergies Home Medications Medication Instructions Recorded Confirmed Type Acetaminophen [Tylenol] 650 mg PO Q4H PRN 02/06/14 06/03/19 History FLUoxetine HCL 40 mg PO DAILY@0800 02/06/14 06/03/19 History Ferrous Sulfate [Feosol] 325 mg PO DAILY@17002/06/14 06/03/19 History Multivitamins, Thera [Multivitamin 1 tab PO DAILY@1700 02/06/14 06/03/19 History (formulary)] Propafenone HCl 150 mg PO TID@0800,1200,1700 02/06/14 06/03/19 History Bisacodyl [Dulcolax] 10 mg RECTAL DAILY PRN 01/03/19 06/03/19 History Carbidopa-Levodopa 25-100 mg 1 tab PO TID@0800,1400,2100 01/03/19 06/03/19 History [Sinemet 25-100 mg] Cholecalciferol [Vitamin D3 (25 1,000 unit PO DAILY@169901/03/19 06/03/19 History Mcg = 1000 Iu)] Fluticasone Nasal [place] [Flonase 1 spray EA NOSTRIL DAILY PRN 01/03/19 06/03/19 History Nasal [place]] Fluticasone Propionate [Flovent 1 puff INHALATION RT-BID@0800,1700 01/03/19 06/03/19 History Hfa 110 mcg] L.acidoph,Paracasei, B.lactis 1 cap PO DAILY@0801/03/19 06/03/19 History [Probiotic] Loratadine [Claritin] 10 mg PO DAILY@0800 01/03/19 06/03/19 History Losartan [Cozaar] 25 mg PO DAILY@0800 01/03/19 06/03/19 History Mag Hydrox/Al Hydrox/Simeth 15 ml PO QID PRN 01/03/19 06/03/19 History [Maalox] Magnesium Hydroxide [Milk of 7,200 mg PO DAILY PRN 01/03/19 06/03/19 History Magnesia Concentrate] Magnesium Oxide [Magox 400] 400 mg PO DAILY@169901/03/19 06/03/19 History Na Phos,M-B/Na Phos,Di-Ba [Fleet 133 ml RECTAL DAILY PRN 01/03/19 06/03/19 History Adult] Potassium Chloride ER [K-Dur 20] 20 meq PO DAILY@0800 01/03/19 06/03/19 History Albuterol Nebulized [Ventolin 2.5 mg INHALATION RT-Q4H PRN 05/19/19 06/03/19 History Nebulized] Budesonide [Pulmicort] 0.5 mg INHALATION RT-BID@0800,1700 05/19/19 06/03/19 History Ipratropium-Albuterol Nebulize 3 ml INHALATION RT-Q6H PRN 05/19/19 06/03/19 History [Duoneb 0.5 mg-3 mg/3 ml Soln] Olopatadine HCl [Pataday] 1 drop BOTH EYES DAILY@0800 05/19/19 06/03/19 History Apixaban [Eliquis] 2.5 mg PO DAILY@1700 06/03/19 06/03/19 History Furosemide [Lasix] 40 mg PO BID@0900,1700 06/03/19 06/03/19 History Metoprolol Tartrate [Lopressor] 25 mg PO BID@0800,1700 06/03/19 06/03/19 History Pantoprazole Sodium [Protonix] 40 mg PO DAILY@0600 06/03/19 06/03/19 History Gabapentin [Neurontin] 100 mg PO BID@0800,1700 #6 cap 06/04/19 Rx HYDROcodone/APAP 5-325MG [[place] 1 tab PO HS@2100 #3 tab 06/04/19 Rx 5-325] HYDROcodone/APAP 5-325MG [[place] 1 tab PO Q4HR PRN #18 tab 06/04/19 Rx 5-325] Allergies Allergy/AdvReac Type Severity Reaction Status Date / Time pneumococcal vaccine Allergy Rash/Hives Verified 06/03/19 11:29 Physical Exam Vitals: Vital Signs Temp Pulse Pulse Resp BP BP Pulse Ox 06/04/19 07:27 84 06/04/19 07:15 80 06/04/19 07:00 98.2 F 86 14 101/61 90 L 06/04/19 04:00 18 06/04/19 01:13 98.2 F 82 18 101/64 95 06/03/19 19:40 18 06/03/19 18:00 70 18 145/71 96 06/03/19 14:32 75 18 143/71 96 Intake and Output 1006/04/19 06/04/19 22:59 06:59 14:59 Output Total 800 Balance -800 Output: Urine 800 Other: Voiding Method Indwelling Catheter Indwelling Catheter Indwelling Catheter General appearance: Obese, no distress - EENT Eyes: Reports EOMI, Reports PERRLA, Denies photophobia ENT: Reports hard of hearing, Reports NA/AT, Reports normal oropharynx, Denies thrush Ears: bilateral: normal - Neck Neck: Reports normal ROM, Denies lymphadenopathy, Denies stridor, Denies thyromegaly Carotids: bilateral: upstroke delayed Thyroid: bilateral: enlarged - Respiratory Respiratory: bilateral: diminished, negative: dullness, rales, rhonchi, wheezing, prolonged expiration, prolonged inspiration - Cardiovascular Rhythm: regular Heart sounds: normal: S1, S2 Abnormal Heart Sounds: Reports systolic murmur (Systolic ejection murmur 2/6 located in the left sternal border), Reports S3 Gallop, Denies rub, Denies S4 Gallop, Denies click campus monitor sinus rhythm - Gastrointestinal General gastrointestinal: Reports normal bowel sounds, nondistended, Reports soft, no tenderness, Denies hepatomegaly, Denies organomegaly, Denies rigid, Denies scaphoid, Denies splenomegaly, Denies umbilical hernia, Denies ventral hernia - Integumentary Integumentary: Normal - Neurologic Neurologic: CNII-XII intact - Musculoskeletal Musculoskeletal: Reports generalized weakness, Reports left sided weakness, deformity of the left foot - Psychiatric Psychiatric: Reports A&O to person, noted short-term memory deficits, no appropriate affect, no intact judgment & insight Results CBC & Chem 7: 06/03/19 13:20 06/03/19 13:20 Labs: Abnormal Lab Results - Last 24 Hours (Table) 06/03/19 06/03/19 06/03/19 Range/Units 13:20 13:20 13:20 RBC 3.46 L (3.80-5.40) m/uL Hgb 10.3 L (11.4-16.0) gm/dL Hct 32.3 L (34.0-46.0) % Lymphocytes # 0.6 L (1.0-4.8) k/uL APTT 19.4 L (22.0-30.0) sec BUN 47 H (7-17) mg/dL Creatinine 1.32 H (0.52-1.04) mg/dL Glucose 104 H (74-99) mg/dL Assessment and Plan Plan: 1. Periprosthetic fracture left knee, subcapital fracture right hip. All imaging reviewed by orthopedics and this appears to be old. PT and OT ordered. Patient cleared for discharge back to [facility] 2. Chronic kidney disease. Avoid nephrotoxic agents. 3. Vascular dementia, stable. 4. Paroxysmal atrial fibrillation. Propafenone 150 mg 3 times daily. 5. COPD without exacerbation. Continue DuoNeb treatments, Pulmicort 0.5 mg twice daily. 6. Hypertension. Continue losartan 25 mg daily, Lasix 40 mg daily. 7. Hyperlipidemia. 8. Generalized osteoarthritis. 9. History of rheumatoid arthritis. 10. Hypothyroidism with large goiter, stable. 11. Peptic ulcer disease. 12. Parkinson's disease. Continue Sinemet 3 times daily, gabapentin 100 mg twice daily. 13. Meningioma. Discharge plan: Return to [facility] Impression and plan of care have been directed as dictated by the signing physician. Brenda Lopez nurse practitioner acting as scribe for signing physician.
[2019-06-04 14:51] VITALS: BMI 25.8
== END 2019-06-04 14:25 | DRG 559 ==
LOC: EC 11:00 → 4SSUR 18:06
PROVIDERS: ADMIT Orthopaedic Surgery; ATTEND Orthopaedic Surgery
DX: M97.12XA Periprosthetic fracture around internal prosthetic left knee joint, initial encounter (principal); S72.011A Unspecified intracapsular fracture of right femur, initial encounter for closed fracture; F01.51 Vascular dementia, unspecified severity, with behavioral disturbance; J98.11 Atelectasis; G20 Parkinson's disease; I48.0 Paroxysmal atrial fibrillation; J44.9 Chronic obstructive pulmonary disease, unspecified; M06.9 Rheumatoid arthritis, unspecified; E04.2 Nontoxic multinodular goiter; E78.5 Hyperlipidemia, unspecified; F32.9 Major depressive disorder, single episode, unspecified; F41.9 Anxiety disorder, unspecified; H91.90 Unspecified hearing loss, unspecified ear; I12.9 Hypertensive chronic kidney disease with stage 1 through stage 4 chronic kidney disease, or unspecified chronic kidney disease; K21.0 Gastro-esophageal reflux disease with esophagitis; M19.90 Unspecified osteoarthritis, unspecified site; N18.2 Chronic kidney disease, stage 2 (mild); N32.81 Overactive bladder; G89.29 Other chronic pain; M54.5 Low back pain; E03.9 Hypothyroidism, unspecified; D32.9 Benign neoplasm of meninges, unspecified; E66.9 Obesity, unspecified; K27.9 Peptic ulcer, site unspecified, unspecified as acute or chronic, without hemorrhage or perforation; Z68.25 Body mass index [BMI] 25.0-25.9, adult; Z88.7 Allergy status to serum and vaccine; Z86.14 Personal history of Methicillin resistant Staphylococcus aureus infection; Z79.01 Long term (current) use of anticoagulants; Z79.51 Long term (current) use of inhaled steroids; Z79.899 Other long term (current) drug therapy; Z99.3 Dependence on wheelchair; Z90.710 Acquired absence of both cervix and uterus; Z90.49 Acquired absence of other specified parts of digestive tract; Z96.651 Presence of right artificial knee joint; Z82.49 Family history of ischemic heart disease and other diseases of the circulatory system
CPT/HCPCS: 36415; 70450; 71046; 72125; 72170; 73521; 80048; 83735; 85025; 85610; 85730; 93005; 94640; 99285